=== PATIENT | female | born 1945 | race Caucasian/White ===

== ENCOUNTER 2023-02-14 08:33 | Emergency (ER) | payer OTHER, SELFPAY ==
[2023-02-14 08:34] VITALS: BP 163/88; PULSE 113; RESP 18; TEMP 36.4; O2SAT 98; BMI 19.4
--- NOTE | 2023-02-14 08:47 | EDS_ITS ---
HPI History of Present Illness Chief Complaint: Rash Detail of Chief Complaint: Rash x8 days Informant: patient Narrative Narrative: Patient presents with a rash that started 8 days ago. Patient states the rash is on her back wrapping under her armpit into the anterior chest. Rash painful at times and only involves the left side. She has not had any recent illness. Denies any new soaps or detergents or allergens or any contact with any type of allergic substances. [facility] Medical History (Updated 02/14/23 @ 08:[address] Blanche Arizmendi, ) Anxiety COPD (chronic obstructive pulmonary disease) Lung cancer Home Medications famciclovir 500 mg tablet 500 mg PO Q8H 7 days #21 tabs 02/14/23 [Rx Last Taken Unknown] hydrocodone-acetaminophen 5-325mg 5mg-325mg 1 tab PO Q4H PRN PRN Pain 2 days #10 TABLETS 02/14/23 [Rx Last Taken Unknown] prednisone 20 mg tablet 40 mg (2 x 20 mg) PO DAILY #10 tabs 02/14/23 [Rx Last Taken Unknown] Allergy/AdvReac Type Severity Reaction Status Date / Time fentanyl Allergy Intermediate Rash Verified 02/14/23 08:36 ROS ROS ED Review of Systems ROS Unobtainable: other Constitutional Constitutional ED: Reports lethargy; Denies chills, fever(s), sweats or weight loss Eyes Eyes: Denies blurry vision, change in vision or diplopia ENT ENT ED: Denies rhinorrhea or sore throat Cardiovascular Cardiovascular: Denies chest pain, orthopnea or racing heartbeat Respiratory/Chest Respiratory/Chest: Denies cough, dyspnea, dyspnea on exertion, orthopnea or sputum Gastrointestinal Gastrointestinal: Denies abdominal pain, diarrhea, nausea or vomiting Genitourinary Genitourinary ED: Denies dysuria, hematuria or urinary frequency Musculoskeletal Musculoskeletal: Denies arthralgias, back pain, myalgias or neck pain Integumentary Reports rash; Denies abscess or Abrasions Neurologic Neurologic: Denies headache(s) or weakness Psychiatric Psychiatric: Denies anxiety, depression or suicidal thoughts Endocrine Endocrinology: Denies polydipsia, polyphagia or polyuria Hematologic/Lymphatic Hematologic/Lymphatic: Denies easy bleeding, easy bruising or lymphadenopathy Allergic/Immunologic Allergic/Immunologic ED: Denies mouth swelling, tongue swelling or urticaria EXAM Physical Exam Const Vital Signs: 02/14/23 08:34 Temperature 97.6 F L Temperature Source Temporal Pulse Rate 113 H Respiratory Rate 18 Blood Pressure 163/88 H Blood Pressure Mean 113 Pulse Ox 98 Oxygen Delivery Method Room Air Positive well nourished and well developed General Appearance ED: well developed and NAD HEENT Reports TM's clear and moist mucous membranes normocephalic and atraumatic; Negative for trauma or tenderness Tympanic Membrane ED: Yes TM's clear Eyes PERRL and EOMs intact bilaterally General Eye ED: Negative for pale conjunctiva or scleral icterus Neck no lymphadenopathy, supple and no JVD General: Negative for tenderness Chest Wall inspection of chest normal and palpation of chest normal Chest: Negative for tenderness Resp normal respiratory effort and clear to auscultation bilaterally Effort and Inspection: Negative for respiratory distress or pain with movement Auscultation: Negative for rhonchi, wheezes or diminished lung sounds Cardio regular rate, regular rhythm, S1 normal heart sound, S2 normal heart sound and no murmurs Peripheral Pulses: pulses 2+ throughout GI normal to inspection, nondistended, normoactive bowel sounds, soft to palpation, non-tender, non-distended and no masses Back/Spine no CVA tenderness and no thoracic nor lumbar tenderness Extremity normal to inspection General Extremety ED: Negative for edema General Extremity: Negative for edema Neuro oriented x3, CN's II-XII intact bilaterally, no sensory deficits noted and gait normal Sensorium / Orientation: awake, alert, oriented to person, oriented to place and oriented to time Motor Exam: strength 5/5 throughout and strength abnormal Psych mental status grossly normal Skin no wounds Skin Narrative: Patient with a patchy erythematous rash with small vesicles in clusters consistent with herpes zoster involving dermatomal distribution along the left chest wall. No cellulitic changes. No petechiae noted. MDM MDM MDM Narrative Medical decision making narrative: Patient with 8-day history of painful rash to left chest. On exam consistent with herpes zoster rash. Patient will be started on Famvir as well as prednisone and given a few Rector for pain. Patient advised to follow-up with primary care physician on-call for no doc within next 5 to 7 days. Discharge Plan Triage Chief Complaint: Rash ED Provider: Blanche Arizmendi Dx/Rx/DC Orders Clinical Impression: Herpes zoster Instructions: ED Shingles (Herpes Zoster) Prescriptions: New famciclovir 500 mg tablet 500 mg PO Q8H 7 Days Qty: 21 0RF prednisone 20 mg tablet 40 mg PO DAILY Qty: 10 0RF hydrocodone-acetaminophen [hydrocodone-acetaminophen] 5-325 mg tablet 1 tab PO Q4H PRN PRN (Reason: Pain) 2 Days Qty: 10 0RF Primary Care Provider: Care Physician,No Primary Referrals: Wm Harris MD [Med Staff - [employer]] - 5-7 Days NOT,DEFINED [Non-Staff] - Disposition Disposition: Home, Self Care
== END 2023-02-14 09:16 | disposition home or self-care (01) ==
LOC: ED 09:03
PROVIDERS: Emergency Provider Emergency Medicine; Visit Provider Emergency Medicine
DX: B02.9 Zoster without complications (principal)
CPT/HCPCS: 99282

== ENCOUNTER → 2023-05-24 | Outpatient (CLI) | payer MEDICARE, SELFPAY ==
--- NOTE | 2023-05-24 15:11 | RAD_ITS ---
STUDY: X-RAY CHEST REASON FOR EXAM: Female, 77 years old. COPD TECHNIQUE: PA and lateral views of the chest. COMPARISON: None. FINDINGS: Postsurgical changes with sutures noted within the left mid to upper lobe. Hyperexpansion and extensive COPD related changes are present. There is an opacity overlying the left lower lobe retrocardiac region near the costophrenic margin on lateral projection. There is no demonstrated pleural abnormality. Normal size heart. Normal mediastinum and rafael. Normal visualized pulmonary arteries. There is atherosclerotic tortuosity of the aortic arch and descending thoracic aorta. There is demineralization of the osseous structures. Normal visualized ribs, clavicles, and shoulders. There is no demonstrated abnormality of the visualized soft tissue structures of the upper abdomen. RAD/Chest PA and Lateral IMPRESSION: COPD related changes with findings concerning for infiltrate within the left lower lobe posterior basilar segment near the costophrenic margin on lateral projection, clinically correlate for acute infiltrate. If no infectious etiology consider cross-sectional CT imaging for further assessment. Electronically Signed: Eric Block DO at 17:07 EST ,
--- OUTSIDE RECORDS SUMMARY | 2023-05-24 18:44 | XMS RPT_ITS | CCD ---
Author Name Unknown Address [address] [place] [address] Organization [facility] Care Team Providers Care [facility] Name Role Phone Matias Serna Unavailable MD Matias Serna Primary Care Provider DEWAYNE Garrido Emergency Provider DO Roman Tinsley Emergency Provider Unavai palomo Malik, LOSS PREVENTION SPECIALIST-BC Nicole E Emergency Provider Shannon Sheriff Unavailable MD Matias Serna Primary Care Provider TREVOR Sheriff Attending Provider [phone] MD Matias Serna Primary Care Provider TREVOR Sheriff Shannon Attending Provider [phone] Indio Davidson Unavailable MD Matias Serna Primary Care Provider MD Indoi Davidson Attending Provider [phone] Bullimore, Nicole E Admitting Unavailable Bullimore, Nicole E Attending Unavailable Matias Serna Primary [facility] [place] Unavailable Lety, Kamal Admitting Unavailable Lety Kamal Attending Unavailable Matias Serna Primary [facility] [place] Unavailable Jaziel, Shannon Admitting Unavailable Jaziel Shannon Attending Unavailable Matias Serna Primary [facility] [place] Unavailable Jaziel, Shannon Admitting Unavailable Jaziel Shannon Attending Unavailable Matias Serna Primary [facility] [place] Unavailable Burak Garrido Admitting Unavailable Burak Garrido Attending Unavailable Matias Serna Primary [facility] [place] Unavailable Roman Tinsley Admitting Unavailable Roman Tinsley Attending Unavailable Matias Serna Primary [facility] [place] Unavailable Allergies Allergy Classification Reported Allergen(s) Allergy Type Date of Onset Reaction(s) Facility (20 sources) Adhesive Tape Drug allergy Sores [facility] Other (20 sources) [facility] Allergy 2 Itching, Rash [facility] (1 source) [facility] Drug Allergy 2 [facility] Repository Medications Current Medications Medication Drug Class(es) Dates Sig (Normalized) Sig (Original) [id number] 200 actuat albuterol 0.09 mg/actuat metered dose inhaler (20 sources) beta2-Adrenergic Agonist Start: 04-16-2020 take 1 puff(s) by inhalation every six hours as needed Albuterol Sulfate HFA 108 (90 Base) MCG/ACT 1 puff as needed Inhalation every 6 hours as needed Apr, Active Completed/Discontinued Medications Medication Drug Class(es) Dates Sig (Normalized) Sig (Original) azithromycin 250 mg oral tablet (5 sources) Macrolide Antimicrobial Start: 10-30-2021 End: 12-04-2021 take 2 tablets by mouth once daily, then take 1 tablet by mouth once daily Azithromycin (Zithromax) 250 mg tablet Discontinued 250 MG PO Daily October 30, 2021 12:00am December 04, 2021 1:14pm ZPAK-2 tabs day 1, the 1 tab daily for 4 days benzonatate 200 mg oral capsule (5 sources) Non-narcotic Antitussive Start: 10-30-2021 End: 12-04-2021 take 200 mg by mouth twice daily Benzonatate Discontinued 200 MG PO Twice daily 10 5 October 30, 2021 12:00am December 04, 2021 1:14pm clindamycin 150 mg oral capsule (5 sources) Lincosamide Antibacterial Start: 06-03-2020 End: 10-02-2021 take 450 mg by mouth every eight hours Clindamycin Hcl Discontinued 450 MG PO Q8H 63 June 03, 2020 1:00am October 02, 2021 4:08pm ibandronic acid 150 mg oral tablet (17 sources) Bisphosphonate Start: 03-29-2022 take 1 tablet by mouth once daily Boniva 150 MG 1 tablet 60 minutes before the first food, beverage or medicine of the day with plain water Orally monthly for 90 days Mar, Not-Taking polymyxin b [id number] unt/ml / trimethoprim 1 mg/ml ophthalmic solution (5 sources) Dihydrofolate Reductase Inhibitor Antibacterial, Polymyxin-class Antibacterial Start: 10-02-2021 End: 12-04-2021 take 1 drop(s) into the eye(s) four times daily Polymyxin B Sulf-Trimethoprim (Polytrim) 10,000 unit- 1 mg/mL drops Discontinued 1 DROPS EYE-RIGHT Four times daily 10 October 02, 2021 12:00am December 04, 2021 1:14pm predniSONE 50 mg oral tablet (5 sources) Start: 10-30-2021 End: 12-04-2021 take 50 mg by mouth once daily Prednisone Discontinued 50 MG PO Daily 3 October 30, 2021 12:00am December 04, 2021 1:14pm sulfamethoxazole 800 mg / trimethoprim 160 mg oral tablet (5 sources) Dihydrofolate Reductase Inhibitor Antibacterial, Sulfonamide Antimicrobial Start: 06-03-2020 End: 10-02-2021 take 1 tablet by mouth twice daily Sulfamethoxazole- Trimethoprim (Bactrim Ds) 800-160 mg tablet Discontinued 1 TAB PO Twice daily 14 June 03, 2020 1:00am October 02, 2021 4:08pm Problems Active Problems Problem Classification Problem Date Documented Da te Episodic/Chronic Administrative/social admission (1 source) Other specified counseling Episodic Anxiety disorders (20 sources) Anxiety; Translations: [Anxiety disorder, unspecified] Onset: 07-19-2021 Resolved: 12-15-2021 Chronic Cancer of bronchus; lung (20 sources) Malignant neoplasm of upper lobe of lung ; Translations: [Malignant neoplasm of upper lobe, left bronchus or lung] Chronic Cancer of bronchus; lung (20 sources) History of malignant neoplasm of lung; Translations: [Personal history of other malignant neoplasm of bronchus and lung] Episodic Chronic obstructive pulmonary disease and bronchiectasis (20 sources) Chronic obstructive lung disease; Translations: [Chronic obstructive pulmonary disease, unspecified] Onset: 02-10-2022 10-30-2021 Chronic Disorders of lipid metabolism (20 sources) Dyslipidemia; Translations: [Hyperlipidemia, unspecified] Onset: 02-10-2022 Chronic E Codes: Natural/environment (5 sources) Cat bite - wound; Translations: [Bitten by cat, initial encounter] 06-03-2020 Episodic Immunizations and screening for infectious disease (3 sources) Encounter for immunization Episodic Inflammation; infection of eye (except that caused by tuberculosis or sexually transmitteddisease) (5 sources) Conjunctivitis; Translations: [Unspecified conjunctivitis] 10-02-2021 Episodic Nutritional deficiencies (20 sources) Vitamin D deficiency; Translations: [Vitamin D deficiency, unspecified] Chronic Other ear and sense organ disorders (20 sources) Hearing loss; Translations: [Unspecified hearing loss, unspecified ear] 12-04-2021 Chronic Other lower respiratory disease (20 sources) Lung field abnormal; Translations: [Other nonspecific abnormal finding of lung field] Episodic Other lower respiratory disease (1 source) Other nonspecific abnormal finding of lung field Episodic Other skin disorders (1 source) Other seborrheic keratosis Episodic Screening and history of mental health and substance abuse codes (20 sources) Tobacco use and exposure - finding; Translations: [Personal history of nicotine dependence] Episodic Substance-related disorders (20 sources) Nicotine dependence; Translations: [Nicotine dependence, cigarettes, uncomplicated] Chronic Unclassified (1 source) Unspecified hearing loss, left ear; Translations: [Unspecified hearing loss, left ear] Onset: 12-04-2021 Unclassified (1 source) Cough, unspecified; Translations: [Cough, unspecified] Onset: 10-30-2021 Unclassified (1 source) H57.89 - Other specified disorders of eye and adnexa; Translations: [H57.89 - Other specified disorders of eye and adnexa] Onset: 10-02-2021 Past or Other Problems Problem Classification Problem Date Documented Date Episodic/Chronic Other lower respiratory disease (1 source) Shortness of breath; Translations: [Shortness of breath] Onset: 10-30-2021 Episodic Other screening for suspected conditions (not mental disorders or infectious disease) (7 sources) Electrocardiogram abnormal; Translations: [Abnormal electrocardiogram [ECG] [EKG]] Onset: 03-21-2022 10-30-2021 Episodic Residual codes; unclassified (2 sources) Asymptomatic menopausal state; Translations: [Asymptomatic menopausal state] Onset: 03-21-2022 Episodic Results Test Name Value Interpretation Reference Range Facil ity Vital Signs Date Time Vital Sign Value Performing Clinician Facility 01-23-2023 10:30-0400 Body height 167.64 cm Matias Serna Other [facility] Other 01-23-2023 10:30-0400 Body mass index (BMI) [Ratio] 19.21 kg/m2 Matias Serna Other [facility] Other 01-23-2023 10:30-0400 Body temperature 96.4 [degF] Matias Serna Other [facility] Other 01-23-2023 10:30-0400 Body weight 53.98 kg Matias Serna Other [facility] Other 01-23-2023 10:30-0400 Diastolic blood pressure 78 mm[Hg] Matias Serna Other [facility] Other 01-23-2023 10:30-0400 Respiratory rate 20 /min Matias Serna Other [facility] Other 01-23-2023 10:30-0400 SaO2% (BldA) [Mass fraction] 97 % Matias Serna Other [facility] Other 01-23-2023 10:30-0400 Systolic blood pressure 136 mm[Hg] Matias Serna Other [facility] Other 11-07-2022 14:45-0400 Body height 167.64 cm Matias Serna Other [facility] Other 11-07-2022 14:45-0400 Body mass index (BMI) [Ratio] 20.66 kg/m2 Matias Serna Other [facility] Other 11-07-2022 14:45-0400 Body weight 58.06 kg Matias Serna Other [facility] Other 11-07-2022 14:45-0400 Diastolic blood pressure 70 mm[Hg] Matias Serna Other [facility] Other 11-07-2022 14:45-0400 Respiratory rate 20 /min Matias Serna Other [facility] Other 11-07-2022 14:45-0400 SaO2% (BldA) [Mass fraction] 97 % Matias Serna Other [facility] Other 11-07-2022 14:45-0400 Systolic blood pressure 134 mm[Hg] Matias Serna Other [facility] Other 09-13-2022 11:45-0400 Body height 167.64 cm Indio Noeleli Other [facility] Other 09-13-2022 11:45-0400 Body mass index (BMI) [Ratio] 20.66 kg/m2 Indio Noeleli Other [facility] Other 09-13-2022 11:45-0400 Body temperature 96.9 [degF] Indio Noeleli Other [facility] Other 09-13-2022 11:45-0400 Body weight 58.06 kg Indio Noeleli Other [facility] Other 09-13-2022 11:45-0400 Diastolic blood pressure 72 mm[Hg] Indio Noelban Other [facility] Other 09-13-2022 11:45-0400 Respiratory rate 20 /min Indio Noeleli Other [facility] Other 09-13-2022 11:45-0400 SaO2% (BldA) [Mass fraction] 94 % Indio Davidson Other [facility] Other 09-13-2022 11:45-0400 Systolic blood pressure 148 mm[Hg] Indio Davidson Other [facility] Other 08-01-2022 16:30-0400 Body height 167.64 cm Matias Serna Other [facility] Other 08-01-2022 16:30-0400 Body mass index (BMI) [Ratio] 20.98 kg/m2 Matias Serna Other [facility] Other 08-01-2022 16:30-0400 Body weight 58.97 kg Matias Serna Other [facility] Other 08-01-2022 16:30-0400 Diastolic blood pressure 70 mm[Hg] Matias Serna Other [facility] Other 08-01-2022 16:30-0400 Systolic blood pressure 134 mm[Hg] Matias Serna Other [facility] Other 05-05-2022 16:15-0500 Body height 167.64 cm Matias Serna Other [facility] Other 05-05-2022 16:15-0500 Body mass index (BMI) [Ratio] 21.59 kg/m2 Matias Serna Other [facility] Other 05-05-2022 16:15-0500 Body temperature 97.7 [degF] Matias Serna Other [facility] Other 05-05-2022 16:15-0500 Body weight 60.69 kg Matias Serna Other [facility] Other 05-05-2022 16:15-0500 Diastolic blood pressure 70 mm[Hg] Matias Serna Other [facility] Other 05-05-2022 16:15-0500 Respiratory rate 20 /min Matias Serna Other [facility] Other 05-05-2022 16:15-0500 SaO2% (BldA) [Mass fraction] 98 % Matias Kareem Other [facility] Other 05-05-2022 16:15-0500 Systolic blood pressure 130 mm[Hg] Matias Kareem Other [facility] Other 02-04-2022 12:30-0400 Body height 167.64 cm Shannon Jaziel Other [facility] Other 02-04-2022 12:30-0400 Body mass index (BMI) [Ratio] 21.79 kg/m2 Shannon Jaziel Other [facility] Other 02-04-2022 12:30-0400 Body weight 61.24 kg Shannon Jaziel Other [facility] Other 02-04-2022 12:30-0400 Diastolic blood pressure 82 mm[Hg] Shannon Jaziel Other [facility] Other 02-04-2022 12:30-0400 SaO2% (BldA) [Mass fraction] 95 % Shannon Jaziel Other [facility] Other 02-04-2022 12:30-0400 Systolic blood pressure 140 mm[Hg] Shannon Jaziel Other [facility] Other 12-04-2021 13:15-0400 Body height 167.64 cm MD Matias Serna Work Phone: [facility] 12-04-2021 13:15-0400 Body temperature 97.9 [degF] MD Matias Serna Work Phone: [facility] 12-04-2021 13:15-0400 Body weight 62.4 kg MD Matias Serna Work Phone: [facility] 12-04-2021 13:15-0400 Diastolic blood pressure 75 mm[Hg] MD Matias Serna Work Phone: [facility] 12-04-2021 13:15-0400 Heart rate 76 /min MD Matias Serna Work Phone: [facility] 12-04-2021 13:15-0400 Respiratory rate 18 /min MD Matias Serna Work Phone: [facility] 12-04-2021 13:15-0400 SaO2% (BldA) [Mass fraction] 100 % MD Matias Serna Work Phone: [facility] 12-04-2021 13:15-0400 Systolic blood pressure 162 mm[Hg] MD Matias Serna Work Phone: [facility] 10-30-2021 12:51-0400 Diastolic blood pressure 70 mm[Hg] MD Matias Serna Work Phone: [facility] 10-30-2021 12:51-0400 Heart rate 67 /min MD Matias Serna Work Phone: [facility] 10-30-2021 12:51-0400 Respiratory rate 18 /min MD Matias Serna Work Phone: [facility] 10-30-2021 12:51-0400 SaO2% (BldA) [Mass fraction] 97 % MD Matias Serna Work Phone: [facility] 10-30-2021 12:51-0400 Systolic blood pressure 160 mm[Hg] MD Matias Serna Work Phone: [facility] 10-30-2021 11:08-0400 Body height 168.91 cm MD Matias Serna Work Phone: [facility] 10-30-2021 11:08-0400 Body temperature 97.9 [degF] MD Matias Serna Work Phone: [facility] 10-30-2021 11:08-0400 Body weight 63.5 kg MD Matias Serna Work Phone: [facility] 10-02-2021 16:10-0400 Body height 167.64 cm MD Matias Serna Work Phone: [facility] 10-02-2021 16:10-0400 Body mass index (BMI) [Ratio] 22.4 kg/m2 MD Matias Serna Work Phone: [facility] 10-02-2021 16:10-0400 Body temperature 98.2 [degF] MD Matias Serna Work Phone: [facility] 10-02-2021 16:10-0400 Body weight 63.2 kg MD Matias Serna Work Phone: [facility] 10-02-2021 16:10-0400 Diastolic blood pressure 79 mm[Hg] MD Matias Serna Work Phone: [facility] 10-02-2021 16:10-0400 Heart rate 75 /min MD Matias Serna Work Phone: [facility] 10-02-2021 16:10-0400 Respiratory rate 20 /min MD Matias Serna Work Phone: [facility] 10-02-2021 16:10-0400 SaO2% (BldA) [Mass fraction] 97 % MD Matias Serna Work Phone: [facility] 10-02-2021 16:10-0400 Systolic blood pressure 175 mm[Hg] MD Matias Serna Work Phone: [facility] Encounters Encounter Date Encounter Type Care Provider Facility Start: 02-03-2023 End: 02-03-2023 ambulatory Shannon Sheriff Other [facility] Other Start: 02-03-2023 Nursing evaluation o f patient and report Shannon Sheriff [facility] Start: 01-23-2023 End: 01-23-2023 ambulatory Matias Serna Other [facility] Other Start: 01-23-2023 Office outpatient vi sit 25 minutes Matias T[facility] Start: 01-23-2023 Telephone encounter [facility] Start: 01-05-2023 End: 01-05-2023 ambulatory Matias Serna Other [facility] Other Start: 01-05-2023 Telephone encounter [facility] Start: 12-05-2022 End: 12-05-2022 ambulatory Matias Serna Other [facility] Other Start: 12-05-2022 Telephone encounter [facility] Start: 11-07-2022 End: 11-07-2022 ambulatory Matias Serna Other [facility] Other Start: 11-07-2022 Office outpatient vi sit 15 minutes Matias [facility] Start: 11-07-2022 Telephone encounter Matias quiroga [facility] Start: 10-13-2022 End: 10-13-2022 ambulatory Matias Serna Other [facility] Other Start: 10-13-2022 Telephone encounter Matias quiroga [facility] Start: 09-13-2022 End: 09-13-2022 ambulatory Indio Davidson Other [facility] Other Start: 09-13-2022 Office outpatient vi sit 25 minutes Kamal Lety [facility] Start: 09-12-2022 End: 09-12-2022 ambulatory Matias Serna Other [facility] Other Start: 09-12-2022 Telephone encounter Matias quiroga [facility] Start: 08-17-2022 End: 08-17-2022 ambulatory Kamal Sadieban Facility:[facility] Start: 08-17-2022 End: 08-17-2022 ambulatory MD Matias Serna Work Phone: [facility] Work Phone: Start: 08-17-2022 End: 08-17-2022 Patient encounter procedure MD Matias Serna Work Phone: [facility] [address] Work Phone: Start: 08-15-2022 End: 08-15-2022 ambulatory Matias Serna Other [facility] Other Start: 08-15-2022 Telephone encounter Matias Brooksveronica kimber [facility] Start: 08-01-2022 End: 08-01-2022 ambulatory Matias Serna Other [facility] Other Start: 08-01-2022 Office outpatient vi sit 25 minutes Matias Serna [facility] Start: 07-13-2022 End: 07-13-2022 ambulatory Matias Serna Other [facility] Other Start: 07-13-2022 Telephone encounter Matias Brooksveronica kimber [facility] Start: 06-13-2022 End: 06-13-2022 ambulatory Matias Serna Other [facility] Other Start: 06-13-2022 Telephone encounter Matias quiroga [facility] Start: 05-16-2022 End: 05-16-2022 ambulatory Matias Serna Other [facility] Other Start: 05-16-2022 Telephone encounter Matias quiroga [facility] Start: 05-05-2022 End: 05-05-2022 ambulatory Matias Serna Other [facility] Other Start: 05-05-2022 Office outpatient vi sit 25 minutes Matias Serna [facility] Start: 05-04-2022 End: 05-04-2022 ambulatory Indio Davidson Other [facility] Other Start: 05-04-2022 Telephone encounter Indio Davidson [facility] Start: 04-13-2022 End: 04-13-2022 ambulatory Matias Serna Other [facility] Other Start: 04-13-2022 Telephone encounter Matias quiroga [facility] Start: 03-29-2022 End: 03-29-2022 ambulatory Shannonra Sheriff Other [facility] Other Start: 03-29-2022 Telephone encounter Shannon Sheriff [facility] Start: 03-22-2022 End: 03-22-2022 ambulatory Matias Serna Other [facility] Other Start: 03-22-2022 Telephone encounter Matias quiroga [facility] Start: 03-21-2022 End: 03-21-2022 ambulatory MD Matias Serna Work Phone: [facility] Work Phone: Start: 03-21-2022 End: 03-21-2022 Patient encounter procedure MD Matias Serna Work Phone: [facility] Start: 03-14-2022 End: 03-14-2022 ambulatory Matias Serna Other [facility] Other Start: 03-14-2022 Telephone encounter Matias quiroga [facility] Start: 02-10-2022 End: 02-10-2022 ambulatory Shannon Jaziel Facility:[facility] Start: 02-10-2022 Encounter for genera l adult medical examination without abnormal findings Shannonra Sheriff [facility] Start: 02-10-2022 End: 02-10-2022 ambulatory MD Matias Serna Work Phone: [facility] Work Phone: Start: 02-10-2022 End: 02-10-2022 Patient encounter procedure MD Matias Serna Work Phone: [facility] Start: 02-04-2022 End: 02-04-2022 ambulatory Shannon Sheriff Other [facility] Other Start: 02-04-2022 Patient encounter procedure Shannon Fishmanz [facility] Start: 01-13-2022 End: 01-13-2022 ambulatory Matias Serna Other [facility] Other Start: 01-13-2022 Telephone encounter Matias quiroga [facility] Start: 12-15-2021 End: 12-15-2021 ambulatory Matias Serna Other [facility] Other Start: 12-15-2021 Telephone encounter Matias quiroga [facility] Start: 12-14-2021 End: 12-14-2021 ambulatory Matias Serna Other [facility] Other Start: 12-14-2021 Telephone encounter Matias quiroga [facility] Start: 12-04-2021 End: 12-04-2021 Emergency department patient visit Nicole Malik Facility:[facility] Start: 12-04-2021 End: 12-04-2021 Emergency department patient visit MD Matias Serna Work Phone: [facility] Start: 11-16-2021 End: 11-16-2021 ambulatory Matias Serna Other [facility] Other Start: 11-16-2021 Telephone encounter Matias quiroga [facility] Start: 10-30-2021 End: 10-30-2021 Emergency department patient visit Roman Carlie Tinsley Facility:[facility] Start: 10-30-2021 End: 10-30-2021 Emergency department patient visit MD Matias Serna Work Phone: [facility] Start: 10-18-2021 End: 10-18-2021 ambulatory Matias Serna Other [facility] Other Start: 10-18-2021 Telephone encounter Matias quiroga [facility] Start: 10-04-2021 End: 10-04-2021 ambulatory Matias Serna Other [facility] Other Start: 10-04-2021 Telephone encounter Matias quiroga [facility] Start: 10-02-2021 End: 10-02-2021 Emergency department patient visit Burak Garrido Facility:[facility] Start: 10-02-2021 End: 10-02-2021 Emergency department patient visit MD Matias Serna Work Phone: [facility] Start: 09-15-2021 End: 09-15-2021 ambulatory Matias Serna Other [facility] Other Start: 09-15-2021 Telephone encounter Matias quiroga [facility] Start: 08-16-2021 End: 08-16-2021 ambulatory Matias Serna Other [facility] Other Start: 08-16-2021 Telephone encounter Matias quiroga [facility] Start: 07-19-2021 End: 07-19-2021 ambulatory Matias Serna Other [facility] Other Start: 07-19-2021 Telephone encounter Matias quiroga [facility] Procedures Date Procedure Procedure Detail Performing Clinician Start: 08-17-2022 CT of lungs MD Matias Serna Work Phone: Start: 03-21-2022 Dual energy X-ray absorptiometry MD Matias Serna Work Phone: Start: 03-21-2022 Screening mammograph y of bilateral breasts MD Matias Serna Work Phone: Start: 10-30-2021 Plain chest X-ray MD Dayanna Serna Work Phone: SARS Antigen (LFIA) MD Charbel Serna Work Phone: Plan of Treatment Date Care Activity Detail Author Patient Education [facility] Work Phone: Patient referral [facility] Work Phone: Immunizations Immunization Date Immunization Notes Care Provider Marcin luis 02-03-2023 Prevnar 20 Shannon Sheriff Other [facility] Other 01-23-2023 influenza, high dose seasonal, preservative-free Matias Serna Other [facility] Other 02-04-2022 influenza, high dose seasonal, preservative-free Shannon Sheriff Other [facility] Other 03-24-2021 COVID-19 Vaccine Moderna - Documentation Purposes Only Matias Serna Other [facility] Other 07-23-2020 COVID-19 Vaccine Moderna - Documentation Purposes Only Matias Serna Other [facility] Other 06-25-2020 COVID-19 Vaccine Moderna - Documentation Purposes Only Matias Serna Other [facility] Other 06-03-2020 tetanus toxoid, redu schuyler diphtheria toxoid, and acellular pertussis vaccine, adsorbed Matias Serna Other [facility] 01-16-2018 influenza, injectabl e, quadrivalent, contains preservative Matias Serna Other [facility] Other 01-12-2017 influenza, injectabl e, quadrivalent, contains preservative Matias Serna Other [facility] Other 07-13-2016 pneumococcal conjuga te vaccine, 13 valent Matias Serna Other [facility] Other 02-16-2016 influenza, seasonal, injectable Matias Serna Other [facility] Other 12-09-2013 pneumococcal polysaccharide vaccine, 23 valent Matias Serna Other [facility] Other Payers Date Payer Category Payer Medicare [id number] 2021 Medicare [id number] 2021 Self-pay [id number] 2013 Unknown [id number] Medicare [id number] Medicare [id number] Private Health Insurance [employer] [id number] Unknown [id number] Unknown [id number] Unknown [id number] Unknown [id number] Unknown [id number] Unknown [id number] Social History Date Type Detail Facility Sex Assigned At [facility] Other Start: 10-30-2021 End: 12-04-2021 Tobacco smoking status NHIS Smoker (finding) [facility] Start: 1945 Sex Assigned At Female F [facility] Clinical Notes 12-10-2015 to 02-03-2023 Note Date & Type Note Facility [facility] Other 10-16-2023 Evaluation note* Encounter Date Diagnosis Assessment Notes Treatment Notes Treatment Clinical Notes Jan, Anxiety associated with depression (ICD-10 - F41.8) [facility] Other 10-16-2023 Evaluation note* Encounter Date Diagnosis Assessment Notes Treatment Notes Treatment Clinical Notes Jan, Anxiety associated with depression (ICD-10 - F41.8) Patient remains stable on current dose. Encouraged to stay active and remain involved. Take medication as directed and we will continue to monitor. Jan, Dyslipidemia (ICD-10 - E78.5) Patient is to increase exercise and continue to watch diet. We will continue to monitor with routine blood work. Jan, COPD (chronic obstructive pulmonary disease) (ICD-10 - J44.9) No recent COPD exacerbations. No medication adjustments. Chronic sxs are unchanged, no increased shortness of breath, cough. No sxs of air hunger. Jan, History of lung cancer (ICD-10 - Z85.118) Prior history of lung cancer. Successfully treated. Of course, needs to focus on her continued nicotine abuse. Jan, Smoker (ICD-10 - F17.200) Patient is encouraged to cut back on smoking. Jan, Need for vaccination (ICD-10 - Z23) Flu vaccine given today. Jan, Other Patient was encouraged to find a PCP in [place] for management. She is to get Prevnar 20 vaccine in [place]. [facility] Other 09-28-2023 Evaluation note* Encounter Date Diagnosis Assessment Notes Treatment Notes Treatment Clinical Notes Dec, Anxiety associated with depression (ICD-10 - F41.8) [facility] Other 08-28-2023 Evaluation note* Encounter Date Diagnosis Assessment Notes Treatment Notes Treatment Clinical Notes Nov, Anxiety associated with depression (ICD-10 - F41.8) [facility] Other 07-31-2023 Evaluation note* Encounter Date Diagnosis Assessment Notes Treatment Notes Treatment Clinical Notes Oct, Anxiety associated with depression (ICD-10 - F41.8) [facility] Other 07-31-2023 Evaluation note* Encounter Date Diagnosis Assessment Notes Treatment Notes Treatment Clinical Notes Oct, COPD (chronic obstructive pulmonary disease) (ICD-10 - J44.9) Currently, her COPD remains stable. No ER visits or exacerbations. Of course, her COPD is greatly affected by her continued nicotine abuse. Given her prior history of lung cancer as well, she clearly needs to make a decision about her continued nicotine abuse. Oct, Malignant neoplasm of upper lobe of left lung (ICD-10 - C34.12) Prior history of lung cancer. Successfully treated. Of course, needs to focus on her continued nicotine abuse. Oct, Anxiety associated with depression (ICD-10 - F41.8) Remains stable and well balanced with current management. Takes meds as recommended. No medication side effects. Talked about need for diet and exercise as well as engaging in personal tasks and hobbies that are enjoyable. The concept of mindfullness was discussed as well as ways to promote personal growth. Great length the source of her current anxiety and depression. It is situational, and related to her grandson who currently lives with her. I encouraged her to process this information carefully and consider other options. I do not think she is living in a healthy environment at the present time. At this point, the anxiolytic medication is beneficial and will be continued. Oct, Cigarette nicotine dependence, uncomplicated (ICD-10 - F17.210) In concern given her age and comorbid diagnoses, with her continued nicotine overuse/abuse. She is sicker great risk for recurrent problems. We spent at least 6 minutes today discussing the need for absolute smoking cessation. [facility] Other 07-06-2023 Evaluation note* Encounter Date Diagnosis Assessment Notes Treatment Notes Treatment Clinical Notes Oct, Anxiety associated with depression (ICD-10 - F41.8) [facility] Other 06-06-2023 Evaluation note* Encounter Date Diagnosis Assessment Notes Treatment Notes Treatment Clinical Notes Sep, Chronic obstructive pulmonary disease, unspecified COPD type (ICD-10 - J44.9) Discussed management of COPD today at length, she remains on Trelegy Ellipta daily, uses albuterol inhaler as needed, states that she does have a nebulizer machine and some vials of albuterol left, but has not been using it, encouraged her to use her nebulizer at least in the morning and possibly once in the evening to help with mobilizing secretions and with symptoms otherwise. Sep, Cigarette nicotine dependence, uncomplicated (ICD-10 - F17.210) Patient is well aware of the severity of her lung disease, other risks associated with continued smoking, she was encouraged to work on smoking cessation Sep, Other nonspecific abnormal finding of lung field (ICD-10 - R91.8) [facility] Other 06-05-2023 Evaluation note* Encounter Date Diagnosis Assessment Notes Treatment Notes Treatment Clinical Notes Sep, Anxiety associated with depression (ICD-10 - F41.8) [facility] Other 05-08-2023 Evaluation note* Encounter Date Diagnosis Assessment Notes Treatment Notes Treatment Clinical Notes August, Anxiety associated with depression (ICD-10 - F41.8) [facility] Other 04-24-2023 Evaluation note* Encounter Date Diagnosis Assessment Notes Treatment Notes Treatment Clinical Notes Jul, Anxiety associated with depression (ICD-10 - F41.8) Remains stable and well balanced with current management. Takes meds as recommended. No medication side effects. Talked about need for diet and exercise as well as engaging in personal tasks and hobbies that are enjoyable. The concept of mindfullness was discussed as well as ways to promote personal growth. Jul, Chronic obstructive pulmonary disease, unspecified COPD type (ICD-10 - J44.9) Overall stable. Reviewed management and the need to quit smoking. Specific medications reviewed. Discussed need to be attentive to changes of respiratory status. Jul, Smoker (ICD-10 - F17.200) Is a daily smoker. Long discussion regarding the risks of lung, head and neck, and oral cancer. She clearly understands these risks, but at this point, does not have any strong desire to stop. Nonetheless, I did Encourge her to quit smoking. Given her prior hx of lung cancer( see below), it is hard for me to understand why she isn't more motivated to quit. Spent greater than 5 min in this discussion. Jul, Dyslipidemia (ICD-10 - E78.5) Patient encouraged to monitor diet and exercise regularly & remain active as tolerated. We will continue to monitor with routine lab work. We will continue to monitor without medication at this time. Jul, History of lung cancer (ICD-10 - Z85.118) I reviewed her history of lung cancer. In Dec 2015, had a wedge resection of CARROLL, with dx of Stage 1 moderately differentiated adenocarcinoma, Stage 1 (T1a NOMO). Has been folowed by oncology and pulmonary, with subsequent scans showing multifocal spiculated densities bilaterally. F/U LD CT chest 04/30 and 06/29 have been negative, with followup 09/30 with pulmonology...... [facility] Other 04-05-2023 Evaluation note* Encounter Date Diagnosis Assessment Notes Treatment Notes Treatment Clinical Notes Jul, Anxiety (ICD-10 - F41.9) [facility] Other 03-06-2023 Evaluation note* Encounter Date Diagnosis Assessment Notes Treatment Notes Treatment Clinical Notes Jun, Anxiety (ICD-10 - F41.9) [facility] Other 02-06-2023 Evaluation note* Encounter Date Diagnosis Assessment Notes Treatment Notes Treatment Clinical Notes May, Anxiety (ICD-10 - F41.9) [facility] Other 01-26-2023 Evaluation note* Encounter Date Diagnosis Assessment Notes Treatment Notes Treatment Clinical Notes Apr, Chronic obstructive pulmonary disease, unspecified COPD type (ICD-10 - J44.9) Overall stable. Reviewed managemen. Specific medications reviewed. Discussed need to be attentive to changes of respiratory status. Encourged to quit smoking. Apr, Anxiety (ICD-10 - F41.9) Remains stable and well balanced with current management. Takes meds as recommended. No medication side effects. Talked about need for diet and exercise as well as engaging in personal tasks and hobbies that are enjoyable. The concept of mindfullness was discussed as well as ways to promote personal growth. Apr, Dyslipidemia (ICD-10 - E78.5) Patient encouraged to monitor diet and exercise regularly & remain active as tolerated. We will continue to monitor with routine lab work. Apr, Cigarette nicotine dependence, uncomplicated (ICD-10 - F17.210) Encourged to quit smoking. Apr, Counseling on health promotion and disease prevention (ICD-10 - Z71.89) Recoomendation is to have the second Bivalent booster [facility] Other 01-25-2023 Evaluation note* Encounter Date Diagnosis Assessment Notes Treatment Notes Treatment Clinical Notes Apr, COPD (chronic obstructive pulmonary disease) (ICD-10 - J44.9) [facility] Other 01-04-2023 Evaluation note* Encounter Date Diagnosis Assessment Notes Treatment Notes Treatment Clinical Notes Apr, Anxiety (ICD-10 - F41.9) [facility] Other 12-05-2022 Evaluation note* Encounter Date Diagnosis Assessment Notes Treatment Notes Treatment Clinical Notes Mar, Anxiety (ICD-10 - F41.9) [facility] Other 10-28-2022 Evaluation note* Encounter Date Diagnosis Assessment Notes Treatment Notes Treatment Clinical Notes Jan, Medicare annual wellness visit, initial (ICD-10 - Z00.00) Personalized healthcare advice was given to (). General topics regarding health education were discussed in detail. All preventative issues were discussed including remaining a nonsmoker, colorectal screening, the importance of proper sleep for brain health maintenance, maintaining a heart-healthy balanced diet, recognizing and addressing signs of anxiety and depression, maintaining positive relationships with family and friends She declines coloscopy or Cologuard at this time. Jan, Screening for breast cancer (ICD-10 - Z12.31) Mammogram ordered Jan, Need for influenza vaccination (ICD-10 - Z23) Given today and tolerated well Jan, Postmenopausal (ICD-10 - Z78.0) Jan, Dyslipidemia (ICD-10 - E78.5) It was advised to continue lifestyle modification such as low-cholesterol diet, increased activity and weight loss. We will continue to monitor Jan, COPD (chronic obstructive pulmonary disease) (ICD-10 - J44.9) She does have LDCT yearly and follows up with pulmonology for this Jan, Cigarette nicotine dependence, uncomplicated (ICD-10 - F17.210) She was counseled on smoking cessation and does not wish to quit at this time. Jan, SK (seborrheic keratosis) (ICD-10 - L82.1) She would like large SKs removed from her trunk they are rubbing on clothing, she was referred to derm [facility] Other 10-06-2022 Evaluation note* Encounter Date Diagnosis Assessment Notes Treatment Notes Treatment Clinical Notes Jan, Anxiety (ICD-10 - F41.9) [facility] Other 09-07-2022 Evaluation note* Encounter Date Diagnosis Assessment Notes Treatment Notes Treatment Clinical Notes Dec, Anxiety (ICD-10 - F41.9) [facility] Other 08-09-2022 Evaluation note* Encounter Date Diagnosis Assessment Notes Treatment Notes Treatment Clinical Notes Nov, Anxiety (ICD-10 - F41.9) [facility] Other 07-11-2022 Evaluation note* Encounter Date Diagnosis Assessment Notes Treatment Notes Treatment Clinical Notes Oct, Anxiety (ICD-10 - F41.9) [facility] Other 06-08-2022 Evaluation note* Encounter Date Diagnosis Assessment Notes Treatment Notes Treatment Clinical Notes 08 Jesus, 2022 Anxiety (ICD-10 - F41.9) [facility] Other 05-09-2022 Evaluation note* Encounter Date Diagnosis Assessment Notes Treatment Notes Treatment Clinical Notes August, Anxiety (ICD-10 - F41.9) [facility] Other 04-11-2022 Evaluation note* Encounter Date Diagnosis Assessment Notes Treatment Notes Treatment Clinical Notes Jul, Anxiety (ICD-10 - F41.9) [facility] Other 09-01-2016 History general Narrative - Reported* Type Description Date Medical History generalized osteoarthritis Medical History chronic depression Medical History COPD Medical History Lung Ca (12/2015) Surgical History T & A Surgical History kidney stone Surgical History D&C Surgical History Thoracotomy, Left (Dr. Pereyra) 12/15/15 Hospitalization History tonsillectomy [facility] Other Evaluation noteNo InformationNort [employer] Other Evaluation noteNo assessment information available [facility] Work Phone: Chief Complaint and Reason for Visit Chief Complaint R eye swelling, blur ry vision, pain trouble breathing, cough Chief Complaint R eye swelling, blur ry vision, pain trouble breathing, cough left ear pain Chief Complaint left ear pain Z12.31 Z78.0 Chief Complaint Z00.00;E78.5;J44.9 Z12.31 Z78.0 Chief Complaint j44.9 z87.891 z85.11 8 Advance Directives Advance Directive Response Recorded Date/ Time Advance Directives No December 03, 2016 10:02am Advance Directive Response Recorded Date/ Time Advance Directives No December 03, 2016 9:02am Reason for Referral Reason skin lesion removal Diagnosis 1 SK (seborrheic kerat osis) (L82.1) Referral Organization [facility] Referring Provider First Name Shannon Referring Provider Last Name Jaziel Referring Provider Specialty Nurse Pract li Referred Provider Specialty Dermatology Referral Priority Routine Summary Purpose Family History No Family History Records Found Additional Source Comments REASON FOR VISIT (unrecogniz ed section and content) Clinicalcontrolled RFcontrol led RFcontrolled RFcontrolled RFcontrolled RFCL Referral Inquirycontrolled RFcontrolled RFsawvcontrolled RFCL Labs/DI'sNo Informationcontrolled RfRefill- Trelegy3 month Follow upcontrolled RFcontrolled RFRefills3 month Follow upcontrolled RFcontrolled Rf1 yr f/u LDCTcontrolled RFClinical3 month Follow upcontrolled RfClinicalClinicalPREVNAR VACCINEPatient is moving, wants to see [facility] one last time Care Teams (unrecognized sec tion and content) Team Status: Inactive Member Role Status Dates Matias Serna MD Primary Care Provider Active Burak Garrido APRN Emergency Provider Active Team Status: Active Member Role Status Dates Matias Serna MD Primary Care Provider Active Team Status: Inactive Member Role Status Dates Matias Serna MD Primary Care Provider Active Nicole Malik , [facility] Emergency Provider Active Team Status: Inactive Member Role Status Dates Matias Serna MD Primary Care Provider Active Shannon Sheriff NP-C Attending Provider Active Team Status: Inactive Member Role Status Dates Matias Serna MD Primary Care Provider Active Indio Davidson MD Attending Provider Active Goals (unrecognized section and content) Goals may be documented in a n alternate section INFORMATION SOURCE (unrecogn ized section and content) FOR RECORDS PERTAINING TO PATIENTS WHO ARE OR HAVE BEEN ENROLLED IN A CHEMICAL DEPENDENCY/SUBSTANCEABUSE PROGRAM, SOME INFORMATION MAY BE OMITTED. This clinical summary was aggregated from multiple sources. Caution should be exercised in using it in the provision of clinical care. This summary normalizes information from multiple sources, and as a consequence, information in this document may materially change the coding, format and clinical context of patient data. In addition, data may be omitted in some cases. CLINICAL DECISIONS SHOULD BE BASED ON THE PRIMARY CLINICAL RECORDS. [facility]. provides no warranty or guarantee of the accuracy or completeness of information in this document.
== END | disposition home or self-care (01) ==
PROVIDERS: Referring Provider Family Medicine; Visit Provider Family Medicine
DX: J44.9 Chronic obstructive pulmonary disease, unspecified (principal)
CPT/HCPCS: 71046

== ENCOUNTER → 2023-06-19 | Outpatient (CLI) | payer MEDICARE, SELFPAY ==
--- NOTE | 2023-06-19 14:11 | CT_ITS ---
EXAM: CT CHEST WITH INTRAVENOUS CONTRAST CLINICAL INDICATION: Worsening SOB, hx of lung cancer TECHNIQUE: Helically acquired images were obtained of the chest with intravenous contrast. This CT exam was performed using one or more of the following dose reduction techniques: automated exposure control, adjustment of the mA and/or kV according to patient size, and/or use of iterative reconstruction technique. CONTRAST: IV 100mL Isovue-300 COMPARISON: Chest radiograph, 05/24/2023 FINDINGS: LUNGS AND PLEURAL SPACES: Right lower lobe peribronchial thickening and endobronchial filling defects perhaps related to aspiration, mucous plugging, and/or bronchitis. Diffuse centrilobular emphysema. Scarring in the left lung likely related to partial lobectomy. No pleural effusion or thickening. No pneumothorax. No discrete pulmonary mass. HEART: No significant abnormality. Heart size is normal. No pericardial effusion. MEDIASTINUM: No significant abnormality. No mediastinal or hilar adenopathy. Esophagus is unremarkable. No hiatal hernia. THYROID: No significant abnormality. No thyroid lesions. BONES/JOINTS: No significant abnormality. No suspicious lytic or blastic abnormality. VASCULATURE: Abdominal aortic aneurysm measuring 3.3 cm. The extent of the aneurysm is incompletely visualized. 3.4 cm ascending aortic ectasia. No aortic dissection. No obvious central pulmonary embolism although this study was not performed with the pulmonary embolism protocol. CT/Chest WITH Contrast IMPRESSION: 1. Right lower lobe peribronchial thickening and endobronchial filling defects perhaps related to aspiration, mucous plugging, and/or bronchitis. 2. Diffuse centrilobular emphysema. 3. Scarring in the left lung likely related to partial lobectomy. No discrete pulmonary mass. 4. Abdominal aortic aneurysm measuring 3.3 cm. The extent of the aneurysm is incompletely visualized. Given that it is incompletely evaluated and may be larger outside the [id number], recommend screening evaluation at this time. Electronically Signed: Gurmeet Chapman DO at 23:56 EDT ,
[2023-06-19 14:28] LABS: CREATININE FINGERSTICK < 1.0 mg/dL (0.55-1.02)
--- OUTSIDE RECORDS SUMMARY | 2023-06-19 19:41 | XMS RPT_ITS | CCD ---
Author Name Unknown Address [address] [place] [address] Organization [facility] Care Team Providers Care Oncology Account Specialist Name Role Phone Matias Serna Unavailable MD Matias Serna Primary Care Provider [phone] DEWAYNE Garrido Emergency Provider DO Roman Tinsley Emergency Provider Unavai palomo Malik, CHILD ADVOCATE-BC Nicole E Emergency Provider [phone] Shannon Sheriff Unavailable MD Matias Serna Primary Care Provider TREVOR Sheriff Attending Provider MD Matias Serna Primary Care Provider TREVOR Sheriff Shannon Attending Provider [phone] Indio Davidson Unavailable MD Matias Serna Primary Care Provider MD Indio Davidson Attending Provider [phone] Bullimore, Nicole E Admitting Unavailable Bullimore, Nicole E Attending Unavailable Matias Serna [facility] Unavailable Lety, Kamal Admitting Unavailable Lety Kamal Attending Unavailable Matias Serna [facility] Unavailable Jaziel, Shannon Admitting Unavailable Jaziel Shannon Attending Unavailable Matias Serna [facility] Unavailable Jaziel, Shannon Admitting Unavailable Jaziel Shannon Attending Unavailable Matias Serna [facility] Unavailable Burak Garrido Admitting Unavailable Burak Garrido Attending Unavailable Matias Serna [facility] Unavailable Roman Tinsley Admitting Unavailable Roman Tinsley Attending Unavailable Matias Serna [facility] Unavailable Allergies Allergy Classification Reported Allergen(s) Allergy Type Date of Onset Reaction(s) Facility (20 sources) [facility] Drug allergy Sores [facility] Other (20 sources) [facility] 2 Itching, Rash [facility] (1 source) [facility] Allergy 2 [facility] Repository Medications Current Medications Medication Drug Class(es) Dates Sig (Normalized) Sig (Original) [id number] 200 actuat albuterol 0.09 mg/actuat metered dose [...] for 90 days Mar, Not-Taking polymyxin b 12198 unt/ml / trimethoprim 1 mg/ml ophthalmic solution [...] Body height 167.64 cm Matias Serna Other [facility] Other 01-23-2023 10:30-0400 Body mass index (BMI) [Ratio] 19.21 kg/m2 Matias Serna Other [facility] Other 01-23-2023 10:30-0400 Body temperature 96.4 [degF] Matias Serna Other [facility] Other 01-23-2023 10:30-0400 Body weight 53.98 kg Matias Serna Other [facility] Other 01-23-2023 10:30-0400 Diastolic blood pressure 78 mm[Hg] Matias Serna Other [facility] Other 01-23-2023 10:30-0400 Respiratory rate 20 /min Matias Serna Other [facility] Other 01-23-2023 10:30-0400 SaO2% (BldA) [Mass fraction] 97 % Matias Serna Other [facility] Other 01-23-2023 10:30-0400 Systolic blood pressure 136 mm[Hg] Matias Serna Other [facility] Other 11-07-2022 14:45-0400 Body height 167.64 cm Matias Serna Other [facility] Other 11-07-2022 14:45-0400 Body mass index (BMI) [Ratio] 20.66 kg/m2 Matias Serna Other [facility] Other 11-07-2022 14:45-0400 Body weight 58.06 kg Matias Serna Other [facility] Other 11-07-2022 14:45-0400 Diastolic blood pressure 70 mm[Hg] Matias Serna Other [facility] Other 11-07-2022 14:45-0400 Respiratory rate 20 /min Matias Serna Other [facility] Other 11-07-2022 14:45-0400 SaO2% (BldA) [Mass fraction] 97 % Matias Serna Other [facility] Other 11-07-2022 14:45-0400 Systolic blood pressure 134 mm[Hg] Matias Serna Other [facility] Other 09-13-2022 11:45-0400 Body height 167.64 cm Indio Noeleli Other [facility] Other 09-13-2022 11:45-0400 Body mass index (BMI) [Ratio] 20.66 kg/m2 Indio Noeleli Other [facility] Other 09-13-2022 11:45-0400 Body temperature 96.9 [degF] Indio Noeleli Other [facility] Other 09-13-2022 11:45-0400 Body weight 58.06 kg Indio Noeleli Other [facility] Other 09-13-2022 11:45-0400 Diastolic blood pressure 72 mm[Hg] Indio Noelban Other [facility] Other 09-13-2022 11:45-0400 Respiratory rate 20 /min Indio Noeleli Other [facility] Other 09-13-2022 11:45-0400 SaO2% (BldA) [Mass fraction] 94 % Indio Davidson Other [facility] Other 09-13-2022 11:45-0400 Systolic blood pressure 148 mm[Hg] Indio Davidson Other [facility] Other 08-01-2022 16:30-0400 Body height 167.64 cm Matias Serna Other [facility] Other 08-01-2022 16:30-0400 Body mass index (BMI) [Ratio] 20.98 kg/m2 Matias Serna Other [facility] Other 08-01-2022 16:30-0400 Body weight 58.97 kg Matias Serna Other [facility] Other 08-01-2022 16:30-0400 Diastolic blood pressure 70 mm[Hg] Matias Serna Other [facility] Other 08-01-2022 16:30-0400 Systolic blood pressure 134 mm[Hg] Matias Serna Other [facility] Other 05-05-2022 16:15-0500 Body height 167.64 cm Matias Serna Other [facility] Other 05-05-2022 16:15-0500 Body mass index (BMI) [Ratio] 21.59 kg/m2 Matias Serna Other [facility] Other 05-05-2022 16:15-0500 Body temperature 97.7 [degF] Matias Serna Other [facility] Other 05-05-2022 16:15-0500 Body weight 60.69 kg Matias Serna Other [facility] Other 05-05-2022 16:15-0500 Diastolic blood pressure 70 mm[Hg] Matias Serna Other [facility] Other 05-05-2022 16:15-0500 Respiratory rate 20 /min Matias Serna Other [facility] Other 05-05-2022 16:15-0500 SaO2% (BldA) [Mass fraction] 98 % Matias Kareem Other [facility] Other 05-05-2022 16:15-0500 Systolic blood pressure 130 mm[Hg] Matias Kareem Other [facility] Other 02-04-2022 12:30-0400 Body height 167.64 cm Shannon Jaziel Other [facility] Other 02-04-2022 12:30-0400 Body mass index (BMI) [Ratio] 21.79 kg/m2 Shannon Jaziel Other [facility] Other 02-04-2022 12:30-0400 Body weight 61.24 kg Shannon Jaziel Other [facility] Other 02-04-2022 12:30-0400 Diastolic blood pressure 82 mm[Hg] Shannon Jaziel Other [facility] Other 02-04-2022 12:30-0400 SaO2% (BldA) [Mass fraction] 95 % Shannon Jaziel Other [facility] Other 02-04-2022 12:30-0400 Systolic blood pressure 140 mm[Hg] Shannon Jaziel Other [facility] Other 12-04-2021 13:15-0400 Body height 167.64 cm MD Matias Serna Work Phone: [facility] 12-04-2021 13:15-0400 Body temperature 97.9 [degF] MD Matias Serna Work Phone: [facility] 12-04-2021 13:15-0400 Body weight 62.4 kg MD Matias Serna Work Phone: [facility] 12-04-2021 13:15-0400 Diastolic blood pressure 75 mm[Hg] MD Matias Serna Work Phone: [facility] 12-04-2021 13:15-0400 Heart rate 76 /min MD Matias Serna Work Phone: [facility] 12-04-2021 13:15-0400 Respiratory rate 18 /min MD Matias Serna Work Phone: [facility] 12-04-2021 13:15-0400 SaO2% (BldA) [Mass fraction] 100 % MD Matias Serna Work Phone: [facility] 12-04-2021 13:15-0400 Systolic blood pressure 162 mm[Hg] MD Matias Serna Work Phone: [facility] 10-30-2021 12:51-0400 Diastolic blood pressure 70 mm[Hg] MD Matias Serna Work Phone: [facility] 10-30-2021 12:51-0400 Heart rate 67 /min MD Matias Serna Work Phone: [facility] 10-30-2021 12:51-0400 Respiratory rate 18 /min MD Matias Serna Work Phone: [facility] 10-30-2021 12:51-0400 SaO2% (BldA) [Mass fraction] 97 % MD Matias Serna Work Phone: [facility] 10-30-2021 12:51-0400 Systolic blood pressure 160 mm[Hg] MD Matias Serna Work Phone: [facility] 10-30-2021 11:08-0400 Body height 168.91 cm MD Matias Serna Work Phone: [facility] 10-30-2021 11:08-0400 Body temperature 97.9 [degF] MD Matias Serna Work Phone: [facility] 10-30-2021 11:08-0400 Body weight 63.5 kg MD Matias Serna Work Phone: [facility] 10-02-2021 16:10-0400 Body height 167.64 cm MD Matias Serna Work Phone: [facility] 10-02-2021 16:10-0400 Body mass index (BMI) [Ratio] 22.4 kg/m2 MD Matias Serna Work Phone: [facility] 10-02-2021 16:10-0400 Body temperature 98.2 [degF] MD Matias Serna Work Phone: [facility] 10-02-2021 16:10-0400 Body weight 63.2 kg MD Matias Serna Work Phone: [facility] 10-02-2021 16:10-0400 Diastolic blood pressure 79 mm[Hg] MD Matias Serna Work Phone: [facility] 10-02-2021 16:10-0400 Heart rate 75 /min MD Matias Serna Work Phone: [facility] 10-02-2021 16:10-0400 Respiratory rate 20 /min MD Matias Serna Work Phone: [facility] 10-02-2021 16:10-0400 SaO2% (BldA) [Mass fraction] 97 % MD Matias Serna Work Phone: [facility] 10-02-2021 16:10-0400 Systolic blood pressure 175 mm[Hg] MD Matias Serna Work Phone: [facility] Encounters Encounter Date Encounter Type Care Provider Facility Start: 02-03-2023 End: 02-03-2023 ambulatory Shannon Sheriff Other [facility] Other Start: 02-03-2023 Nursing evaluation o f patient and report Shannon Sheriff [facility] Start: 01-23-2023 End: 01-23-2023 ambulatory Matias Serna Other [facility] Other Start: 01-23-2023 Office outpatient vi sit 25 minutes Matias TANNER [facility] Start: 01-23-2023 Telephone encounter [facility] Start: 01-05-2023 End: 01-05-2023 ambulatory Matias Serna Other [facility] Other Start: 01-05-2023 Telephone encounter [facility] Start: 12-05-2022 End: 12-05-2022 ambulatory Matias Serna Other [facility] Other Start: 12-05-2022 Telephone encounter [facility] Start: 11-07-2022 End: 11-07-2022 ambulatory Matias Serna Other [facility] Other Start: 11-07-2022 Office outpatient vi sit 15 minutes Matias TANNER [facility] Start: 11-07-2022 Telephone encounter Matias quiroga [facility] Start: 10-13-2022 End: 10-13-2022 ambulatory Matias Serna Other [facility] Other Start: 10-13-2022 Telephone encounter Matias quiroga [facility] Start: 09-13-2022 End: 09-13-2022 ambulatory Indio Davidson Other [facility] Other Start: 09-13-2022 Office outpatient vi sit 25 minutes Kamal Lety [facility] Start: 09-12-2022 End: 09-12-2022 ambulatory Matias Serna Other [facility] Other Start: 09-12-2022 Telephone encounter Matias quiroga [facility] Start: 08-17-2022 End: 08-17-2022 ambulatory Kamal Sadieban Facility:[facility] Start: 08-17-2022 End: 08-17-2022 ambulatory MD Matias Serna Work Phone: [facility] Work Phone: Start: 08-17-2022 End: 08-17-2022 Patient encounter procedure MD Matias Serna Work Phone: [facility] [address] Work Phone: Start: 08-15-2022 End: 08-15-2022 ambulatory Matias Serna Other [facility] Other Start: 08-15-2022 Telephone encounter Matias Brooksveronica kimber [facility] Start: 08-01-2022 End: 08-01-2022 ambulatory Matias Serna Other [facility] Other Start: 08-01-2022 Office outpatient vi sit 25 minutes Matias Serna [facility] Start: 07-13-2022 End: 07-13-2022 ambulatory Matias Serna Other [facility] Other Start: 07-13-2022 Telephone encounter Matias Brooksveronica kimber [facility] Start: 06-13-2022 End: 06-13-2022 ambulatory Matias Serna Other [facility] Other Start: 06-13-2022 Telephone encounter Matias quiroga [facility] Start: 05-16-2022 End: 05-16-2022 ambulatory Matias Serna Other [facility] Other Start: 05-16-2022 Telephone encounter Matias quiroga [facility] Start: 05-05-2022 End: 05-05-2022 ambulatory Matias Serna Other [facility] Other Start: 05-05-2022 Office outpatient vi sit 25 minutes Matias Serna [facility] Start: 05-04-2022 End: 05-04-2022 ambulatory Indio Davidson Other [facility] Other Start: 05-04-2022 Telephone encounter Indio Davidson [facility] Start: 04-13-2022 End: 04-13-2022 ambulatory Matias Serna Other [facility] Other Start: 04-13-2022 Telephone encounter Matias quiroga [facility] Start: 03-29-2022 End: 03-29-2022 ambulatory Shannonra Sheriff Other [facility] Other Start: 03-29-2022 Telephone encounter Shannon Sheriff [facility] Start: 03-22-2022 End: 03-22-2022 ambulatory Matias Serna Other [facility] Other Start: 03-22-2022 Telephone encounter Matias quiroga [facility] Start: 03-21-2022 End: 03-21-2022 ambulatory MD Matias Serna Work Phone: [facility] Work Phone: Start: 03-21-2022 End: 03-21-2022 Patient encounter procedure MD Matias Serna Work Phone: [facility] Start: 03-14-2022 End: 03-14-2022 ambulatory Matias Serna Other [facility] Other Start: 03-14-2022 Telephone encounter Matias quiroga [facility] Start: 02-10-2022 End: 02-10-2022 ambulatory Shannon Jaziel Facility:[facility] Start: 02-10-2022 Encounter for genera l adult medical examination without abnormal findings Shannonra Sheriff [facility] Start: 02-10-2022 End: 02-10-2022 ambulatory MD Matias Serna Work Phone: [facility] Work Phone: Start: 02-10-2022 End: 02-10-2022 Patient encounter procedure MD Matias Serna Work Phone: [facility] Start: 02-04-2022 End: 02-04-2022 ambulatory Shannon Sheriff Other [facility] Other Start: 02-04-2022 Patient encounter procedure Shannon Fishmanz [facility] Start: 01-13-2022 End: 01-13-2022 ambulatory Matias Serna Other [facility] Other Start: 01-13-2022 Telephone encounter Matias quiroga [facility] Start: 12-15-2021 End: 12-15-2021 ambulatory Matias Serna Other [facility] Other Start: 12-15-2021 Telephone encounter Matias quiroga [facility] Start: 12-14-2021 End: 12-14-2021 ambulatory Matias Serna Other [facility] Other Start: 12-14-2021 Telephone encounter Matias quiroga [facility] Start: 12-04-2021 End: 12-04-2021 Emergency department patient visit Nicole Malik Facility:[facility] Start: 12-04-2021 End: 12-04-2021 Emergency department patient visit MD Matias Serna Work Phone: [facility] Start: 11-16-2021 End: 11-16-2021 ambulatory Matias Serna Other [facility] Other Start: 11-16-2021 Telephone encounter Matias quiroga [facility] Start: 10-30-2021 End: 10-30-2021 Emergency department patient visit Roman Carlie Tinsley Facility:[facility] Start: 10-30-2021 End: 10-30-2021 Emergency department patient visit MD Matias Serna Work Phone: [facility] Start: 10-18-2021 End: 10-18-2021 ambulatory Matias Serna Other [facility] Other Start: 10-18-2021 Telephone encounter Matias quiroga [facility] Start: 10-04-2021 End: 10-04-2021 ambulatory Matias Serna Other [facility] Other Start: 10-04-2021 Telephone encounter Matias quiroga [facility] Start: 10-02-2021 End: 10-02-2021 Emergency department patient visit Burak Garrido Facility:[facility] Start: 10-02-2021 End: 10-02-2021 Emergency department patient visit MD Matias eSrna Work Phone: [facility] Start: 09-15-2021 End: 09-15-2021 ambulatory Matias Serna Other [facility] Other Start: 09-15-2021 Telephone encounter Matias quiroga [facility] Start: 08-16-2021 End: 08-16-2021 ambulatory Matias Serna Other [facility] Other Start: 08-16-2021 Telephone encounter Matias quiroga [facility] Start: 07-19-2021 End: 07-19-2021 ambulatory Matias Serna Other [facility] Other Start: 07-19-2021 Telephone encounter Matias quiroga [facility] Procedures Date Procedure Procedure Detail [...] Date Care Activity Detail Author Patient Education [facility] Work Phone: Patient referral [facility] Work Phone: Immunizations Immunization Date Immunization Notes Care Provider Marcin luis 02-03-2023 Prevnar 20 Shannon Sheriff Other [facility] Other 01-23-2023 influenza, high dose seasonal, preservative-free Matias Serna Other [facility] Other 02-04-2022 influenza, high dose seasonal, preservative-free Shannon Sheriff Other [facility] Other 03-24-2021 COVID-19 Vaccine Moderna - Documentation Purposes Only Matias Serna Other [facility] Other 07-23-2020 COVID-19 Vaccine Moderna - Documentation Purposes Only Matias Serna Other [facility] Other 06-25-2020 COVID-19 Vaccine Moderna - Documentation Purposes Only Matias Serna Other [facility] Other 06-03-2020 tetanus toxoid, redu schuyler diphtheria toxoid, and acellular pertussis vaccine, adsorbed Matias Serna Other [facility] 01-16-2018 influenza, injectabl e, quadrivalent, contains preservative Matias Serna Other [facility] Other 01-12-2017 influenza, injectabl e, quadrivalent, contains preservative Matias Serna Other [facility] Other 07-13-2016 pneumococcal conjuga te vaccine, 13 valent Matias Serna Other [facility] Other 02-16-2016 influenza, seasonal, injectable Matias Serna Other [facility] Other 12-09-2013 pneumococcal polysaccharide vaccine, 23 valent Matias Serna Other [facility] Other Payers Date Payer Category Payer Medicare [id number] 2021 Medicare [id number] 2021 Self-pay [id number] 2013 [id number] Medicare [id number] Medicare [id number] Private Health Insurance [employer] [id number] Unknown [id number] Unknown [id number] Unknown [id number] Unknown [id number] Unknown [id number] Unknown [id number] Social History Date Type Detail Facility Sex Assigned At [facility] Other Start: 10-30-2021 End: 12-04-2021 Tobacco smoking status NHIS Smoker (finding) [facility] Start: 1945 Sex Assigned At Female [facility] Clinical Notes 12-10-2015 to 02-03-2023 Note Date & Type Note Facility [facility] Other 10-16-2023 Evaluation note* Encounter Date Diagnosis Assessment Notes Treatment Notes Treatment Clinical Notes Jan, Anxiety associated with depression (ICD-10 - F41.8) [facility] Other 10-16-2023 Evaluation note* Encounter Date Diagnosis [...] was encouraged to find a PCP in [place] for management. She is to get Prevnar 20 vaccine in [place]. [facility] Other 09-28-2023 Evaluation note* Encounter Date Diagnosis Assessment Notes Treatment Notes Treatment Clinical Notes Dec, Anxiety associated with depression (ICD-10 - F41.8) [facility] Other 08-28-2023 Evaluation note* Encounter Date Diagnosis Assessment Notes Treatment Notes Treatment Clinical Notes Nov, Anxiety associated with depression (ICD-10 - F41.8) [facility] Other 07-31-2023 Evaluation note* Encounter Date Diagnosis Assessment Notes Treatment Notes Treatment Clinical Notes Oct, Anxiety associated with depression (ICD-10 - F41.8) [facility] Other 07-31-2023 Evaluation note* Encounter Date Diagnosis [...] discussing the need for absolute smoking cessation. [facility] Other 07-06-2023 Evaluation note* Encounter Date Diagnosis Assessment Notes Treatment Notes Treatment Clinical Notes Oct, Anxiety associated with depression (ICD-10 - F41.8) [facility] Other 06-06-2023 Evaluation note* Encounter Date Diagnosis [...] finding of lung field (ICD-10 - R91.8) [facility] Other 06-05-2023 Evaluation note* Encounter Date Diagnosis Assessment Notes Treatment Notes Treatment Clinical Notes Sep, Anxiety associated with depression (ICD-10 - F41.8) [facility] Other 05-08-2023 Evaluation note* Encounter Date Diagnosis Assessment Notes Treatment Notes Treatment Clinical Notes August, Anxiety associated with depression (ICD-10 - F41.8) [facility] Other 04-24-2023 Evaluation note* Encounter Date Diagnosis [...] been negative, with followup 09/30 with pulmonology...... [facility] Other 04-05-2023 Evaluation note* Encounter Date Diagnosis Assessment Notes Treatment Notes Treatment Clinical Notes Jul, Anxiety (ICD-10 - F41.9) [facility] Other 03-06-2023 Evaluation note* Encounter Date Diagnosis Assessment Notes Treatment Notes Treatment Clinical Notes Jun, Anxiety (ICD-10 - F41.9) [facility] Other 02-06-2023 Evaluation note* Encounter Date Diagnosis Assessment Notes Treatment Notes Treatment Clinical Notes May, Anxiety (ICD-10 - F41.9) [facility] Other 01-26-2023 Evaluation note* Encounter Date Diagnosis [...] is to have the second Bivalent booster [facility] Other 01-25-2023 Evaluation note* Encounter Date Diagnosis Assessment Notes Treatment Notes Treatment Clinical Notes Apr, COPD (chronic obstructive pulmonary disease) (ICD-10 - J44.9) [facility] Other 01-04-2023 Evaluation note* Encounter Date Diagnosis Assessment Notes Treatment Notes Treatment Clinical Notes Apr, Anxiety (ICD-10 - F41.9) [facility] Other 12-05-2022 Evaluation note* Encounter Date Diagnosis Assessment Notes Treatment Notes Treatment Clinical Notes Mar, Anxiety (ICD-10 - F41.9) [facility] Other 10-28-2022 Evaluation note* Encounter Date Diagnosis [...] on clothing, she was referred to derm [facility] Other 10-06-2022 Evaluation note* Encounter Date Diagnosis Assessment Notes Treatment Notes Treatment Clinical Notes Jan, Anxiety (ICD-10 - F41.9) [facility] Other 09-07-2022 Evaluation note* Encounter Date Diagnosis Assessment Notes Treatment Notes Treatment Clinical Notes Dec, Anxiety (ICD-10 - F41.9) [facility] Other 08-09-2022 Evaluation note* Encounter Date Diagnosis Assessment Notes Treatment Notes Treatment Clinical Notes Nov, Anxiety (ICD-10 - F41.9) [facility] Other 07-11-2022 Evaluation note* Encounter Date Diagnosis Assessment Notes Treatment Notes Treatment Clinical Notes Oct, Anxiety (ICD-10 - F41.9) [facility] Other 06-08-2022 Evaluation note* Encounter Date Diagnosis Assessment Notes Treatment Notes Treatment Clinical Notes 08 Jesus, 2022 Anxiety (ICD-10 - F41.9) [facility] Other 05-09-2022 Evaluation note* Encounter Date Diagnosis Assessment Notes Treatment Notes Treatment Clinical Notes August, Anxiety (ICD-10 - F41.9) [facility] Other 04-11-2022 Evaluation note* Encounter Date Diagnosis Assessment Notes Treatment Notes Treatment Clinical Notes Jul, Anxiety (ICD-10 - F41.9) [facility] Other 09-01-2016 History general Narrative - Reported* Type Description Date Medical History generalized osteoarthritis Medical History chronic depression Medical History COPD Medical History Lung Ca (12/2015) Surgical History T & A Surgical History kidney stone Surgical History D&C Surgical History Thoracotomy, Left (Dr. Pereyra) 12/15/15 Hospitalization History tonsillectomy [facility] Other Evaluation noteNo InformationNort Stipple Other Evaluation noteNo assessment information available [facility] Work Phone: Chief Complaint and Reason [...] SK (seborrheic kerat osis) (L82.1) Referral Organization [facility] Referring Provider First Name Shannon Referring Provider Last Name Jaziel Referring Provider Specialty Nurse Pract il Referred Provider Specialty Dermatology Referral Priority Routine [...] Primary Care Provider Active Nicole Malik , [facility] Emergency Provider Active Team Status: Inactive Member [...] BE BASED ON THE PRIMARY CLINICAL RECORDS. [facility] [employer] [facility]. provides no warranty or guarantee of the accuracy or completeness of information in this document.
== END | disposition home or self-care (01) ==
LOC: CT 13:55
PROVIDERS: PCP Family Medicine; Referring Provider Family Medicine; Visit Provider Family Medicine
DX: Z85.118 Personal history of other malignant neoplasm of bronchus and lung (principal)
CPT/HCPCS: 71260; Q9967

== ENCOUNTER → 2023-08-22 | Outpatient (CLI) | payer MEDICARE, SELFPAY ==
[2023-08-22 16:32] LABS: Absolute Lymphocyte Count 2.25 X10^3/uL (0.83-4.51); Absolute Neutrophil Count 4.5 X10^3/uL (2.0-7.7); Basophil# 0.04 X10^3/uL; Basophil% 0.5 % (0-1); Eosinophil# 0.19 X10^3/uL; Eosinophils% 2.5 % (0-5); Hematocrit 46.3 % (37-47); Hemoglobin 15.5 g/dL (12.0-15.0); Lymphocyte # 2.25 X10^3/ul (0.83-4.51); Lymphocyte % 29.5 % (19-41); Mean Corp Hgb Conc 33.5 g/dL (32-36); Mean Corpuscular Hgb 29.5 pg (27.0-32.0); Mean Platelet Vol. 11.4 fl (6.2-12.0); Monocyte# 0.62 X10^3/uL; Monocyte% 8.1 % (0-10); NRBC Flagged by Analyzer 0 % (0-5); Neutrophil # 4.49 X10^3/uL (2.7-7.7); Platelet Count 245 K/mm3 (150-450); RBC Distribution Width CV 14.3 % (11.6-14.6); RBC Distribution Width SD 45.9 fl (35.1-43.9); Red Blood Count 5.26 M/mm3 (4.2-5.4); White Blood Count 7.6 K/mm3 (4.4-11.0)
[2023-08-22 16:50] LABS: Vitamin D,25 Hydroxy 11.8 ng/mL
[2023-08-22 17:08] LABS: ALB/GLOB Ratio 1.3 RATIO (0.9-2.4); AST(SGOT) 9 U/L (15-37); Alanine Aminotransfer ALT/SGPT 11 U/L (13-56); Albumin, Serum 3.9 g/dL (3.2-5.0); Alkaline Phosphatase 78 U/L (45-117); Anion Gap 5 (5-15); BUN 4 mg/dL (7-18); BUN/Creat Ratio 8.3 RATIO (10-20); Calcium,Total 8.8 mg/dL (8.5-10.1); Chloride 98 mmol/L (98-107); Cholesterol 191 mg/dL (200); Creatinine, Serum 0.48 mg/dL (0.55-1.02); EST Glomerular Filtration Rate 133 mL/min (>60); Est Glom Filt Rate - Afr Amer 161 mL/min (>60); Globulin 3.1 g/dL (2.2-4.2); Glucose 89 mg/dL (74-106); High Density Lipoprotein 63 mg/dL; Potassium 4.1 mmol/L (3.5-5.1); Sodium Level 131 mmol/L (136-145); Thyroid Stim Hormone (TSH) 2.42 uIU/mL (0.358-3.74); Triglycerides 124 mg/dL; Very Low Density Lipoprotein 25 mg/dL (5-40)
== END | disposition home or self-care (01) ==
LOC: MFPLAB 15:16
PROVIDERS: PCP Family Medicine; Visit Provider Family Medicine
DX: R42 Dizziness and giddiness (principal); Z85.118 Personal history of other malignant neoplasm of bronchus and lung
CPT/HCPCS: 36415; 80053; 80061; 82306; 84443; 85025

== ENCOUNTER → 2024-08-19 | Outpatient (CLI) | payer MEDICARE, SELFPAY ==
[2024-08-19 18:04] LABS: Absolute Neutrophil Count 6.1 X10^3/uL (2.0-7.7); Basophil# 0.08 X10^3/uL; Basophil% 0.9 % (0-1); Eosinophil# 0.14 X10^3/uL; Eosinophils% 1.5 % (0-5); Hematocrit 44.8 % (37-47); Hemoglobin 14.8 g/dL (12.0-15.0); Lymphocyte % 23.8 % (19-41); Mean Corpuscular Hgb 30.2 pg (27.0-32.0); Mean Corpuscular Volume 91.4 fL (81-99); Mean Platelet Vol. 10.3 fl (6.2-12.0); Monocyte# 0.66 X10^3/uL; Monocyte% 7.1 % (0-10); NRBC Flagged by Analyzer 0 % (0-5); Neutrophil # 6.12 X10^3/uL (2.7-7.7); Neutrophil % 66.1 % (47-70); Platelet Count 493 K/mm3 (150-450); RBC Distribution Width CV 14.3 % (11.6-14.6); RBC Distribution Width SD 47.8 fl (35.1-43.9); White Blood Count 9.3 K/mm3 (4.4-11.0)
[2024-08-19 19:12] LABS: ALB/GLOB Ratio 1.6 RATIO (0.9-2.4); AST(SGOT) 16 U/L (<=31); Alanine Aminotransfer ALT/SGPT 7 U/L (<=34); Albumin, Serum 4.3 g/dL (3.4-4.8); Alkaline Phosphatase 80 U/L (35-104); Anion Gap 13 (5-15); BUN 6 mg/dL (4-19); BUN/Creat Ratio 12.1 RATIO (10-20); Calcium,Total 9.3 mg/dL (7.6-11.0); Chloride 96 mmol/L (98-108); Cholesterol 204 mg/dL (<=200); Creatinine, Serum 0.48 mg/dL (0.70-1.20); EST Glomerular Filtration Rate 97 (>60); Globulin 2.7 g/dL (2.2-4.2); Glucose 86 mg/dL (70-99); High Density Lipoprotein 57 mg/dL; Low Density Lipoprotein Calc. 127 mg/dL; Potassium 4.4 mmol/L (3.3-5.1); Sodium Level 132 mmol/L (133-145); Total Bilirubin 0.31 mg/dL (0.00-1.30); Triglycerides 104 mg/dL; Very Low Density Lipoprotein 21 mg/dL (5-40)
[2024-08-19 19:20] LABS: Vitamin D,25 Hydroxy 23.8 ng/mL (30-100)
== END | disposition home or self-care (01) ==
LOC: MFPLAB 14:59
PROVIDERS: PCP Family Medicine; Referring Provider Family Medicine; Visit Provider Family Medicine
DX: D58.2 Other hemoglobinopathies (principal); E55.9 Vitamin D deficiency, unspecified; Z72.0 Tobacco use; Z13.1 Encounter for screening for diabetes mellitus
CPT/HCPCS: 36415; 80053; 80061; 82306; 85025

== ENCOUNTER → 2024-09-03 | Outpatient (CLI) | payer MEDICARE, SELFPAY ==
[2024-09-03 18:47] LABS: Anion Gap 13 (5-15); BUN 6 mg/dL (4-19); BUN/Creat Ratio 11.8 RATIO (10-20); Calcium,Total 9.2 mg/dL (7.6-11.0); Carbon Dioxide 23.7 mmol/L (21.0-32.0); Chloride 96 mmol/L (98-108); Creatinine, Serum 0.52 mg/dL (0.70-1.20); EST Glomerular Filtration Rate 95 (>60); Glucose 101 mg/dL (70-99); Potassium 4.6 mmol/L (3.3-5.1); Sodium Level 132 mmol/L (133-145)
== END | disposition home or self-care (01) ==
LOC: MFPLAB 14:37
PROVIDERS: PCP Family Medicine; Referring Provider Family Medicine; Visit Provider Family Medicine
DX: E55.9 Vitamin D deficiency, unspecified (principal)
CPT/HCPCS: 36415; 80048

== ENCOUNTER 2025-02-09 18:23 | Inpatient (IN) | payer MEDICARE, SELFPAY ==
[2025-02-09] VITALS (7 sets, daily range): BP systolic 116–151; BP diastolic 57–129; PULSE 90–120; RESP 14–26; TEMP 36.1–37; O2SAT 92–98; BMI 15.9
--- NOTE | 2025-02-09 18:35 | RAD_ITS ---
PROCEDURE: RAD/Chest PA and Lateral
[2025-02-09 18:37] LABS: Hematocrit 43.7 % (37-47); Hemoglobin 15.0 g/dL (12.0-15.0); Immature Granulocytes Count 0.050 X10^3/uL (0.0-0.0); Mean Corp Hgb Conc 34.3 g/dL (32-36); Mean Corpuscular Volume 87.2 fL (81-99); Mean Platelet Vol. 9.5 fl (6.2-12.0); NRBC Flagged by Analyzer 0 % (0-5); Platelet Count 368 K/mm3 (150-450); RBC Distribution Width CV 13.4 % (11.6-14.6); RBC Distribution Width SD 43.1 fl (35.1-43.9); Red Blood Count 5.01 M/mm3 (4.2-5.4); White Blood Count 12.5 K/mm3 (4.4-11.0)
[2025-02-09 19:00] LABS: Anion Gap 14 (5-15); BUN 4 mg/dL (4-19); BUN/Creat Ratio 10.0 RATIO (10-20); Calcium,Total 9.4 mg/dL (7.6-11.0); Carbon Dioxide 25.3 mmol/L (21.0-32.0); Chloride 88 mmol/L (98-108); Estimated Creatinine Clearance 40.33 ml/min (50-250); Glucose 110 mg/dL (70-99); Potassium 4.3 mmol/L (3.3-5.1); Troponin T High Sensitivity 11 ng/L (<=14)
--- NOTE | 2025-02-09 19:20 | ED.VIS.DYS ---
HPI History of Present Illness Chief Complaint: Shortness of Breath Informant: patient Onset/Context/Timing Onset: Today and Yesterday Context: gradual Timing: Continuous Quality: Positive for Dyspnea on exertion and Wheezing Current Severity: Moderate Worsened by: Exertion and Coughing Relieved by: Nothing Associated Symptoms cough and clear sputum Chest Pain: Positive for None Narrative Narrative: 79-year-old female history of COPD prior lung cancer that being resected. Not on oxygen at home. States she recently URI over the last week. Started having wheezing and shortness of breath yesterday and today. Clear sputum. No chest pain. No hemoptysis. No leg pain or swelling. No history of DVT or PE or risk factors. Denies any fever. PE Risk Factors: Positive for Cancer (Prior lung cancer history resected.); Negative for Prior DVT or PE, Recent immobilization, Recent surgery or Recent travel Prior similar symptoms: Yes Recent Illness/Hospitalization: No [facility] Medical History COPD (chronic obstructive pulmonary disease) Lung cancer Anxiety Home Medications ?Medication ?Instructions ?Recorded ?Last Taken ?Type fluticasone fur. 200 mcg-umeclid 1 ea inhalation DAILY 02/09/25 Unknown History 62.5 mcg-vilant 25 mcg inhalat.powder (Trelegy Ellipta) lorazepam 0.5 mg tablet 0.5 mg PO BID PRN PRN anxiety 02/09/25 Unknown History Allergy/AdvReac Type Severity Reaction Status Date / Time fentanyl Allergy Intermediate Rash Verified 02/09/25 18:23 Social History Smoking Status: Current every day smoker tobacco type: cigarettes ROS ROS ED ROS Narrative Cough. Clear sputum. No chest pain. No fever. Shortness of breath. Wheezing. Constitutional Constitutional ED: Denies chills or fever(s) Eyes Eyes: Denies blurry vision ENT ENT ED: Denies ear pain Cardiovascular Cardiovascular: Denies chest pain or palpitations Respiratory/Chest Respiratory/Chest: Reports cough, dyspnea and sputum Gastrointestinal Gastrointestinal: Denies abdominal pain Genitourinary Genitourinary ED: Denies dysuria or hematuria Musculoskeletal Musculoskeletal: Denies arthralgias Integumentary Denies abscess Neurologic Neurologic: Denies headache(s) Psychiatric Psychiatric: Denies anxiety or depression Hematologic/Lymphatic Hematologic/Lymphatic: Denies easy bleeding, easy bruising or lymphadenopathy Allergic/Immunologic Allergic/Immunologic ED: Denies mouth swelling, tongue swelling or urticaria EXAM Physical Exam Narrative Exam Narrative: 79-year-old female sitting upright in bed. She is tachycardic. Pulse ox 96% on room air no signs of hypoxia. H EENT exam pupils round react light. Moist mutes membranes. Neck nontender. No JVD. No lymphadenopathy. Back nontender. Lungs prolonged expiratory phase. Expiratory wheezing. Coarse breath sounds. No rhonchi. No rales. Heart tachycardic 110 no murmur. Chest wall ribs nontender. Cachectic. Abdomen soft nontender normal bowel sounds without peritoneal signs. Moving all 4 extremities. Equal rubber tubing backer strength. Dorsi plantarflexion intact. Calves are nontender without edema or cords. Neurologically she is awake and alert. Answering questions following commands. No focal motor deficits. Const Vital Signs: 02/09/25 18:23 02/09/25 19:34 02/09/25 20:05 Temperature 97 F L Temperature Source Temporal Pulse Rate 120 H 90 Respiratory Rate 26 H 18 Respiratory Effort Respiratory Depth Respiratory Pattern Normal Blood Pressure 151/117 H Blood Pressure Mean 128 Pulse Ox 96 Oxygen Delivery Method Room Air Room Air 02/09/25 20:05 02/09/25 20:05 02/09/25 20:23 Temperature Temperature Source Pulse Rate 97 Respiratory Rate 20 H 14 Respiratory Effort Short of Breath Respiratory Depth Shallow Respiratory Pattern Tachypnea Blood Pressure 151/129 H Blood Pressure Mean 136 Pulse Ox 98 96 Oxygen Delivery Method Room Air Room Air 02/09/25 22:00 Temperature Temperature Source Pulse Rate 97 Respiratory Rate 25 H Respiratory Effort Respiratory Depth Respiratory Pattern Blood Pressure 137/57 H Blood Pressure Mean 83 Pulse Ox 92 Oxygen Delivery Method Room Air MDM MDM MDM Narrative Medical decision making narrative: 79-year-old female recent URI with COPD clinically and historically seems like a COPD exacerbation. Cardiac workup with chest x-ray. She will be treated with DuoNeb and albuterol aerosols. 125 of IV Solu-Medrol. For suspected acute exacerbation of COPD. Rule out cardiac event. Rule out pneumonia. She also be given p.o. Zithromax due to the sputum production. Repeat exam at around 11 PM patient doing well. On room air sitting in bed her pulse ox is 96% currently when the nurses went to ambulate her it dropped into the high 80s. She became more dyspneic. She is comfortable being admitted for further therapy. I the hospitalist on page. History & Record Review Discussion w/independent historian: Patient Additional record(s) reviewed:: Prior outpatient record, Prior ED visit, Prior labs and No prior records Lab Data Attestation: I reviewed the patient's lab results. Lab results narrative: CBC shows a white count of 12.5. H&H of 15 and 43. Platelets 368. Sodium 128. Gap 14. BUN and creatinine of 4 and 0.4. Glucose 110. Troponin 11. 2-hour troponin is 16. Labs: Laboratory Results - last 24 hr 02/09/25 02/09/25 18:30 20:22 WBC 12.5 H RBC 5.01 Hgb 15.0 Hct 43.7 MCV 87.2 MCH 29.9 MCHC 34.3 RDW Std Deviation 43.1 RDW Coeff of Tri 13.4 Plt Count 368 MPV 9.5 Immature Gran % (Auto) 0.400 Neut % (Auto) 68.0 Lymph % (Auto) 18.9 L [place] % (Auto) 10.5 H Eos % (Auto) 1.6 Baso % (Auto) 0.6 Absolute Neuts (auto) 8.5 H Absolute Lymphs (auto) 2.36 Nucleated RBC % 0 Sodium 128 L Potassium 4.3 Chloride 88 L Carbon Dioxide 25.3 Anion Gap 14 BUN 4 Creatinine 0.41 L Estim Creat Clear Calc 40.33 L Est GFR (MDRD) Non-Af 100 BUN/Creatinine Ratio 10.0 Glucose 110 H Calcium 9.4 Troponin T High Sens 11 Troponin T Hi Sens 2 Hr 16 H Radiography Chest X-Ray - ED: 2 View, Read by ED Physician, Read by Radiologist, Heart, Lungs, Mediastinum, Bony Structures, No Acute Disease and Chronic Changes Diagnostic Testing: Clinical Impression(s) from Imaging Studies Chest X-Ray 02/09/25 18:35 IMPRESSION: 1. Opacity in the posterior lungs on the lateral view could represent infection or atelectasis. Alternatively, this may be artifactual due to obliquity of patient positioning. 2. Diffusely prominent interstitial markings could represent infection/inflammation or pulmonary edema. Reading Location: [facility] Chest x-ray, 2 views, AP and lateral, turbid by myself and radiologist. Shows chronic changes no acute process. Consistent with COPD. No pneumonia. No effusion. Rhythm Strip Rhythm Strip: Sinus Rhythm Rate: 78 Ectopy: None EKG Initial EKG: Attestation: I personally reviewed and interpreted this EKG as follows: Interpretation: Sinus Rhythm and No Acute Injury Pattern Comments: Normal sinus rhythm rate of 78 no acute signs of OH or ischemia. No dysrhythmia. Discharge Plan Dx/Rx/DC Orders Clinical Impression: Acute exacerbation of chronic obstructive pulmonary disease, Hypoxia Disposition Disposition: Acute Care Hospital [facility]
[2025-02-09] MEDS: Albuterol 2.5 MG/3 ML VIAL.NEB. INHALATION (19:31)
[2025-02-09] MEDS: Azithromycin 500 MG in 0.9% Normal Saline (250mL Bag) 250 ML 250 MG IV (19:55)
[2025-02-09 20:53] LABS: Troponin T High Sens 2 HR 16 ng/L (<=14)
--- NOTE | 2025-02-09 22:38 | EKG12_ITS ---
Test Reason : SOB
--- NOTE | 2025-02-09 23:02 | PCM.HP.STD ---
HPI - General General Date of Admission: 02/09/25 Date of Service: 02/09/25 Chief Complaint: Dyspnea, wheezing, cough, URI symptoms. HPI Narrative The patient is a 79 y/o F w/ PMHx: Heavy EtOH use, Severe protein calorie malnutrition, Hx Lung CA unclear type status post focal resection per her reports in remission, Anxiety, COPD, Tobacco use who presents to the [facility] ED on 02/09/2025 with onset over the last 48 hours progressively worsening dyspnea more so with exertion with wheezing in addition to coughing with URI over the last week with mild yellow sputum, congestion, rhinorrhea with no specific fevers or chills but given worsening dyspnea and wheezing prompted eventual ED evaluation be cautious. Workup in the ED included T97, heart rate 120, BP 151/117, respiratory rate 26, 96% on room air with most recent repeat vitals heart rate 97, BP 137/57, respiratory rate 25, 92% on room air, CBC with WC 12.5, hemoglobin 15, platelets 368 with left shift, BMP with sodium 128, chloride 88, BUN/creatinine 4/0.41, GFR 100, glucose 100, troponin initial 11, repeat delta 16, chest x-ray with opacity in the posterior lungs in the lateral view possibly infectious versus atelectasis versus artifact due to oblique patient positioning, diffusely prominent interstitial markings public relations representative of possibly infection/inflammatory. In the ED patient ministered Solu-Medrol 125 mg IV x 1, albuterol, DuoNeb therapy and azithromycin 500 mg IV x 1. [facility] Medical History Chronic hyponatremia Heavy alcohol use Severe protein-calorie malnutrition History of lung cancer Tobacco use COPD (chronic obstructive pulmonary disease) Anxiety Home Medications ?Medication ?Instructions ?Recorded ?Last Taken ?Type fluticasone fur. 200 mcg-umeclid 1 ea inhalation DAILY 02/09/25 Unknown History 62.5 mcg-vilant 25 mcg inhalat.powder (Trelegy Ellipta) lorazepam 0.5 mg tablet 0.5 mg PO BID PRN PRN anxiety 02/09/25 Unknown History Allergy/AdvReac Type Severity Reaction Status Date / Time fentanyl Allergy Intermediate Rash Verified 02/09/25 18:23 Family History (Updated 02/09/25 @ 23:[address] Zeinab Ramires MD) Mother Hemorrhagic shock Unclear exact situation but patient reports following significant vaginal bleeding event approximately 6 months following of a child. Father Heart disease Hypertension Surgical History (Updated 02/09/25 @ 23:[address] Zeinab Ramires MD) History of tonsillectomy and adenoidectomy History of lung surgery Social History (Updated 02/09/25 @ 23:[address] Zeinab Ramires MD) household members: none Smoking Status: Current every day smoker tobacco type: cigarettes Smoking packs per day: 0.5 Smoking cigarettes per day: 10.0 alcohol intake: current alcohol intake frequency: 3 or more drinks per day Alcohol type: beer details: 3-5 beers daily. substance use type: does not use ROS ROS Narrative Admission Review of Systems: CONSTITUTIONAL: No weight loss, fever, chills, + weakness or fatigue. HEENT: + Mild congestion, rhinorrhea. Eyes: No visual loss, blurred vision, double vision or yellow sclerae. Ears, Nose, Throat: No hearing loss, sneezing, sore throat. SKIN: No rash or itching, lesions, wounds except + occasional ecchymoses, abrasion. CARDIOVASCULAR: No chest pain, chest pressure or chest discomfort, palpitations, edema, orthopnea, syncopal events. RESPIRATORY: + Dyspnea, wheezing, mildly productive cough. No hemoptysis. GASTROINTESTINAL: + Anorexia. No nausea, vomiting or diarrhea, abdominal pain, melena, BRBPR. GENITOURINARY: No dysuria, frequency, urgency or retention. NEUROLOGICAL: No headache, dizziness, syncope, paralysis, ataxia, numbness or tingling in the extremities, focal weakness, change in bowel or bladder control, seizure. MUSCULOSKELETAL: + muscle, back pain, joint pain or stiffness. HEMATOLOGIC: No anemia, bleeding or bruising. LYMPHATICS: No enlarged nodes. No history of splenectomy. PSYCHIATRIC: + History of anxiety. ENDOCRINOLOGIC: No reports of sweating, cold or heat intolerance. No polyuria or polydipsia. ALLERGIES: No history of asthma, hives, eczema or rhinitis. Vital Signs Vital Signs Vital Signs: 02/09/25 18:23 02/09/25 19:34 02/09/25 20:05 Temperature 97 F L Temperature Source Temporal Pulse Rate 120 H 90 Respiratory Rate 26 H 18 Respiratory Effort Respiratory Depth Respiratory Pattern Normal Blood Pressure 151/117 H Blood Pressure Mean 128 Pulse Ox 96 Oxygen Delivery Method Room Air Room Air 02/09/25 20:05 02/09/25 20:05 02/09/25 20:23 Temperature Temperature Source Pulse Rate 97 Respiratory Rate 20 H 14 Respiratory Effort Short of Breath Respiratory Depth Shallow Respiratory Pattern Tachypnea Blood Pressure 151/129 H Blood Pressure Mean 136 Pulse Ox 98 96 Oxygen Delivery Method Room Air Room Air 02/09/25 22:00 Temperature Temperature Source Pulse Rate 97 Respiratory Rate 25 H Respiratory Effort Respiratory Depth Respiratory Pattern Blood Pressure 137/57 H Blood Pressure Mean 83 Pulse Ox 92 Oxygen Delivery Method Room Air Weight Weight: 98 lb 12.273 oz Body Mass Index (BMI) 15.9 Physical Exam Narrative Physical Examination: General: Awake, alert, oriented x 3 and cooperative, seated upright in the ED bed, fatigued, cachectic appearing. Skin: Normal color, normal turgor, no icterus, no cyanosis except occasional stage ecchymoses, abrasion. HEENT: AT/NC, EOMI, PERRLA, mildly dry MM, no carotid bruits or JVD noted. Lungs: Severely diffusely diminished, greater bases, mildly increased respiratory rate but no severe distress, diffuse soft end expiratory wheezing, no marked rales or rhonchi. Heart: Mildly tachycardic with regular rhythm; no gallop, rub audible. Abdomen: Soft, thin cachectic habitus NTTP, ND, normal BS, no markedly appreciated HSM. Extremities: No cyanosis, no clubbing, mild bilateral ankle edema. Neurological: Patient awake, alert, oriented as noted, cognitive function intact; pupils equally reactive to light and accommodation, cranial nerves grossly normal, moving all 4 extremities, no focal deficits, strength moderately globally decreased. Psychiatric: Affect appears flat, fatigued, no acute evidence of depressive or anxiety feelings but does have underlying anxiety history. Results Lab / Micro Data 02/09/25 18:30 02/09/25 18:30 Labs: Laboratory Results - last 24 hr 02/09/25 18:30: WBC 12.5 H, RBC 5.01, Hgb 15.0, Hct 43.7, MCV 87.2, MCH 29.9, MCHC 34.3, RDW Std Deviation 43.1, RDW Coeff of Tri 13.4, Plt Count 368, MPV 9.5, Immature Gran % (Auto) 0.400, Neut % (Auto) 68.0, Lymph % (Auto) 18.9 L, [place] % (Auto) 10.5 H, Eos % (Auto) 1.6, Baso % (Auto) 0.6, Absolute Neuts (auto) 8.5 H, Absolute Lymphs (auto) 2.36, Nucleated RBC % 0, Sodium 128 L, Potassium 4.3, Chloride 88 L, Carbon Dioxide 25.3, Anion Gap 14, BUN 4, Creatinine 0.41 L, Estim Creat Clear Calc 40.33 L, Est GFR (MDRD) Non-Af 100, BUN/Creatinine Ratio 10.0, Glucose 110 H, Calcium 9.4, Troponin T High Sens 11 02/09/25 20:22: Troponin T Hi Sens 2 Hr 16 H Rhythm Strip Rhythm Strip: Sinus Rhythm Rate: 78 Ectopy: None Imaging Radiology Impression Chest X-Ray 02/09/25 18:35 IMPRESSION: 1. Opacity in the posterior lungs on the lateral view could represent infection or atelectasis. Alternatively, this may be artifactual due to obliquity of patient positioning. 2. Diffusely prominent interstitial markings could represent infection/inflammation or pulmonary edema. Reading Location: [id number] Assessment & Plan Assessment/Plan (1) Acute exacerbation of chronic obstructive pulmonary disease: PLAN: Plan The patient is a 79 y/o F w/ PMHx: Heavy EtOH use, Severe protein calorie malnutrition, Hx Lung CA unclear type status post focal resection per her reports in remission, Anxiety, COPD, Tobacco use who presents to the [facility] ED on 02/09/2025 with onset over the last 48 hours progressively worsening dyspnea more so with exertion with wheezing in addition to coughing with URI over the last week with mildly yellow sputum, congestion, rhinorrhea with no specific fevers or chills but given worsening dyspnea and wheezing prompted eventual ED evaluation be cautious. #1. Acute on Chronic COPD exacerbation: Will admit to MS, if oxygen necessary will maintain on oxygen with wean as tolerated to room air as able, will maintain on ATC duonebs, PRN albuterol, IV methylprednisolone, will continue IV azithromycin, HOB, IS parameters, will obtain sputum Cx, respiratory viral panel, procalcitonin. #2. Acute on chronic hyponatremia, hyperchloremia, suspect hypovolemic component but likely also secondary to heavy alcohol abuse/beer potomania: Admission sodium 128, chloride 88, baseline primarily low 130 range, will judiciously hydrate, encouraged alcohol reduction as noted below, will repeat CMP in AM. #3. Elevated BP without hypertensive diagnosis: BP upon presentation elevated above goal, potentially related with acute presentation, continue to monitor and add regimen as needed, as needed IV hydralazine in the interim. #4. EtOH Abuse: Patient notes routine consumption of 3-5 beers per day. Will maintain on CIWA protocol, MVI, thiamine and folic acid. Magnesium and phosphorus level requested. Strongly encouraged alcohol reduction. #5. Severe protein calorie malnutrition: Evidenced by significant muscle/fat loss/wasting with reduced BMI, nutrition consulted for recommendations. #6. Tobacco Abuse: Encouraged cessation, inpatient consultation per RT, NR if desired. #7. History of lung cancer: Unclear specific type or location, reportedly had localized resection with no chemotherapy or radiation is considered in remission, encourage follow-up as previously arranged. #8. Anxiety: Will continue patient home anxiolytic regimen. Hold for sedation as needed. #9. DVT prophylaxis: Lovenox. #10. CODE status: Patient does not have healthcare power of contract attorney or living will but her eldest son would be her medical decision-maker if necessary. Discussed CODE status at length including difference between FULL code, DNR-CCA and DNR-CC status. Following discussions about the differences in these status, requested Full Code status. Charges/Coding Visit Charges Inpatient E&M: 35575 Init Hosp L3
[2025-02-09 23:04] LABS: Troponin T High Sens 4 HR 17 ng/L (<=14)
[2025-02-10] VITALS (15 sets, daily range): BP systolic 101–141; BP diastolic 49–87; PULSE 66–106; RESP 16–24; TEMP 36.1–37; O2SAT 84–97; BMI 15.2; BMI 14.8
[2025-02-10] MEDS: 0.9% Normal Saline (1000mL) 1,000 ML 100 ML IV (01:22)
[2025-02-10 01:50] LABS: Procalcitonin 0.03 ng/mL (<=0.10)
[2025-02-10] MEDS: 0.9% Saline Lock 10 ML Syringe IV ×4 (01:50→21:31)
[2025-02-10 06:30] LABS: Hematocrit 38.6 % (37-47); Hemoglobin 13.3 g/dL (12.0-15.0); Immature Granulocytes Count 0.050 X10^3/uL (0.0-0.0); Mean Corp Hgb Conc 34.5 g/dL (32-36); Mean Corpuscular Volume 87.1 fL (81-99); Mean Platelet Vol. 10.2 fl (6.2-12.0); NRBC Flagged by Analyzer 0 % (0-5); POSITIVE DIFFERENTIAL YES; Platelet Count 305 K/mm3 (150-450); RBC Distribution Width CV 13.4 % (11.6-14.6); RBC Distribution Width SD 42.7 fl (35.1-43.9); Red Blood Count 4.43 M/mm3 (4.2-5.4); White Blood Count 7.9 K/mm3 (4.4-11.0)
[2025-02-10 07:01] LABS: AST(SGOT) 14 U/L (<=31); Alanine Aminotransfer ALT/SGPT 7 U/L (<=34); Albumin, Serum 3.7 g/dL (3.4-4.8); Alkaline Phosphatase 88 U/L (35-104); Anion Gap 9 (5-15); BUN 6 mg/dL (4-19); BUN/Creat Ratio 14.8 RATIO (10-20); Calcium,Total 8.8 mg/dL (7.6-11.0); Carbon Dioxide 25.7 mmol/L (21.0-32.0); Chloride 94 mmol/L (98-108); Estimated Creatinine Clearance 38.44 ml/min (50-250); Globulin 2.4 g/dL (2.2-4.2); Glucose 204 mg/dL (70-99); Potassium 4.6 mmol/L (3.3-5.1)
[2025-02-10] MEDS: Nicotine (PBKC) 14 MG Patch TD (07:29)
[2025-02-10] MEDS: Ensure Plus High Protein 120 ML LIQUID PO ×4 (08:10→21:31)
--- NOTE | 2025-02-10 09:29 | PN.HOSP_ITS ---
Reason for Visit
--- NOTE | 2025-02-10 09:29 | PCM.PN.HOSP ---
Reason for Visit Chief Complaint: Dyspnea, wheezing, cough, URI symptoms. Subjective Subjective Still feeling short of breath but much better than she was. Has a cough with mostly clear or white sputum, no leg swelling Objective Data Objective Data Vital Signs: Vital Signs Temp Pulse Resp BP Pulse Ox O2 Del Method 98.1 F 98 18 141/71 H 95 Room Air 02/10/25 08:00 02/10/25 08:00 02/10/25 08:00 02/10/25 08:00 02/10/25 08:00 02/10/25 08:00 Oxygen Delivery Method Room Air Weight: 42.7 kg Body Mass Index (BMI) 14.8 Intake & Output: Intake and Output for Last 24 Hours 02/08/25 02/09/25 02/10/25 23:59 22:59 23:59 Intake Total 250 / 250 Balance 250 / 250 Lab / Micro Data 02/10/25 05:16 02/10/25 05:16 Labs: Laboratory Results - last 24 hr 02/09/25 18:30: WBC 12.5 H, RBC 5.01, Hgb 15.0, Hct 43.7, MCV 87.2, MCH 29.9, MCHC 34.3, RDW Std Deviation 43.1, RDW Coeff of Tri 13.4, Plt Count 368, MPV 9.5, Immature Gran % (Auto) 0.400, Neut % (Auto) 68.0, Lymph % (Auto) 18.9 L, [place] % (Auto) 10.5 H, Eos % (Auto) 1.6, Baso % (Auto) 0.6, Absolute Neuts (auto) 8.5 H, Absolute Lymphs (auto) 2.36, Nucleated RBC % 0, Sodium 128 L, Potassium 4.3, Chloride 88 L, Carbon Dioxide 25.3, Anion Gap 14, BUN 4, Creatinine 0.41 L, Estim Creat Clear Calc 40.33 L, Est GFR (MDRD) Non-Af 100, BUN/Creatinine Ratio 10.0, Glucose 110 H, Calcium 9.4, Troponin T High Sens 11 02/09/25 20:22: Troponin T Hi Sens 2 Hr 16 H 02/09/25 22:40: Troponin T Hi Sens 4Hr 17 H, Procalcitonin 0.03 02/10/25 05:16: WBC 7.9, RBC 4.43, Hgb 13.3, Hct 38.6, MCV 87.1, MCH 30.0, MCHC 34.5, RDW Std Deviation 42.7, RDW Coeff of Tri 13.4, Plt Count 305, MPV 10.2, Immature Gran % (Auto) 0.600, Neut % (Auto) 90.1 H, Lymph % (Auto) 6.1 L, [place] % (Auto) 2.9, Eos % (Auto) 0.0, Baso % (Auto) 0.3, Absolute Neuts (auto) 7.1, Absolute Lymphs (auto) 0.48 L, Nucleated RBC % 0, Sodium 129 L, Potassium 4.6, Chloride 94 L, Carbon Dioxide 25.7, Anion Gap 9, BUN 6, Creatinine 0.44 L, Estim Creat Clear Calc 38.44 L, Est GFR (MDRD) Non-Af 99, BUN/Creatinine Ratio 14.8, Glucose 204 H, Calcium 8.8, Total Bilirubin 0.38, AST 14, ALT 7, Alkaline Phosphatase 88, Total Protein 6.1, Albumin 3.7, Globulin 2.4, Albumin/Globulin Ratio 1.6 Micro: Microbiology 02/10/25 01:22 Mucosa - Nasopharyngeal Respiratory Panel (PCR) - Final Radiography Diagnostic Testing: Radiology Impression Chest X-Ray 02/09/25 18:35 IMPRESSION: 1. Opacity in the posterior lungs on the lateral view could represent infection or atelectasis. Alternatively, this may be artifactual due to obliquity of patient positioning. 2. Diffusely prominent interstitial markings could represent infection/inflammation or pulmonary edema. Reading Location: [id number] Rhythm Strip Rhythm Strip: Sinus Rhythm Rate: 78 Ectopy: None Physical Exam Narrative General: Alert, oriented, no apparent distress HEENT: Atraumatic, normocephalic Eyes: Anicteric, normal conjunctiva, extraocular movements grossly intact Neck: Supple Respiratory: Does have slight increased respiratory effort, diminished bilaterally but no crackles or wheezes appreciated Cardiovascular: Regular rate and rhythm GI: Soft, nontender, nondistended Extremities: No edema Musculoskeletal: Moving all extremities Neuro: No overt focal neurological deficits Skin: No rashes appreciated Psych: Cooperative Assessment & Plan Assessment/Plan (1) Acute exacerbation of chronic obstructive pulmonary disease: PLAN: Plan 79-year-old female history of COPD with prior lung cancer resection not on home O2 and anxiety presented [facility] ED 02/09/2025 due to shortness of breath and coughing. She recently had URI over this past week and yesterday had increased wheezing and shortness of breath and increased clear sputum. In the ED temp 97, heart rate initially 120 with a respiratory rate of 26, blood pressure 151/117 and pulse ox 96% on room air. Labs showed white count of 12.5, hemoglobin of 15, sodium of 128, troponin of 11 with a repeat of 16. Chest x-ray with opacity in posterior lungs on the lateral view that could represent infection or atelectasis versus artifact as well as diffusely prominent interstitial markings possible infection or inflammation or pulmonary edema. It was felt patient had COPD exacerbation and was given Solu-Medrol, nebs, and azithromycin and hospitalist contacted for admission. #Acute exacerbation of COPD -Admit to floor, continuous O2 monitoring -Chest x-ray: Queried opacity versus artifact but patient afebrile and without any purulent sputum with normal Pro-Nikita, symptoms most consistent with COPD - Respiratory panel obtained -Sputum culture obtained and sent down -O2 in place, wean as tolerated -IV methylprednisone -Scheduled DuoNebs -Albuterol prn -Antibiotics: Azithromycin -Incentive spirometer -Mucinex # Chronic hyponatremia -Sodium 129, yesterday 128 and previous 131/132 -Patient apparently does have routine alcohol use so may be a component of beer potomania, if this remains stable can consider outpatient follow-up # Alcohol use - Reportedly drinks 3-5 beers per day, patient being monitored on CIWA with thiamine and folic acid ordered -Advise cessation #Tobacco use -Advise cessation -Nicotine replacement available if desired #Depression/anxiety -Continue home medications #DVT ppx: Lovenox subcu Juli Rios MD Charges/Coding Visit Charges Inpatient E&M: 98697 Subs Hosp L2
--- NOTE | 2025-02-10 14:55 | CASEMGMT ---
RIVERA Met with patient to complete RIVERA form. RIVERA form and its content were verbally explained and patient's questions were answered to the best of my ability.? Patient voiced understanding and signed RIVERA form.? Patient provided a copy of signed RIVERA form and original placed in patient's chart.? Patient had no further questions. Lucrecia Crowe, Discharge Planning Asst
--- NOTE | 2025-02-10 14:58 | CASEMGMT ---
ARMANDO KIRBY Assessment: Face to Face with pt for initial transition planning/care coordination assessment. ARMANDO KIRBY introduced self and role at [facility], pt voices understanding and consents to assessment. Pt is A&O x4 and answers all questions appropriately at this time. Pt lying in bed in no distress on RA. Care providers, pharmacy, and demographics verified/updated. Admitting Dx: COPD exac Strata Score: 1 PCP:Leilani Specialists:Denies, states is determining if pt needs specialists or if he will manage. Pt recently lived in [place] and had a lung specialist. [facility] Insurance: [facility] Independent IP Advantage Prescription Benefit: yes LNOK: Hakeem Levine, son; Lai Levine, son Living Arrangements: Pt lives alone in a single story home with 1+1 step to enter. Pt reports she is I in ADL/IADLs and denies concerns at home. Pt states on Fridays she picks her dtr up and they grocery shop together then her dtr stays until Monday with her. Pt denies concerns at home. Transportation: Pt drives self and denies concerns with transportation. DME:Denies, pt states she had a pox but lost it in the move. Pt states she can afford one and knows where to purchase one. HHC/SNF: Pt had HHC in the past when she lived in [place] but cannot recall the name of the agency. Pt denies SNF stays. Pt states no concerns with going home at time of dc. Pt had an amb pox today and did not qualify for home oxygen. Pt states she smokes a half pack of cigarettes per day and this is cut down from what she usually has done. She states that she has the nicotine patch on and plans to continue this at [place]. Pt states she drinks 2 beers per day and denies need for cessation resources for this. Pt states no further concerns/needs. CM to follow. Advised pt to ask CM if any further questions/concerns/needs arise, voices understanding. Pt Goal: Home Plan: Home Tomasa ROBERTS CM
[2025-02-10] MEDS: MELATONIN 3 MG TABLET PO (23:33)
[2025-02-11 03:41] VITALS: BMI 15.4
[2025-02-11 04:11] VITALS: BP 118/51; PULSE 83; RESP 16; TEMP 36.5; O2SAT 99
[2025-02-11 07:15] VITALS: PULSE 91; RESP 18
[2025-02-11 07:42] LABS: Hematocrit 39.7 % (37-47); Hemoglobin 13.4 g/dL (12.0-15.0); Immature Granulocytes Count 0.200 X10^3/uL (0.0-0.0); Mean Corp Hgb Conc 33.8 g/dL (32-36); Mean Corpuscular Volume 88.4 fL (81-99); Mean Platelet Vol. 9.8 fl (6.2-12.0); NRBC Flagged by Analyzer 0 % (0-5); Platelet Count 375 K/mm3 (150-450); RBC Distribution Width CV 13.9 % (11.6-14.6); RBC Distribution Width SD 44.6 fl (35.1-43.9); Red Blood Count 4.49 M/mm3 (4.2-5.4); White Blood Count 19.1 K/mm3 (4.4-11.0)
[2025-02-11] MEDS: Nicotine (PBKC) 14 MG Patch TD (07:50)
[2025-02-11] MEDS: Ensure Plus High Protein 120 ML LIQUID PO (07:50)
[2025-02-11 08:00] VITALS: BP 126/57; PULSE 88; RESP 18; TEMP 36.5; O2SAT 95
[2025-02-11 08:11] LABS: Anion Gap 9 (5-15); BUN 10 mg/dL (4-19); BUN/Creat Ratio 27.5 RATIO (10-20); Calcium,Total 9.0 mg/dL (7.6-11.0); Carbon Dioxide 26.6 mmol/L (21.0-32.0); Chloride 96 mmol/L (98-108); Estimated Creatinine Clearance 40.15 ml/min (50-250); Glucose 135 mg/dL (70-99); Potassium 4.6 mmol/L (3.3-5.1)
[2025-02-11 11:15] VITALS: PULSE 88; RESP 20
--- NOTE | 2025-02-11 13:12 | CASEMGMT ---
Social Work SW met w/pt briefly, to inquire if she would like any resources for her alcohol use. Pt declined, she does not see it as an issue. Pt is dressed and ready to go, and states is waiting to be discharged. SW explained will check w/the RN. SW checked w/pt's nurse, as far as she knows pt is to be d/c today. SW sent a text to the physician to let her know pt is dressed and ready to be discharged. MARIBELL Louie
--- NOTE | 2025-02-11 14:03 | DCINST_ITS ---
Discharge Instructions
--- NOTE | 2025-02-11 14:03 | PCM.DC ---
Discharge Instructions DC O2, CPAP, BIPAP needs Home O2 Discharge instructions: No Dressing / Incision Discharge Activity: - (Increase activity as tolerated) Follow Up Care Test Results: Test results from this visit will be discussed in further detail at your follow-up appointment, if applicable. Discharge Plan Admission Admit Date/Time: 02/10/25 15:48 Primary Reason for Your Visit: Increased shortness of breath Attending Provider: Juli Rios Primary Care Provider: Mariel Duke Consulting Providers: Zeinab Ramires Instructions Patient Instructions: COPD Controlled Breathing Dc, COPD: Using Inhalers, ED COPD Flare Additional Instructions / Restrictions: DISCHARGE INSTRUCTIONS PLEASE READ *Please take this with you to your next doctors appointment* - You will be discharged on 3 more days of azithromycin for your breathing - A prescription for nebulizer solution will be sent into preferred pharmacy on file, you indicated that you have a nebulizer at home, please use this up to every 4 hours as needed for shortness of breath and wheezing -You will be discharged on a prednisone taper: -60 mg daily x3 days -50mg daily x3 days -40mg daily x3 days -30mg daily x3 days -20mg daily x3 days -10mg daily x3 days -It is very important that you quit smoking moving forward -Please call your primary care provider's office upon discharge to schedule a hospital follow up within 1 week. -For any concerning signs or symptoms please call 911 or proceed to the nearest emergency department Discharge Orders/Prescriptions Prescriptions: New ipratropium-albuterol 0.5 mg-3 mg(2.5 mg base)/3 mL Solution For Nebulization 3 ml inhalation Q4HWA.RT PRN (Reason: Shortness of breath/weezing) Qty: 180 0RF azithromycin 250 mg Tablet 500 mg PO Q24 3 Days Qty: 6 0RF Rx Instructions: Start 02/12/25 prednisone 20 mg Tablet See Taper PO BREAKFAST Qty: 32 0RF Taper: Prednisone Taper 60 mg WITH BREAKFAST for 3 Days and 0 Hour 50 mg WITH BREAKFAST for 3 Days and 0 Hour 40 mg WITH BREAKFAST for 3 Days and 0 Hour 30 mg WITH BREAKFAST for 3 Days and 0 Hour 20 mg WITH BREAKFAST for 3 Days and 0 Hour 10 mg WITH BREAKFAST for 3 Days and 0 Hour Continued lorazepam 0.5 mg tablet 0.5 mg PO BID PRN PRN (Reason: anxiety) Trelegy Ellipta 200-62.5-25 mcg blister with device 1 ea INHALATION DAILY Referrals / Follow Up: Mariel Duke MD [Primary Care Provider, Family Practice] - Within 1 Week Disposition Disposition (needs filled in before D/C Order can be placed): Home, Self Care
[2025-02-11 14:05] VITALS: BP 131/59; PULSE 109; RESP 18; TEMP 36.6; O2SAT 95
--- NOTE | 2025-02-11 14:12 | PCM.DC.SUM ---
Providers Date of Admission: 02/10/25 Date of Discharge: 02/12/25 Primary Care Physician: Mariel Duke MD Reason For Visit: COPD EXACERBATION Diagnosis Discharge Diagnosis (1) Acute exacerbation of chronic obstructive pulmonary disease: Status: Chronic Code(s): J44.1 - Chronic obstructive pulmonary disease with (acute) exacerbation Plan #Acute exacerbation of COPD # Chronic hyponatremia # Alcohol use #Tobacco use #Depression/anxiety Medications at Discharge Home Medications fluticasone fur. 200 mcg-umeclid 62.5 mcg-vilant 25 mcg inhalat.powder (Trelegy Ellipta) 1 ea inhalation DAILY 02/09/25 lorazepam 0.5 mg tablet 0.5 mg PO BID PRN PRN anxiety 02/09/25 azithromycin 250 mg tablet 500 mg (2 x 250 mg) PO Q24 3 days #6 tabs 02/11/25 ipratropium 0.5 mg-albuterol 3 mg (2.5 mg base)/3 mL nebulization soln 3 ml inhalation Q4HWA.RT PRN Shortness of breath/weezing #180 mL 02/11/25 prednisone 20 mg tablet See Taper PO BREAKFAST #32 tabs 02/11/25 Hospital Course Summary of Care Provided Minutes Spent on Discharge: 27 Hospital Course: 79-year-old female history of COPD with prior lung cancer resection not on home O2 and anxiety presented [facility] ED 02/09/2025 due to shortness of breath and coughing. She recently had URI over this past week and yesterday had increased wheezing and shortness of breath and increased clear sputum. In the ED temp 97, heart rate initially 120 with a respiratory rate of 26, blood pressure 151/117 and pulse ox 96% on room air. Labs showed white count of 12.5, hemoglobin of 15, sodium of 128, troponin of 11 with a repeat of 16. Chest x-ray with opacity in posterior lungs on the lateral view that could represent infection or atelectasis versus artifact as well as diffusely prominent interstitial markings possible infection or inflammation or pulmonary edema. It was felt patient had COPD exacerbation and was given Solu-Medrol, nebs, and azithromycin and hospitalist contacted for admission. Pt improved with steroids and breathing treatments. She was able to ambulate without need for O2 and with improving shortness of breath and felt comfortable discharging home. No new or acute complaints on day of discharge. Discharge instructions as follows: - You will be discharged on 3 more days of azithromycin for your breathing - A prescription for nebulizer solution will be sent into preferred pharmacy on file, you indicated that you have a nebulizer at home, please use this up to every 4 hours as needed for shortness of breath and wheezing -You will be discharged on a prednisone taper: -60 mg daily x3 days -50mg daily x3 days -40mg daily x3 days -30mg daily x3 days -20mg daily x3 days -10mg daily x3 days -It is very important that you quit smoking moving forward -Please call your primary care provider's office upon discharge to schedule a hospital follow up within 1 week. -For any concerning signs or symptoms please call 911 or proceed to the nearest emergency department Physical Exam Narrative General: Alert, oriented, no apparent distress HEENT: Atraumatic, normocephalic Eyes: Anicteric, normal conjunctiva, extraocular movements grossly intact Neck: Supple Respiratory: Transmitted upper airway sounds with no wheezes Cardiovascular: Regular rate and rhythm GI: Soft, nontender, nondistended Extremities: No edema Musculoskeletal: Moving all extremities Neuro: No overt focal neurological deficits Skin: No rashes appreciated Psych: Cooperative Medical Records Data Medical Nutrition Assessment Dietitian: Malnutrition Criteria Met Start: 02/10/25 12:20 Freq: Status: Active Protocol: Document 02/10/25 12:21 SLA (Rec: 02/10/25 12:21 SLA [id number]) Nutrition Malnutrition Evidence of Yes Malnutrition Exists Malnutrition (severe Chronic ): Evidenced By Suboptimal Energy Intake (Severe),Weight Loss (Severe), Physical Changes (Severe) Clinical Problem Chronic Disease or Condition Related Malnutrition Etiology related to increased nutritional needs r/t COPD and hx of lung cancer - pt with inadequate energy intake Signs/Symptoms as evidenced by po intake <50-74% of est nutritional needs, ~18% unplanned wt loss and severe fat/muscle loss throughout body x past 6 mo. BMI = 14.7 Status Active Problem Recommendation Dietitian Will continue liberal regular diet - add fortified Recommendations/ foods as able for increased nutrition if consumed Changes Continue 4 oz ensure plus high protein 4x/day w/ medpass Continue to follow and monitor for changes in pt nutritional status and make additional rec as indicated . Weight / BMI Weight Weight: 44.6 kg Body Mass Index (BMI) 15.4 ABG / Lab / Microbiology Data 02/11/25 07:13 02/11/25 07:13 Laboratory: Laboratory Results - last 24 hr 02/11/25 07:13: Sodium 132 L, Potassium 4.6, Chloride 96 L, Carbon Dioxide 26.6, Anion Gap 9, BUN 10, Creatinine 0.36 L, Estim Creat Clear Calc 40.15 L, Est GFR (MDRD) Non-Af 103, BUN/Creatinine Ratio 27.5 H, Glucose 135 H, Calcium 9.0 Microbiology: Microbiology 02/10/25 07:30 Sputum, Expectorated/Coughed Gram Stain - Final 02/10/25 01:22 Mucosa - Nasopharyngeal Respiratory Panel (PCR) - Final D/C Instructions DC O2, CPAP, BIPAP Needs Home O2 Discharge instructions: No Meaningful Use Info Meaningful Use Meaningful Use Diagnoses (Choose all that apply): None applicable Discharge Plan Admission Admit Date/Time: 02/10/25 15:48 Primary Reason for Your Visit: Increased shortness of breath Attending Provider: Juli Rios Primary Care Provider: Mariel Duke Consulting Providers: Zeinab Ramires Instructions Patient Instructions: COPD Controlled Breathing Dc, COPD: Using Inhalers, ED COPD Flare Additional Instructions / Restrictions: DISCHARGE INSTRUCTIONS PLEASE READ *Please take this with you to your next doctors appointment* - You will be discharged on 3 more days of azithromycin for your breathing - A prescription for nebulizer solution will be sent into preferred pharmacy on file, you indicated that you have a nebulizer at home, please use this up to every 4 hours as needed for shortness of breath and wheezing -You will be discharged on a prednisone taper: -60 mg daily x3 days -50mg daily x3 days -40mg daily x3 days -30mg daily x3 days -20mg daily x3 days -10mg daily x3 days -It is very important that you quit smoking moving forward -Please call your primary care provider's office upon discharge to schedule a hospital follow up within 1 week. -For any concerning signs or symptoms please call 911 or proceed to the nearest emergency department Discharge Orders/Prescriptions Prescriptions: New ipratropium-albuterol 0.5 mg-3 mg(2.5 mg base)/3 mL Solution For Nebulization 3 ml inhalation Q4HWA.RT PRN (Reason: Shortness of breath/weezing) Qty: 180 0RF azithromycin 250 mg Tablet 500 mg PO Q24 3 Days Qty: 6 0RF Rx Instructions: Start 02/12/25 prednisone 20 mg Tablet See Taper PO BREAKFAST Qty: 32 0RF Taper: Prednisone Taper 60 mg WITH BREAKFAST for 3 Days and 0 Hour 50 mg WITH BREAKFAST for 3 Days and 0 Hour 40 mg WITH BREAKFAST for 3 Days and 0 Hour 30 mg WITH BREAKFAST for 3 Days and 0 Hour 20 mg WITH BREAKFAST for 3 Days and 0 Hour 10 mg WITH BREAKFAST for 3 Days and 0 Hour Continued lorazepam 0.5 mg tablet 0.5 mg PO BID PRN PRN (Reason: anxiety) Trelegy Ellipta 200-62.5-25 mcg blister with device 1 ea INHALATION DAILY Referrals / Follow Up: Mariel Duke MD [Primary Care Provider, Family Practice] - Within 1 Week Disposition Disposition (needs filled in before D/C Order can be placed): Home, Self Care Charges/Coding Visit Charges Inpatient E&M: 67383 Disch Hosp
--- NOTE | 2025-02-11 14:33 | PHA.DC_ITS ---
Pharmacy DC Med Rec Counseling
--- NOTE | 2025-02-11 14:33 | PHA.DC.MC.R ---
Pharmacy [facility] Counseling Pharmacy Service has performed discharge medication reconciliation and counseling for this patient. The patient's discharge medication list was reviewed for discrepancies and discrepancies were resolved. The patient was counseled on the following discharge medications and changes in medications for homegoing were reviewed. The Reason for Use, instructions for use, and potential side effects were reviewed for all new medications. The patient's questions regarding all of their medications were answered. 1. Prednisone taper 2. Azithromycin 500 mg PO daily x 3 days 3. Ipratropium/albuterol 3 mL inhalation via nebulization Q4H PRN The patient was able to verbally demonstrate an understanding of their discharge medications. Medications at Discharge Home Medications fluticasone fur. 200 mcg-umeclid 62.5 mcg-vilant 25 mcg inhalat.powder (Trelegy Ellipta) 1 ea inhalation DAILY 02/09/25 lorazepam 0.5 mg tablet 0.5 mg PO BID PRN PRN anxiety 02/09/25 azithromycin 250 mg tablet 500 mg (2 x 250 mg) PO Q24 3 days #6 tabs 02/11/25 ipratropium 0.5 mg-albuterol 3 mg (2.5 mg base)/3 mL nebulization soln 3 ml inhalation Q4HWA.RT PRN Shortness of breath/weezing #180 mL 02/11/25 prednisone 20 mg tablet See Taper PO BREAKFAST #32 tabs 02/11/25
== END 2025-02-11 14:43 | disposition home or self-care (01) | DRG 190 ==
LOC: ED 23:15 → MS3 02-10 07:06
PROVIDERS: Admitting Provider Family Medicine; Emergency Provider Emergency Medicine; PCP Family Medicine; Visit Provider Internal Medicine
DX: J44.1 Chronic obstructive pulmonary disease with (acute) exacerbation (principal); E43 Unspecified severe protein-calorie malnutrition; E87.1 Hypo-osmolality and hyponatremia; Z68.1 Body mass index [BMI] 19.9 or less, adult; F10.10 Alcohol abuse, uncomplicated; F32.A Depression, unspecified; F17.210 Nicotine dependence, cigarettes, uncomplicated; Y90.9 Presence of alcohol in blood, level not specified; R03.0 Elevated blood-pressure reading, without diagnosis of hypertension; Z90.2 Acquired absence of lung [part of]; Z79.899 Other long term (current) drug therapy; Z85.118 Personal history of other malignant neoplasm of bronchus and lung
CPT/HCPCS: 36415; 71046; 80048; 80053; 84145; 84484; 85025; 87070; 87077; 87186; 87205; 87633; 93005; 94640; 94668; 94760; 97802; 99284; A4216

== ENCOUNTER → 2025-04-01 | Outpatient (CLI) | payer MEDICARE, SELFPAY ==
--- NOTE | 2025-04-01 16:29 | BD_ITS ---
PROCEDURE: DEXA BONE DENSITY STUDY 04/01/2025 REASON FOR EXAM: F, age 79 y/o . Postmenopausal. TECHNIQUE: Procedure Code: BDDBD Modality: DX Procedure: DEXA BONE DENSITY STUDY COMPARISON: None FINDINGS: BMD and T-SCORES Lumbar spine: 0.719 g/cm2, T-score -3.0 Levels: L1 through L4 Left femoral neck: 0.461 g/cm2, T-score -3.5 Left total hip: 0 point 569 g/cm2, T-score -3.1 Right femoral neck: 0.449 g/cm2, T-score -3.6 Right total hip: 0.564 g/cm2, T-score -3.1 The World Health Organization has defined the following categories based on bone density: Normal bone density: T-score equal to or greater than -1.0 Osteopenia: T-score between -1.0 and -2.5 Osteoporosis: T-score equal to or less than -2.5 FRAX (or Comparable) Fracture Risk Assessment: 10 Year Probability of Fracture: Major Osteoporotic Fracture: 33% Hip Fracture: 23% (Note: FRAX is not to be reported in setting of normal range bone density, osteoporosis on DEXA, known history of osteoporosis, prior osteoporotic hip or vertebral fracture, or for any patient undergoing pharmacological treatment for bone loss.) The National Osteoporosis Foundation (NOF) recommends pharmacological treatment for patients with a FRAX 10-year risk of 3% or higher for a hip fracture, or 20% or higher for a major osteoporotic fracture, to prevent osteoporosis and reduce fracture risk. The patient does meet the pharmacological treatment recommendations for prevention of osteoporosis. BD/Dexa Bone Density Study IMPRESSION: OSTEOPOROSIS. Recommend follow-up in 1 year. Reading Location: [id number]
--- NOTE | 2025-04-01 16:44 | CT_ITS ---
PROCEDURE: LOW DOSE CT LUNG SCREENING 04/01/2025 REASON FOR EXAM: TOBACCO ABUSE STILL SMOKING FOR 63 YEARS TECHNIQUE: Procedure Code: [id number] Modality: CT Procedure: LOW DOSE CT LUNG SCREENING Coronal and Sagittal reconstruction series were provided. One or more dose reduction techniques were used (e.g., Automated exposure control, adjustment of the mA and/or kV according to patient size, use of iterative reconstruction technique). [facility] L[facility] Lung-RADS RAD[facility] DOSE SUMMARY: CTDlvol: 2 mGy DLP: 78 mGycm COMPARISON: None FINDINGS: PULMONARY NODULES: (Only nodules >3mm are reported) Nodules described below are on series 2 unless otherwise specified. Pulmonary Nodules: Bilateral apical scarring, greater on the right, some of which has a nodular appearance. 4 mm nodule along the left major fissure on image 72. 9 mm pleural-based nodule in the left lung base on image 187. Hardware:Unremarkable Lymph Nodes:Unremarkable Heart and Vasculature:Coronary artery calcifications are noted.Atherosclerotic calcifications of the thoracic aorta. Thoracic aorta and pulmonary arteries have normal contours; noncontrast technique limits evaluation. Coronary Artery Calcifications: Present Lungs and Airways: Emphysematous lung changes with scattered areas of parenchymal atelectasis. Pleura:Unremarkable Upper Abdomen:Partially visualized descending aorta aneurysm measuring up to 4.8 cm. Bones: CT/Low Dose CT Lung Screening IMPRESSION: Pulmonary nodules of both lungs measuring up to 9 mm. Coronary artery calcification (CAC) is is present Lung-RADS Category: 4A SUSPICIOUS. RECOMMEND 3 MONTH LDCT; PET/CT MAY BE CONSID ERED IF THERE IS A >=8MM SOLID NODULE OR SOLID COMPONENT. 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 Reading Location: [id number]
--- OUTSIDE RECORDS SUMMARY | 2025-04-01 17:57 | XMS RPT_ITS | CCD ---
Author Organization [facility] CliniSyil Care Team Providers Care Slat Basket Maker Machine Name Role Phone Matias Serna Unavailable MD Matias Serna Primary Care Provider DEWAYNE Garrido Emergency Provider [phone] DO Roman Tinsley Emergency Provider Unavai palomo Malik OFFICE TECHNOLOGY INSTRUCTOR-BC Nicole E Emergency Provider Jaziel Shannon Unavailable MD Matias Serna Primary Care Provider [phone] TREVOR Sheriff Shannon Attending Provider [phone] MD Matias Serna Primary Care Provider YUMIKO Sheriff-Marissa Shannon Attending Provider [phone] Kamron Davidsonal Unavailable MD Matias Serna Primary Care Provider MD Indio Davidson Attending Provider Bullimore, Nicole E Admitting Unavailable Bullimore, Nicole E Attending Unavailable Matias Serna Primary [facility] [place] Unavailable Chaban, Kamal Admitting Unavailable Chaeli, Kamal Attending Unavailable Matias Serna Primary [facility] [place] Unavailable Jaziel, Shannon Admitting Unavailable Jaziel, Shannon Attending Unavailable Matias Serna Primary [facility] [place] Unavailable Jaziel, Shannon Admitting Unavailable Jaziel, Shannon Attending Unavailable Matias Serna Primary [facility] [place] Unavailable Burak Garrido Admitting Unavailable Burak Garrido Attending Unavailable Matias Serna Primary [facility] [place] Unavailable Roman Tnisley Admitting Unavailable Roman Tinsley Attending Unavailable Matias Serna Primary Care Unavailable Mariel Duke MD Primary Care Provider Mariel Duke MD Attending Provider Mariel Duke MD Referring Provider [phone] White, Zeinab L Attending Unavailable Leilani, Chalon Primary Care Unavailable White, Zeinab L Admitting Unavailable Rios, Juli Attending Unavailable White, Zeinab L Consulting Unavailable Rios, Juli Consulting Unavailable White, Zeinab L Consulting Unavailable Rios, Juli Attending Unavailable Leilani, Chalon Primary Care Unavailable White, Zeinab L Admitting Unavailable Rios, Juli Consulting Unavailable Leilani, Chalon Primary Care Unavailable Leilani, Chalon Attending Unavailable Leialni, Chalon Referring Unavailable Leilani, Chalon Primary Care Unavailable Leilani, Landryon Attending Unavailable Leilani, Chalon Referring Unavailable White, Zeinab L Admitting Unavailable Rios, Juli Attending Unavailable White, Zeinab L Consulting Unavailable Leilani, Chalon Primary Care Unavailable Allergies Allergy Classification Reported Allergen(s) Allergy Type Date of Onset Reaction(s) Facility (20 sources) Adhesive Tape Drug allergy [employer] [facility] [employer] Master Other (20 sources) [facility] Drug Allergy 2 Itching, Rash [facility] (2 sources) [facility] Drug Allergy 2 [facility] Repository Medications Current Medications Medication Drug Class(es) Dates Sig (Normalized) Sig (Original) acetaminophen 325 mg / HYDROcodone bitartrate 5 mg oral tablet (5 sources) Opioid Agonist Start: 02-14-2023 take 1 tablet by mouth every four hours as needed for pain Hydrocodone-Aceta minophen 5-325 mg tablet Active 1 {tbl} PO EVERY 4 HOURS NEEDED as needed for Pain 01 09February 14, 2023 Start: 02-14-2023 take 1 tablet by segun th every four hours as needed Hydrocodone-Acetaminophen Active 1 TABLE T PO EVERY 4 HOURS NEEDED 01 09February 14, 2023 [id number] 200 actuat albuterol 0.09 mg/actuat metered dose inhaler (20 sources) beta2-Adrenergic Agonist Start: 04-16-2020 take 1 puff(s) by inhalation every six hours as needed Albuterol Sulfate HFA 108 (90 Base) MCG/ACT 1 puff as needed Inhalation every 6 hours as needed Apr, Active Start: 04-16-2020 take 1 puff(s) by in halation every six hours as needed Albuterol Sulfate HFA 108 (90 Base) MCG/ACT 1 puff as needed Inhalation every 6 hours as needed Apr, Active calcium carbonate 1250 mg oral tablet (20 sources) take 1 tablet by mouth every twenty-four hours Calcium 500 MG 1 tablet with meals Orally Once a day Active famciclovir 500 mg oral tablet (5 sources) Herpes Simplex Virus Nucleoside Analog DNA Polymerase Inhibitor Start: 02-15-20 take 1 tablet by mouth every eight hours Famciclovir 500 mg tablet Active 500 mg PO Q8H 28 10February 14, 2023 1:00am fluticasone (20 sources) Corticosteroid Flonase OTC Acti ve Fluticasone-Umeclid in-Vilanter (20 sources) Anticholinergic, Corticosteroid, beta2-Adrenergic Agonist Start: 10-03-19 Fluticasone-Umecli din-Vilanter (Trelegy Ellipta) 100-62.5-25 mcg blister with device Active 1 INH INHALATION Daily October 01, 2021 11:00pm Start: 10-02-2021 Fluticasone-Um eclidin-Vilanter (Trelegy Ellipta) 100-62.5-25 mcg blister with device Active 1 INH INHALATION Daily October 02, 2021 12:00am Start: 10-02-2021 Fluticasone-Um eclidin-Vilanter (Trelegy Ellipta) 100-62.5-25 mcg blister with device Active 2 INH INHALATION Daily October 02, 2021 12:00am Start: 04-16-2020 take 1 puff(s) by inhalation once daily Trelegy Ellipta 100-62.5-25 MCG/ACT 1 pu ff Inhalation Once a day Apr, Active LORazepam 0.5 mg oral tablet (20 sources) Benzodiazepine Start: 01-25-2023 take 1 tablet by mouth every twenty-four hours LORazepam 0.5 MG 1 tablet as needed Orally Once a day for 30 days OK for early refill. Patient will be moving to a new home this coming week Jan, Active Start: 01-05-2023 take 1 tablet by segun th every twenty-four hours LORazepam 0.5 MG 1 tablet as needed Orally Once a day for 30 days Dec, Active Start: 12-05-2022 take 1 tablet by segun th every twenty-four hours LORazepam 0.5 MG 1 tablet as needed Orally Once a day for 30 days Nov, Active Start: 11-08-2022 take 1 tablet by segun th every twenty-four hours LORazepam 0.5 MG 1 tablet as needed Orally Once a day for 30 days Nov, Active Start: 10-17-2022 take 1 tablet by segun th every twenty-four hours LORazepam 0.5 MG 1 tablet as needed Orally Once a day for 30 days Oct, Active Start: 09-12-2022 take 1 tablet by segun th every twenty-four hours LORazepam 0.5 MG 1 tablet as needed Orally Once a day for 30 days Sep, Active Start: 08-15-2022 take 1 tablet by segun th every twenty-four hours LORazepam 0.5 MG 1 tablet as needed Orally Once a day for 30 days August, Active Start: 07-14-2022 take 1 tablet by segun th every twenty-four hours LORazepam 0.5 MG 1 tablet as needed Orally Once a day Jul, Active Start: 06-13-2022 take 1 tablet by segun th every twenty-four hours LORazepam 0.5 MG 1 tablet as needed Orally Once a day for 30 days Jun, Active Start: 05-16-2022 take 1 tablet by segun th every twenty-four hours LORazepam 0.5 MG 1 tablet as needed Orally Once a day for 30 days May, Active Start: 03-14-2022 take 1 tablet by segun th every twenty-four hours LORazepam 0.5 MG 1 tablet as needed Orally Once a day for 30 days Mar, Active Start: 01-13-2022 take 1 tablet by segun th every twenty-four hours LORazepam 0.5 MG 1 tablet as needed Orally Once a day for 30 day(s) Jan, Active Start: 12-16-2021 take 1 tablet by segun th every twenty-four hours LORazepam 0.5 MG 1 tablet as needed Orally Once a day for 30 day(s) Dec, Active Start: 11-16-2021 take 1 tablet by segun th every twenty-four hours LORazepam 0.5 MG 1 tablet as needed Orally Once a day for 30 day(s) Nov, Active Start: 10-18-2021 take 1 tablet by segun th every twenty-four hours LORazepam 0.5 MG 1 tablet as needed Orally Once a day for 30 day(s) Oct, Active Start: 10-02-2021 Lorazepam Acti ve MG TABLET October 02, 2021 12:00am Start: 09-15-2021 take 1 tablet by segun th every twenty-four hours LORazepam 0.5 MG 1 tablet as needed Orally Once a day for 30 day(s) Sep, Active Start: 08-16-2021 take 1 tablet by segun th every twenty-four hours LORazepam 0.5 MG 1 tablet as needed Orally Once a day for 30 day(s) August, Active Start: 07-19-2021 take 1 tablet by segun th every twenty-four hours LORazepam 0.5 MG 1 tablet as needed Orally Once a day for 30 day(s) Jul, Active predniSONE 20 mg oral tablet (10 sources) Start: 02-14-2023 take 2 tablets by mouth once daily Prednisone 20 mg tablet Active 40 mg PO DAILY February 14, 2023 1:00am Start: 02-14-2023 take 40 mg by mouth once daily Prednisone Active 40 MG PO DAILY February 14, 2023 1:00am Start: 10-30-2021 End: 12-04-2021 take 50 mg by mouth once daily Prednisone Discontinued 50 MG PO Daily 3 October 30, 2021 12:00am December 04, 2021 1:14pm Trelegy Ellipta 100-62.5-25 MCG/INH (12 sources) Start: 04-16-2020 take 1 puff(s) by inhalation once daily Trelegy Ellipta 100-62.5-25 MCG/INH 1 puff Inhalation Once a day Apr, Active Start: 04-16-2020 take 1 puff(s) by in halation once daily Trelegy Ellipta 100-62.5-25 MCG/INH 1 puff Inhalation Once a day for 90 day(s) Apr, Active Completed/Discontinued Medications Medication Drug Class(es) [...] for 90 days Mar, Not-Taking polymyxin b 83574 unt/ml / trimethoprim 1 mg/ml ophthalmic solution (5 sources) Dihydrofolate Reductase Inhibitor Antibacterial, Polymyxin-class Antibacterial Start: 10-02-2021 End: 12-04-2021 take 1 drop(s) into the eye(s) four times daily Polymyxin B Sulf-Trimethoprim (Polytrim) 10,000 unit- 1 mg/mL drops Discontinued 1 DROPS EYE-RIGHT Four times daily 10 3 October 02, 2021 12:00am December 04, 2021 1:14pm sulfamethoxazole [...] pulmonary disease, unspecified] Onset: 02-10-2022 10-30-2021 Chronic Deficiency and other anemia (1 source) Other hemoglobinopathies; 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) [...] D deficiency; Translations: [Vitamin D deficiency, unspecified] Onset: 09-09-2024 Chronic Other ear and sense organ disorders [...] disorders of eye and adnexa] Onset: 10-02-2021 Viral infection (5 sources) Herpes zoster; Translations: [Zoster without complications] 02-14-2023 Episodic Past or Other Problems Problem Classification Problem [...] Results Test Name Value Interpretation Reference Range Facility Basic Metabolic Profile (BMP )on 02-17-2025 BUN Normal 4-19 [facility] Comment on above: Result Comment: Canc elled via OM: Order cancelled - Patient discharged Performed By: #### L 500.2500, L100.0100 #### [facility] [address] [place], [address] BUN/CRE Normal 10-20 [facility] Comment on above: Result Comment: Canc elled via OM: Order cancelled - Patient discharged Performed By: #### L 500.2500, L100.0100 #### [facility] [address] [place], [address] Calcium Normal 7.6-11.0 [facility] Comment on above: Result Comment: Canc elled via OM: Order cancelled - Patient discharged Performed By: #### L 500.2500, L100.0100 #### [facility] [address] [place], [address] CL Normal 98-108 [facility] Comment on above: Result Comment: Canc elled via OM: Order cancelled - Patient discharged Performed By: #### L 500.2500, L100.0100 #### [facility] [address] [place], [address] CO2 Normal 21.0-32.0 [facility] Comment on above: Result Comment: Canc elled via OM: Order cancelled - Patient discharged Performed By: #### L 500.2500, L100.0100 #### [facility] [address] [place], [address] CREAT,SERUM Normal 0.70-1.20 [facility] Comment on above: Result Comment: Canc elled via OM: Order cancelled - Patient discharged Performed By: #### L 500.2500, L100.0100 #### [facility] [address] [place], [address] eGFR Normal >60 [facility] Comment on above: Result Comment: Canc elled via OM: Order cancelled - Patient discharged Performed By: #### L 500.2500, L100.0100 #### [facility] [address] [place], [address] GAP Normal 5-15 [facility] Comment on above: Result Comment: Canc elled via OM: Order cancelled - Patient discharged Performed By: #### L 500.2500, L100.0100 #### [facility] [address] [place], [address] GLU Normal 70-99 [facility] Comment on above: Result Comment: Canc elled via OM: Order cancelled - Patient discharged Performed By: #### L 500.2500, L100.0100 #### [facility] [address] [place], [address] Potassium Normal 3.3-5.1 [facility] Comment on above: Result Comment: Canc elled via OM: Order cancelled - Patient discharged Performed By: #### L 500.2500, L100.0100 #### [facility] [address] [place], [address] Basic Metabolic Profile (BMP) Normal 133-145 [facility] Comment on above: Result Comment: Canc elled via OM: Order cancelled - Patient discharged Performed By: #### L 500.2500, L100.0100 #### [facility] [address] [place], [address] CBC W/Diff, Automatedon 11- 0-2024 Absolute Neut Normal 2.0-7.7 [facility] Comment on above: Result Comment: Canc elled via OM: Order cancelled - Patient discharged Performed By: #### L 500.2500, L100.0100 #### [facility] [address] [place], [address] HCT Normal 37-47 [facility] Comment on above: Result Comment: Canc elled via OM: Order cancelled - Patient discharged Performed By: #### L 500.2500, L100.0100 #### [facility] [address] [place], [address] HGB Normal 12.0-15.0 [facility] Comment on above: Result Comment: Canc elled via OM: Order cancelled - Patient discharged Performed By: #### L 500.2500, L100.0100 #### [facility] [address] [place], [address] MCH Normal 27.0-32.0 [facility] Comment on above: Result Comment: Canc elled via OM: Order cancelled - Patient discharged Performed By: #### L 500.2500, L100.0100 #### [facility] [address] [place], [address] MCHC Normal 32-36 [facility] Comment on above: Result Comment: Canc elled via OM: Order cancelled - Patient discharged Performed By: #### L 500.2500, L100.0100 #### [facility] [address] [place], [address] MCV Normal 81-99 [facility] Comment on above: Result Comment: Canc elled via OM: Order cancelled - Patient discharged Performed By: #### L 500.2500, L100.0100 #### [facility] [address] [place], [address] NEUT% Normal 47-70 [facility] Comment on above: Result Comment: Canc elled via OM: Order cancelled - Patient discharged Performed By: #### L 500.2500, L100.0100 #### [facility] [address] [place], [address] PLT Normal 150-450 [facility] Comment on above: Result Comment: Canc elled via OM: Order cancelled - Patient discharged Performed By: #### L 500.2500, L100.0100 #### [facility] [address] [place], [address] RBC Normal 4.2-5.4 [facility] Comment on above: Result Comment: Canc elled via OM: Order cancelled - Patient discharged Performed By: #### L 500.2500, L100.0100 #### [facility] [address] [place], [address] RDW CV Normal 11.6-14.6 [facility] Comment on above: Result Comment: Canc elled via OM: Order cancelled - Patient discharged Performed By: #### L 500.2500, L100.0100 #### [facility] [address] [place], [address] RDW SD Normal 35.1-43.9 [facility] Comment on above: Result Comment: Canc elled via OM: Order cancelled - Patient discharged Performed By: #### L 500.2500, L100.0100 #### [facility] [address] [place], [address] WBC Normal 4.4-11.0 [facility] Comment on above: Result Comment: Canc elled via OM: Order cancelled - Patient discharged Performed By: #### L 500.2500, L100.0100 #### [facility] [address] [place], [address] Basic Metabolic Profile (BMP )on 02-16-2025 BUN Normal 4-19 [facility] Comment on above: Result Comment: Canc elled via OM: Order cancelled - Patient discharged Performed By: #### L 100.0100, L500.4100, L500.4050 #### [facility] [address] [place], [address] BUN/CRE Normal 10-20 [facility] Comment on above: Result Comment: Canc elled via OM: Order cancelled - Patient discharged Performed By: #### L 100.0100, L500.4100, L500.4050 #### [facility] [address] [place], [address] Calcium Normal 7.6-11.0 [facility] Comment on above: Result Comment: Canc elled via OM: Order cancelled - Patient discharged Performed By: #### L 100.0100, L500.4100, L500.4050 #### [facility] [address] [place], [address] CL Normal 98-108 [facility] Comment on above: Result Comment: Canc elled via OM: Order cancelled - Patient discharged Performed By: #### L 100.0100, L500.4100, L500.4050 #### [facility] [address] [place], [address] CO2 Normal 21.0-32.0 [facility] Comment on above: Result Comment: Canc elled via OM: Order cancelled - Patient discharged Performed By: #### L 100.0100, L500.4100, L500.4050 #### [facility] [address] [place], [address] CREAT,SERUM Normal 0.70-1.20 [facility] Comment on above: Result Comment: Canc elled via OM: Order cancelled - Patient discharged Performed By: #### L 100.0100, L500.4100, L500.4050 #### [facility] [address] [place], [address] eGFR Normal >60 [facility] Comment on above: Result Comment: Canc elled via OM: Order cancelled - Patient discharged Performed By: #### L 100.0100, L500.4100, L500.4050 #### [facility] [address] [place], [address] GAP Normal 5-15 [facility] Comment on above: Result Comment: Canc elled via OM: Order cancelled - Patient discharged Performed By: #### L 100.0100, L500.4100, L500.4050 #### [facility] [address] [place], [address] GLU Normal 70-99 [facility] Comment on above: Result Comment: Canc elled via OM: Order cancelled - Patient discharged Performed By: #### L 100.0100, L500.4100, L500.4050 #### [facility] [address] [place], [address] Potassium Normal 3.3-5.1 [facility] Comment on above: Result Comment: Canc elled via OM: Order cancelled - Patient discharged Performed By: #### L 100.0100, L500.4100, L500.4050 #### [facility] [address] [place], [address] Basic Metabolic Profile (BMP) Normal 133-145 [facility] Comment on above: Result Comment: Canc elled via OM: Order cancelled - Patient discharged Performed By: #### L 100.0100, L500.4100, L500.4050 #### [facility] [address] [place], [address] CBC W/Diff, Automatedon 11-0 Absolute Neut Normal 2.0-7.7 [facility] Comment on above: Result Comment: Canc elled via OM: Order cancelled - Patient discharged Performed By: #### L 100.0100, L500.4100, L500.4050 #### [facility] [address] [place], [address] HCT Normal 37-47 [facility] Comment on above: Result Comment: Canc elled via OM: Order cancelled - Patient discharged Performed By: #### L 100.0100, L500.4100, L500.4050 #### [facility] [address] [place], [address] HGB Normal 12.0-15.0 [facility] Comment on above: Result Comment: Canc elled via OM: Order cancelled - Patient discharged Performed By: #### L 100.0100, L500.4100, L500.4050 #### [facility] [address] [place], [address] MCH Normal 27.0-32.0 [facility] Comment on above: Result Comment: Canc elled via OM: Order cancelled - Patient discharged Performed By: #### L 100.0100, L500.4100, L500.4050 #### [facility] [address] [place], [address] MCHC Normal 32-36 [facility] Comment on above: Result Comment: Canc elled via OM: Order cancelled - Patient discharged Performed By: #### L 100.0100, L500.4100, L500.4050 #### [facility] [address] [place], [address] MCV Normal 81-99 [facility] Comment on above: Result Comment: Canc elled via OM: Order cancelled - Patient discharged Performed By: #### L 100.0100, L500.4100, L500.4050 #### [facility] [address] [place], [address] NEUT% Normal 47-70 [facility] Comment on above: Result Comment: Canc elled via OM: Order cancelled - Patient discharged Performed By: #### L 100.0100, L500.4100, L500.4050 #### [facility] [address] [place], [address] PLT Normal 150-450 [facility] Comment on above: Result Comment: Canc elled via OM: Order cancelled - Patient discharged Performed By: #### L 100.0100, L500.4100, L500.4050 #### [facility] [address] [place], [address] RBC Normal 4.2-5.4 [facility] Comment on above: Result Comment: Canc elled via OM: Order cancelled - Patient discharged Performed By: #### L 100.0100, L500.4100, L500.4050 #### [facility] [address] [place], [address] RDW CV Normal 11.6-14.6 [facility] Comment on above: Result Comment: Canc elled via OM: Order cancelled - Patient discharged Performed By: #### L 100.0100, L500.4100, L500.4050 #### [facility] [address] [place], [address] RDW SD Normal 35.1-43.9 [facility] Comment on above: Result Comment: Canc elled via OM: Order cancelled - Patient discharged Performed By: #### L 100.0100, L500.4100, L500.4050 #### [facility] [address] [place], [address] WBC Normal 4.4-11.0 [facility] Comment on above: Result Comment: Canc elled via OM: Order cancelled - Patient discharged Performed By: #### L 100.0100, L500.4100, L500.4050 #### [facility] [address] [place], [address] Basic Metabolic Profile (BMP )on 02-15-2025 BUN Normal 4-19 [facility] Comment on above: Result Comment: Canc elled via OM: Order cancelled - Patient discharged Performed By: #### L 500.2500, L100.0100 #### [facility] [address] [place], [address] BUN/CRE Normal 10-20 [facility] Comment on above: Result Comment: Canc elled via OM: Order cancelled - Patient discharged Performed By: #### L 500.2500, L100.0100 #### [facility] [address] [place], [address] Calcium Normal 7.6-11.0 [facility] Comment on above: Result Comment: Canc elled via OM: Order cancelled - Patient discharged Performed By: #### L 500.2500, L100.0100 #### [facility] [address] [place], [address] CL Normal 98-108 [facility] Comment on above: Result Comment: Canc elled via OM: Order cancelled - Patient discharged Performed By: #### L 500.2500, L100.0100 #### [facility] [address] [place], [address] CO2 Normal 21.0-32.0 [facility] Comment on above: Result Comment: Canc elled via OM: Order cancelled - Patient discharged Performed By: #### L 500.2500, L100.0100 #### [facility] [address] [place], [address] CREAT,SERUM Normal 0.70-1.20 [facility] Comment on above: Result Comment: Canc elled via OM: Order cancelled - Patient discharged Performed By: #### L 500.2500, L100.0100 #### [facility] [address] [place], [address] eGFR Normal >60 [facility] Comment on above: Result Comment: Canc elled via OM: Order cancelled - Patient discharged Performed By: #### L 500.2500, L100.0100 #### [facility] [address] [place], [address] GAP Normal 5-15 [facility] Comment on above: Result Comment: Canc elled via OM: Order cancelled - Patient discharged Performed By: #### L 500.2500, L100.0100 #### [facility] [address] [place], [address] GLU Normal 70-99 [facility] Comment on above: Result Comment: Canc elled via OM: Order cancelled - Patient discharged Performed By: #### L 500.2500, L100.0100 #### [facility] [address] [place], [address] Potassium Normal 3.3-5.1 [facility] Comment on above: Result Comment: Canc elled via OM: Order cancelled - Patient discharged Performed By: #### L 500.2500, L100.0100 #### [facility] [address] [place], [address] Basic Metabolic Profile (BMP) Normal 133-145 [facility] Comment on above: Result Comment: Canc elled via OM: Order cancelled - Patient discharged Performed By: #### L 500.2500, L100.0100 #### [facility] [address] [place], [address] CBC W/Diff, Automatedon 11-0 Absolute Neut Normal 2.0-7.7 [facility] Comment on above: Result Comment: Canc elled via OM: Order cancelled - Patient discharged Performed By: #### L 500.2500, L100.0100 #### [facility] [address] [place], [address] HCT Normal 37-47 [facility] Comment on above: Result Comment: Canc elled via OM: Order cancelled - Patient discharged Performed By: #### L 500.2500, L100.0100 #### [facility] [address] [place], [address] HGB Normal 12.0-15.0 [facility] Comment on above: Result Comment: Canc elled via OM: Order cancelled - Patient discharged Performed By: #### L 500.2500, L100.0100 #### [facility] [address] [place] [place], [address] MCH Normal 27.0-32.0 [facility] Comment on above: Result Comment: Canc elled via OM: Order cancelled - Patient discharged Performed By: #### L 500.2500, L100.0100 #### [facility] [address] [place], [address] MCHC Normal 32-36 [facility] Comment on above: Result Comment: Canc elled via OM: Order cancelled - Patient discharged Performed By: #### L 500.2500, L100.0100 #### [facility] [address] [place], [address] MCV Normal 81-99 [facility] Comment on above: Result Comment: Canc elled via OM: Order cancelled - Patient discharged Performed By: #### L 500.2500, L100.0100 #### [facility] [address] [place], [address] NEUT% Normal 47-70 [facility] Comment on above: Result Comment: Canc elled via OM: Order cancelled - Patient discharged Performed By: #### L 500.2500, L100.0100 #### [facility] [address] [place], [address] PLT Normal 150-450 [facility] Comment on above: Result Comment: Canc elled via OM: Order cancelled - Patient discharged Performed By: #### L 500.2500, L100.0100 #### [facility] [address] [place], [address] RBC Normal 4.2-5.4 [facility] Comment on above: Result Comment: Canc elled via OM: Order cancelled - Patient discharged Performed By: #### L 500.2500, L100.0100 #### [facility] [address] [place], [address] RDW CV Normal 11.6-14.6 [facility] Comment on above: Result Comment: Canc elled via OM: Order cancelled - Patient discharged Performed By: #### L 500.2500, L100.0100 #### [facility] [address] [place], [address] RDW SD Normal 35.1-43.9 [facility] Comment on above: Result Comment: Canc elled via OM: Order cancelled - Patient discharged Performed By: #### L 500.2500, L100.0100 #### [facility] [address] [place], [address] WBC Normal 4.4-11.0 [facility] Comment on above: Result Comment: Canc elled via OM: Order cancelled - Patient discharged Performed By: #### L 500.2500, L100.0100 #### [facility] [address] [place], [address] Basic Metabolic Profile (BMP )on 02-14-2025 BUN Normal 4-19 [facility] Comment on above: Result Comment: Canc elled via OM: Order cancelled - Patient discharged Performed By: #### L 100.0100, L500.4100, L500.4050 #### [facility] [address] [place], [address] BUN/CRE Normal 10-20 [facility] Comment on above: Result Comment: Canc elled via OM: Order cancelled - Patient discharged Performed By: #### L 100.0100, L500.4100, L500.4050 #### [facility] [address] [place], [address] Calcium Normal 7.6-11.0 [facility] Comment on above: Result Comment: Canc elled via OM: Order cancelled - Patient discharged Performed By: #### L 100.0100, L500.4100, L500.4050 #### [facility] [address] [place] [place], [address] CL Normal 98-108 [facility] Comment on above: Result Comment: Canc elled via OM: Order cancelled - Patient discharged Performed By: #### L 100.0100, L500.4100, L500.4050 #### [facility] [address] [place], [address] CO2 Normal 21.0-32.0 [facility] Comment on above: Result Comment: Canc elled via OM: Order cancelled - Patient discharged Performed By: #### L 100.0100, L500.4100, L500.4050 #### [facility] [address] [place], [address] CREAT,SERUM Normal 0.70-1.20 [facility] Comment on above: Result Comment: Canc elled via OM: Order cancelled - Patient discharged Performed By: #### L 100.0100, L500.4100, L500.4050 #### [facility] [address] [place], [address] eGFR Normal >60 [facility] Comment on above: Result Comment: Canc elled via OM: Order cancelled - Patient discharged Performed By: #### L 100.0100, L500.4100, L500.4050 #### [facility] [address] [place], [address] GAP Normal 5-15 [facility] Comment on above: Result Comment: Canc elled via OM: Order cancelled - Patient discharged Performed By: #### L 100.0100, L500.4100, L500.4050 #### [facility] [address] [place], [address] GLU Normal 70-99 [facility] Comment on above: Result Comment: Canc elled via OM: Order cancelled - Patient discharged Performed By: #### L 100.0100, L500.4100, L500.4050 #### [facility] [address] [place] [place], [address] Potassium Normal 3.3-5.1 [facility] Comment on above: Result Comment: Canc elled via OM: Order cancelled - Patient discharged Performed By: #### L 100.0100, L500.4100, L500.4050 #### [facility] [address] [place], [address] Basic Metabolic Profile (BMP) Normal 133-145 [facility] Comment on above: Result Comment: Canc elled via OM: Order cancelled - Patient discharged Performed By: #### L 100.0100, L500.4100, L500.4050 #### [facility] [address] [place], [address] CBC W/Diff, Automatedon 11-0 Absolute Neut Normal 2.0-7.7 [facility] Comment on above: Result Comment: Canc elled via OM: Order cancelled - Patient discharged Performed By: #### L 100.0100, L500.4100, L500.4050 #### [facility] [address] [place], [address] HCT Normal 37-47 [facility] Comment on above: Result Comment: Canc elled via OM: Order cancelled - Patient discharged Performed By: #### L 100.0100, L500.4100, L500.4050 #### [facility] [address] [place], [address] HGB Normal 12.0-15.0 [facility] Comment on above: Result Comment: Canc elled via OM: Order cancelled - Patient discharged Performed By: #### L 100.0100, L500.4100, L500.4050 #### [facility] [address] [place], [address] MCH Normal 27.0-32.0 [facility] Comment on above: Result Comment: Canc elled via OM: Order cancelled - Patient discharged Performed By: #### L 100.0100, L500.4100, L500.4050 #### [facility] [address] [place], [address] MCHC Normal 32-36 [facility] Comment on above: Result Comment: Canc elled via OM: Order cancelled - Patient discharged Performed By: #### L 100.0100, L500.4100, L500.4050 #### [facility] [address] [place], [address] MCV Normal 81-99 [facility] Comment on above: Result Comment: Canc elled via OM: Order cancelled - Patient discharged Performed By: #### L 100.0100, L500.4100, L500.4050 #### [facility] [address] [place], [address] NEUT% Normal 47-70 [facility] Comment on above: Result Comment: Canc elled via OM: Order cancelled - Patient discharged Performed By: #### L 100.0100, L500.4100, L500.4050 #### [facility] [address] [place], [address] PLT Normal 150-450 [facility] Comment on above: Result Comment: Canc elled via OM: Order cancelled - Patient discharged Performed By: #### L 100.0100, L500.4100, L500.4050 #### [facility] [address] [place], [address] RBC Normal 4.2-5.4 [facility] Comment on above: Result Comment: Canc elled via OM: Order cancelled - Patient discharged Performed By: #### L 100.0100, L500.4100, L500.4050 #### [facility] [address] [place], [address] RDW CV Normal 11.6-14.6 [facility] Comment on above: Result Comment: Canc elled via OM: Order cancelled - Patient discharged Performed By: #### L 100.0100, L500.4100, L500.4050 #### [facility] [address] [place], [address] RDW SD Normal 35.1-43.9 [facility] Comment on above: Result Comment: Canc elled via OM: Order cancelled - Patient discharged Performed By: #### L 100.0100, L500.4100, L500.4050 #### [facility] [address] [place], [address] WBC Normal 4.4-11.0 [facility] Comment on above: Result Comment: Canc elled via OM: Order cancelled - Patient discharged Performed By: #### L 100.0100, L500.4100, L500.4050 #### [facility] [address] [place], [address] Basic Metabolic Profile (BMP )on 02-13-2025 BUN Normal 4-19 [facility] Comment on above: Result Comment: Canc elled via OM: Order cancelled - Patient discharged Performed By: #### L 100.0100, L500.4100, L500.4050 #### [facility] [address] [place], [address] BUN/CRE Normal 10-20 [facility] Comment on above: Result Comment: Canc elled via OM: Order cancelled - Patient discharged Performed By: #### L 100.0100, L500.4100, L500.4050 #### [facility] [address] [place], [address] Calcium Normal 7.6-11.0 [facility] Comment on above: Result Comment: Canc elled via OM: Order cancelled - Patient discharged Performed By: #### L 100.0100, L500.4100, L500.4050 #### [facility] [address] [place], [address] CL Normal 98-108 [facility] Comment on above: Result Comment: Canc elled via OM: Order cancelled - Patient discharged Performed By: #### L 100.0100, L500.4100, L500.4050 #### [facility] [address] [place], [address] CO2 Normal 21.0-32.0 [facility] Comment on above: Result Comment: Canc elled via OM: Order cancelled - Patient discharged Performed By: #### L 100.0100, L500.4100, L500.4050 #### [facility] [address] [place], [address] CREAT,SERUM Normal 0.70-1.20 [facility] Comment on above: Result Comment: Canc elled via OM: Order cancelled - Patient discharged Performed By: #### L 100.0100, L500.4100, L500.4050 #### [facility] [address] [place], [address] eGFR Normal >60 [facility] Comment on above: Result Comment: Canc elled via OM: Order cancelled - Patient discharged Performed By: #### L 100.0100, L500.4100, L500.4050 #### [facility] [address] [place], [address] GAP Normal 5-15 [facility] Comment on above: Result Comment: Canc elled via OM: Order cancelled - Patient discharged Performed By: #### L 100.0100, L500.4100, L500.4050 #### [facility] [address] [place], [address] GLU Normal 70-99 [facility] Comment on above: Result Comment: Canc elled via OM: Order cancelled - Patient discharged Performed By: #### L 100.0100, L500.4100, L500.4050 #### [facility] [address] [place], [address] Potassium Normal 3.3-5.1 [facility] Comment on above: Result Comment: Canc elled via OM: Order cancelled - Patient discharged Performed By: #### L 100.0100, L500.4100, L500.4050 #### [facility] [address] [place], [address] Basic Metabolic Profile (BMP) Normal 133-145 [facility] Comment on above: Result Comment: Canc elled via OM: Order cancelled - Patient discharged Performed By: #### L 100.0100, L500.4100, L500.4050 #### [facility] [address] [place], [address] CBC W/Diff, Automatedon 11-0 -2024 Absolute Neut Normal 2.0-7.7 [facility] Comment on above: Result Comment: Canc elled via OM: Order cancelled - Patient discharged Performed By: #### L 100.0100, L500.4100, L500.4050 #### [facility] [address] [place], [address] HCT Normal 37-47 [facility] Comment on above: Result Comment: Canc elled via OM: Order cancelled - Patient discharged Performed By: #### L 100.0100, L500.4100, L500.4050 #### [facility] [address] [place], [address] HGB Normal 12.0-15.0 [facility] Comment on above: Result Comment: Canc elled via OM: Order cancelled - Patient discharged Performed By: #### L 100.0100, L500.4100, L500.4050 #### [facility] [address] [place], [address] MCH Normal 27.0-32.0 [facility] Comment on above: Result Comment: Canc elled via OM: Order cancelled - Patient discharged Performed By: #### L 100.0100, L500.4100, L500.4050 #### [facility] [address] [place], [address] MCHC Normal 32-36 [facility] Comment on above: Result Comment: Canc elled via OM: Order cancelled - Patient discharged Performed By: #### L 100.0100, L500.4100, L500.4050 #### [facility] [address] [place], [address] MCV Normal 81-99 [facility] Comment on above: Result Comment: Canc elled via OM: Order cancelled - Patient discharged Performed By: #### L 100.0100, L500.4100, L500.4050 #### [facility] [address] [place], [address] NEUT% Normal 47-70 [facility] Comment on above: Result Comment: Canc elled via OM: Order cancelled - Patient discharged Performed By: #### L 100.0100, L500.4100, L500.4050 #### [facility] [address] [place] [place], [address] PLT Normal 150-450 [facility] Comment on above: Result Comment: Canc elled via OM: Order cancelled - Patient discharged Performed By: #### L 100.0100, L500.4100, L500.4050 #### [facility] [address] [place], [address] RBC Normal 4.2-5.4 [facility] Comment on above: Result Comment: Canc elled via OM: Order cancelled - Patient discharged Performed By: #### L 100.0100, L500.4100, L500.4050 #### [facility] [address] [place], [address] RDW CV Normal 11.6-14.6 [facility] Comment on above: Result Comment: Canc elled via OM: Order cancelled - Patient discharged Performed By: #### L 100.0100, L500.4100, L500.4050 #### [facility] [address] [place], [address] RDW SD Normal 35.1-43.9 [facility] Comment on above: Result Comment: Canc elled via OM: Order cancelled - Patient discharged Performed By: #### L 100.0100, L500.4100, L500.4050 #### [facility] [address] [place], [address] WBC Normal 4.4-11.0 [facility] Comment on above: Result Comment: Canc elled via OM: Order cancelled - Patient discharged Performed By: #### L 100.0100, L500.4100, L500.4050 #### [facility] [address] [place], [address] Respiratory Cultureon 2024 RESPC No Haemophilus, beta-hemolytic Streptococcus or Staphylococcus aureus isolated. Streptococcus pneumoniae Amount Growth 2+ Presumptive C albicans Amount Growth 2+ Streptococcus pneumoniae: REACTION Cefotaxime Islt JOE <=0.12 S Cefotaxime Islt JOE <=0.12 S cefTRIAXone Islt JOE <=0.12 S cefTRIAXone Islt JOE <=0.12 S Clindamycin Islt JOE <=0.25 S Erythromycin Islt JOE >=8 R levoFLOXacin Islt JOE 0.5 S Moxifloxacin Islt JOE 0.12 S TMP SMX Islt JOE <=10 S Vancomycin Islt JOE 0.5 S Penicillin Islt JOE <=0.06 S Penicillin Islt JOE <=0.06 S Penicillin Islt JOE <=0.06 S Normal [facility] Comment on above: Performed By: #### L 100.0100, L500.4100, L500.4050 #### [facility] [address] [place], [address] Basic Metabolic Profile (BMP )on 02-12-2025 BUN Normal 4-19 [facility] Comment on above: Result Comment: Canc elled via OM: Order cancelled - Patient discharged Performed By: #### L 100.0100, L500.4100, L500.4050 #### [facility] [address] [place], [address] BUN/CRE Normal 10-20 [facility] Comment on above: Result Comment: Canc elled via OM: Order cancelled - Patient discharged Performed By: #### L 100.0100, L500.4100, L500.4050 #### [facility] [address] [place], [address] Calcium Normal 7.6-11.0 [facility] Comment on above: Result Comment: Canc elled via OM: Order cancelled - Patient discharged Performed By: #### L 100.0100, L500.4100, L500.4050 #### [facility] [address] [place], [address] CL Normal 98-108 [facility] Comment on above: Result Comment: Canc elled via OM: Order cancelled - Patient discharged Performed By: #### L 100.0100, L500.4100, L500.4050 #### [facility] [address] [place], [address] CO2 Normal 21.0-32.0 [facility] Comment on above: Result Comment: Canc elled via OM: Order cancelled - Patient discharged Performed By: #### L 100.0100, L500.4100, L500.4050 #### [facility] [address] [place], [address] CREAT,SERUM Normal 0.70-1.20 [facility] Comment on above: Result Comment: Canc elled via OM: Order cancelled - Patient discharged Performed By: #### L 100.0100, L500.4100, L500.4050 #### [facility] [address] [place], [address] eGFR Normal >60 [facility] Comment on above: Result Comment: Canc elled via OM: Order cancelled - Patient discharged Performed By: #### L 100.0100, L500.4100, L500.4050 #### [facility] [address] [place], [address] GAP Normal 5-15 [facility] Comment on above: Result Comment: Canc elled via OM: Order cancelled - Patient discharged Performed By: #### L 100.0100, L500.4100, L500.4050 #### [facility] [address] [place], [address] GLU Normal 70-99 [facility] Comment on above: Result Comment: Canc elled via OM: Order cancelled - Patient discharged Performed By: #### L 100.0100, L500.4100, L500.4050 #### [facility] [address] [place] [place], [address] Potassium Normal 3.3-5.1 [facility] Comment on above: Result Comment: Canc elled via OM: Order cancelled - Patient discharged Performed By: #### L 100.0100, L500.4100, L500.4050 #### [facility] [address] [place], [address] Basic Metabolic Profile (BMP) Normal 133-145 [facility] Comment on above: Result Comment: Canc elled via OM: Order cancelled - Patient discharged Performed By: #### L 100.0100, L500.4100, L500.4050 #### [facility] [address] [place], [address] CBC W/Diff, Automatedon 11-0 -2024 Absolute Neut Normal 2.0-7.7 [facility] Comment on above: Result Comment: Canc elled via OM: Order cancelled - Patient discharged Performed By: #### L 100.0100, L500.4100, L500.4050 #### [facility] [address] [place], [address] HCT Normal 37-47 [facility] Comment on above: Result Comment: Canc elled via OM: Order cancelled - Patient discharged Performed By: #### L 100.0100, L500.4100, L500.4050 #### [facility] [address] [place], [address] HGB Normal 12.0-15.0 [facility] Comment on above: Result Comment: Canc elled via OM: Order cancelled - Patient discharged Performed By: #### L 100.0100, L500.4100, L500.4050 #### [facility] [facility] [address] [place], [address] MCH Normal 27.0-32.0 [facility] Comment on above: Result Comment: Canc elled via OM: Order cancelled - Patient discharged Performed By: #### L 100.0100, L500.4100, L500.4050 #### [facility] [address] [place], [address] MCHC Normal 32-36 [facility] Comment on above: Result Comment: Canc elled via OM: Order cancelled - Patient discharged Performed By: #### L 100.0100, L500.4100, L500.4050 #### [facility] [address] [place], [address] MCV Normal 81-99 [facility] Comment on above: Result Comment: Canc elled via OM: Order cancelled - Patient discharged Performed By: #### L 100.0100, L500.4100, L500.4050 #### [facility] [address] [place], [address] NEUT% Normal 47-70 [facility] Comment on above: Result Comment: Canc elled via OM: Order cancelled - Patient discharged Performed By: #### L 100.0100, L500.4100, L500.4050 #### [facility] [address] [place], [address] PLT Normal 150-450 [facility] Comment on above: Result Comment: Canc elled via OM: Order cancelled - Patient discharged Performed By: #### L 100.0100, L500.4100, L500.4050 #### [facility] [address] [place], [address] RBC Normal 4.2-5.4 [facility] Comment on above: Result Comment: Canc elled via OM: Order cancelled - Patient discharged Performed By: #### L 100.0100, L500.4100, L500.4050 #### [facility] [address] [place], [address] RDW CV Normal 11.6-14.6 [facility] Comment on above: Result Comment: Canc elled via OM: Order cancelled - Patient discharged Performed By: #### L 100.0100, L500.4100, L500.4050 #### [facility] [address] [place], [address] RDW SD Normal 35.1-43.9 [facility] Comment on above: Result Comment: Canc elled via OM: Order cancelled - Patient discharged Performed By: #### L 100.0100, L500.4100, L500.4050 #### [facility] [address] [place], [address] WBC Normal 4.4-11.0 [facility] Comment on above: Result Comment: Canc elled via OM: Order cancelled - Patient discharged Performed By: #### L 100.0100, L500.4100, L500.4050 #### [facility] [address] [place], [address] Basic Metabolic Profile (BMP )on 02-11-2025 BUN/CRE 27.5 RATIO High 10-20 [facility] Comment on above: Performed By: #### L 100.0100, L500.4100, L500.4050 #### [facility] [address] [place], [address] Calcium [Mass/Vol] 9.0 mg/dL Normal 7.6-11.0 [facility] Comment on above: Performed By: #### L 100.0100, L500.4100, L500.4050 #### [facility] [address] [place], [address] Chloride [Moles/Vol] 96 mmol/L Low 98-108 [place] Comment on above: Performed By: #### L 100.0100, L500.4100, L500.4050 #### [facility] [address] [place], [address] CO2 [Moles/Vol] 26.6 mmol/L Normal 21.0-32.0 [facility] Comment on above: Performed By: #### L 100.0100, L500.4100, L500.4050 #### [facility] [address] [place], [address] Creatinine [Mass/Vol] 0.36 mg/dL Low 0.70-1.20 [facility] Comment on above: Performed By: #### L 100.0100, L500.4100, L500.4050 #### [facility] [address] [place], [address] ECRCL 40.15 ml/min Low 50-250 [facility] Comment on above: Performed By: #### L 100.0100, L500.4100, L500.4050 #### [facility] [address] [place], [address] GAP 9 Normal 5-15 [facility] Comment on above: Performed By: #### L 100.0100, L500.4100, L500.4050 #### [facility] [address] [place], [address] GFR/1.73 sq M.predicted among non-blacks MDRD (S/P/Bld) [Vol rate/Area] 103 mL/min/{1.73_m2} Normal >60 [facility] Comment on above: Result Comment: mL/m in/1.73m2 CKD-EPI Creatinine Equation (2020) Performed By: #### L 100.0100, L500.4100, L500.4050 #### [facility] [address] [place], [address] Glucose [Mass/Vol] 135 mg/dL High 70-99 [facility] Comment on above: Performed By: #### L 100.0100, L500.4100, L500.4050 #### [facility] [address] [place], [address] Potassium [Moles/Vol] 4.6 mmol/L Normal 3.3-5.1 [facility] Comment on above: Performed By: #### L 100.0100, L500.4100, L500.4050 #### [facility] [address] [place], [address] Sodium [Moles/Vol] 132 mmol/L Low 133-145 [facility] Comment on above: Performed By: #### L 100.0100, L500.4100, L500.4050 #### [facility] [address] [place], [address] Urea nitrogen [Mass/Vol] 10 mg/dL Normal 4-19 [facility] Comment on above: Performed By: #### L 100.0100, L500.4100, L500.4050 #### [facility] [address] [place], [address] CBC W/Diff, Automatedon 11-0 -2024 Absolute Lymph 1.19 X10 3/uL Normal 0.83-4.51 [facility] Comment on above: Performed By: #### L 100.0100, L500.4100, L500.4050 #### [facility] [address] [place], [address] Absolute Neut 16.6 X10 3/uL High 2.0-7.7 [facility] Comment on above: Performed By: #### L 100.0100, L500.4100, L500.4050 #### [facility] [address] [place], [address] Basophils/100 WBC (Bld) 0.2 % Normal 0-1 [facility] Comment on above: Performed By: #### L 100.0100, L500.4100, L500.4050 #### [facility] [address] [place], [address] Eosinophils/100 WBC (Bld) 0.0 % Normal 0-5 [facility] Comment on above: Performed By: #### L 100.0100, L500.4100, L500.4050 #### [facility] [address] [place], [address] Erythrocyte distribution width (RBC) [Ratio] 13.9 % Normal 11.6-14.6 [facility] Comment on above: Performed By: #### L 100.0100, L500.4100, L500.4050 #### [facility] [address] [place], [address] Hematocrit (Bld) [Volume fraction] 39.7 % Normal 37-47 [facility] Comment on above: Performed By: #### L 100.0100, L500.4100, L500.4050 #### [facility] [address] [place], [address] Hemoglobin (Bld) [Mass/Vol] 13.4 g/dL Normal 12.0-15.0 [facility] Comment on above: Performed By: #### L 100.0100, L500.4100, L500.4050 #### [facility] [address] [place], [address] IG% 1.000 High 0.0-0.9 [facility] Comment on above: Result Comment: IG% - Immature Granulocytes (promyelocytes, myelocytes and metamyelocytes) > 1% indicates that a LEFT SHIFT is Present. Performed By: #### L 100.0100, L500.4100, L500.4050 #### [facility] [address] [place], [address] Lymphocytes/100 WBC (Bld) 6.2 % Low 19-41 [facility] Comment on above: Performed By: #### L 100.0100, L500.4100, L500.4050 #### [facility] [address] [place], [address] MCH (RBC) [Entitic mass] 29.8 pg Normal 27.0-32.0 [facility] Comment on above: Performed By: #### L 100.0100, L500.4100, L500.4050 #### [facility] [address] [place], [address] MCHC (RBC) [Mass/Vol] 33.8 g/dL Normal 32-36 [facility] Comment on above: Performed By: #### L 100.0100, L500.4100, L500.4050 #### [facility] [address] [place], [address] MCV (RBC) [Entitic vol] 88.4 fL Normal 81-99 [facility] Comment on above: Performed By: #### L 100.0100, L500.4100, L500.4050 #### [facility] [address] [place], [address] Monocytes/100 WBC (Bld) 5.8 % Normal 0-10 [facility] Comment on above: Performed By: #### L 100.0100, L500.4100, L500.4050 #### [facility] [address] [place], [address] Neutrophils/100 WBC (Bld) 86.8 % High 47-70 [facility] Comment on above: Performed By: #### L 100.0100, L500.4100, L500.4050 #### [facility] [address] [place], [address] Nucleated RBC (Bld) [#/Vol] 0 10*3/uL Normal 0-5 [facility] Comment on above: Performed By: #### L 100.0100, L500.4100, L500.4050 #### [facility] [address] [place], [address] Platelet mean volume (Bld) [Entitic vol] 9.8 fL Normal 6.2-12.0 [facility] Comment on above: Performed By: #### L 100.0100, L500.4100, L500.4050 #### [facility] [address] [place], [address] Platelets (Bld) [#/Vol] 375 10*3/uL Normal 150-450 [facility] Comment on above: Performed By: #### L 100.0100, L500.4100, L500.4050 #### [facility] [address] [place], [address] RBC (Bld) [#/Vol] 4.49 10*6/uL Normal 4.2-5.4 [facility] Comment on above: Performed By: #### L 100.0100, L500.4100, L500.4050 #### [facility] [address] [place], [address] RDW SD 44.6 fl High 35.1-43.9 [facility] Comment on above: Performed By: #### L 100.0100, L500.4100, L500.4050 #### [facility] [address] [place], [address] WBC (Bld) [#/Vol] 19.1 10*3/uL High 4.4-11.0 [facility] Comment on above: Performed By: #### L 100.0100, L500.4100, L500.4050 #### [facility] [address] [place], [address] Discharge Instructionon 11-0 Discharge Instruction [facility] Medical Records Department [address] [place] [address] Instructions for Home/Discharge Instructions 02/11/25 1403 MR#: [id number] Acct: [id number] Name: RADHA ATKINSON Rep #: [id number] : 1945 79 From: Juli Rios MD PCP: Dr. Mariel Duke MD Status:ADM IN Discharge Instructions DC O2, CPAP, BIPAP needs Home O2 Discharge instructions: No Dressing / Incision Discharge Activity: - (Increase activity as tolerated) Follow Up Care Test Results: Test results from this visit will be discussed in further detail at your follow-up appointment, if applicable. Discharge Plan Admission Admit Date/Time: 02/10/25 15:48 Primary Reason for Your Visit: Increased shortness of breath Attending Provider: Juli Rios Primary Care Provider: Mariel Duke Consulting Providers: Zeinab Ramires Instructions Patient Instructions: COPD Controlled Breathing Dc, COPD: Using Inhalers, ED COPD Flare Additional Instructions / Restrictions: DISCHARGE INSTRUCTIONS PLEASE READ *Please take this with you to your next doctors appointment* - You will be discharged on 3 more days of azithromycin for your breathing - A prescription for nebulizer solution will be sent into preferred pharmacy on file, you indicated that you have a nebulizer at home, please use this up to every 4 hours as needed for shortness of breath and wheezing -You will be discharged on a prednisone taper: -60 mg daily x3 days -50mg daily x3 days -40mg daily x3 days -30mg daily x3 days -20mg daily x3 days -10mg daily x3 days -It is very important that you quit smoking moving forward -Please call your primary care provider's office upon discharge to schedule a hospital follow up within 1 week. -For any concerning signs or symptoms please call 911 or proceed to the nearest emergency department Discharge Orders/Prescriptions Prescriptions: New ipratropium-albuterol 0.5 mg-3 mg(2.5 mg base)/3 mL Solution For Nebulization 3 ml inhalation [id number].RT PRN (Reason: Shortness of breath/weezing) Qty: 180 0RF azithromycin 250 mg Tablet 500 mg PO Q24 3 Days Qty: 6 0RF Rx Instructions: Start 02/12/25 prednisone 20 mg Tablet See Taper PO BREAKFAST Qty: 32 0RF Taper: Prednisone Taper 60 mg WITH BREAKFAST for 3 Days and 0 Hour 50 mg WITH BREAKFAST for 3 Days and 0 Hour 40 mg WITH BREAKFAST for 3 Days and 0 Hour 30 mg WITH BREAKFAST for 3 Days and 0 Hour 20 mg WITH BREAKFAST for 3 Days and 0 Hour 10 mg WITH BREAKFAST for 3 Days and 0 Hour Continued lorazepam 0.5 mg tablet 0.5 mg PO BID PRN PRN (Reason: anxiety) Trelegy Ellipta 200-62.5-25 mcg blister with device 1 ea INHALATION DAILY Referrals / Follow Up: Mariel Duke MD [Primary Care Provider, Family Practice] - Within 1 Week Disposition Disposition (needs filled in before D/C Order can be placed): Home, Self Care 02/11/25 1412 uJli Rios MD CC: Dr. Zeinab Ramires MD; Dr. Mariel Duke MD Signed Normal [facility] CBC W/Diff, Automatedon 11-0 -2024 Absolute Lymph 0.48 X10 3/uL Low 0.83-4.51 [facility] Comment on above: Performed By: #### L 100.0100, L500.4100, L500.4050 #### [facility] [address] [place], [address] Absolute Neut 7.1 X10 3/uL Normal 2.0-7.7 [facility] Comment on above: Performed By: #### L 100.0100, L500.4100, L500.4050 #### [facility] [address] [place], [address] Basophils/100 WBC (Bld) 0.3 % Normal 0-1 [facility] Comment on above: Performed By: #### L 100.0100, L500.4100, L500.4050 #### [facility] [address] [place], [address] Eosinophils/100 WBC (Bld) 0.0 % Normal 0-5 [facility] Comment on above: Performed By: #### L 100.0100, L500.4100, L500.4050 #### [facility] [address] [place], [address] Erythrocyte distribution width (RBC) [Ratio] 13.4 % Normal 11.6-14.6 [facility] Comment on above: Performed By: #### L 100.0100, L500.4100, L500.4050 #### [facility] [address] [facility] [place], [address] Hematocrit (Bld) [Volume fraction] 38.6 % Normal 37-47 [facility] Comment on above: Performed By: #### L 100.0100, L500.4100, L500.4050 #### [facility] [address] [facility], [address] Hemoglobin (Bld) [Mass/Vol] 13.3 g/dL Normal 12.0-15.0 [facility] Comment on above: Performed By: #### L 100.0100, L500.4100, L500.4050 #### [facility] [address] [place], [address] IG% 0.600 Normal 0.0-0.9 [facility] Comment on above: Result Comment: IG% - Immature Granulocytes (promyelocytes, myelocytes and metamyelocytes) > 1% indicates that a LEFT SHIFT is Present. Performed By: #### L 100.0100, L500.4100, L500.4050 #### [facility] [address] [place], [address] Lymphocytes/100 WBC (Bld) 6.1 % Low 19-41 [facility] Comment on above: Performed By: #### L 100.0100, L500.4100, L500.4050 #### [facility] [address] [place], [address] MCH (RBC) [Entitic mass] 30.0 pg Normal 27.0-32.0 [facility] Comment on above: Performed By: #### L 100.0100, L500.4100, L500.4050 #### [facility] [address] [place], [address] MCHC (RBC) [Mass/Vol] 34.5 g/dL Normal 32-36 [facility] Comment on above: Performed By: #### L 100.0100, L500.4100, L500.4050 #### [facility] [address] [place], [address] MCV (RBC) [Entitic vol] 87.1 fL Normal 81-99 [facility] Comment on above: Performed By: #### L 100.0100, L500.4100, L500.4050 #### [facility] [address] [place], [address] Monocytes/100 WBC (Bld) 2.9 % Normal 0-10 [facility] Comment on above: Performed By: #### L 100.0100, L500.4100, L500.4050 #### [facility] [address] [place], [address] Neutrophils/100 WBC (Bld) 90.1 % High 47-70 [facility] Comment on above: Performed By: #### L 100.0100, L500.4100, L500.4050 #### [facility] [address] [place], [address] Nucleated RBC (Bld) [#/Vol] 0 10*3/uL Normal 0-5 [facility] Comment on above: Performed By: #### L 100.0100, L500.4100, L500.4050 #### [facility] [address] [place], [address] Platelet mean volume (Bld) [Entitic vol] 10.2 fL Normal 6.2-12.0 [facility] Comment on above: Performed By: #### L 100.0100, L500.4100, L500.4050 #### [facility] [address] [place], [address] Platelets (Bld) [#/Vol] 305 10*3/uL Normal 150-450 [facility] Comment on above: Performed By: #### L 100.0100, L500.4100, L500.4050 #### [facility] [address] [place], [address] RBC (Bld) [#/Vol] 4.43 10*6/uL Normal 4.2-5.4 [facility] Comment on above: Performed By: #### L 100.0100, L500.4100, L500.4050 #### [facility] [address] [place], [address] RDW SD 42.7 fl Normal 35.1-43.9 [facility] Comment on above: Performed By: #### L 100.0100, L500.4100, L500.4050 #### [facility] [address] [place], [address] WBC (Bld) [#/Vol] 7.9 10*3/uL Normal 4.4-11.0 [facility] Comment on above: Performed By: #### L 100.0100, L500.4100, L500.4050 #### [facility] [address] [place], [address] Comprehensive Metabolic Prof [facility] 02-10-2025 Albumin [Mass/Vol] 3.7 g/dL Normal 3.4-4.8 [facility] Comment on above: Performed By: #### L 100.0100, L500.4100, L500.4050 #### [facility] [address] [place], [address] Albumin/Globulin [Mass ratio] 1.6 {ratio} Normal 0.9-2.4 [facility] Comment on above: Performed By: #### L 100.0100, L500.4100, L500.4050 #### [facility] [address] [place], [address] ALK PHOS 88 U/L Normal 35-104 [facility] Comment on above: Performed By: #### L 100.0100, L500.4100, L500.4050 #### [facility] [address] [place], [address] ALT [Catalytic activity/Vol] 7 U/L Normal <=34 [facility] Comment on above: Performed By: #### L 100.0100, L500.4100, L500.4050 #### [facility] [address] [place], [address] AST [Catalytic activity/Vol] 14 U/L Normal <=31 [facility] Comment on above: Performed By: #### L 100.0100, L500.4100, L500.4050 #### [facility] [address] [place], [address] Bilirubin [Mass/Vol] 0.38 mg/dL Normal 0.00-1.30 [place] Comment on above: Performed By: #### L 100.0100, L500.4100, L500.4050 #### [facility] [address] [place], [address] BUN/CRE 14.8 RATIO Normal 10-20 [facility] Comment on above: Performed By: #### L 100.0100, L500.4100, L500.4050 #### [facility] [address] [place], [address] Calcium [Mass/Vol] 8.8 mg/dL Normal 7.6-11.0 [facility] Comment on above: Performed By: #### L 100.0100, L500.4100, L500.4050 #### [facility] [address] [place], [address] Chloride [Moles/Vol] 94 mmol/L Low 98-108 [place] Comment on above: Performed By: #### L 100.0100, L500.4100, L500.4050 #### [facility] [address] [place] [place], [address] CO2 [Moles/Vol] 25.7 mmol/L Normal 21.0-32.0 [facility] Comment on above: Performed By: #### L 100.0100, L500.4100, L500.4050 #### [facility] [address] [place], [address] Creatinine [Mass/Vol] 0.44 mg/dL Low 0.70-1.20 [facility] Comment on above: Performed By: #### L 100.0100, L500.4100, L500.4050 #### [facility] [address] [place], [address] ECRCL 38.44 ml/min Low 50-250 [facility] Comment on above: Performed By: #### L 100.0100, L500.4100, L500.4050 #### [facility] [address] [place], [address] GAP 9 Normal 5-15 [facility] Comment on above: Performed By: #### L 100.0100, L500.4100, L500.4050 #### [facility] [address] [place], [address] GFR/1.73 sq M.predicted among non-blacks MDRD (S/P/Bld) [Vol rate/Area] 99 mL/min/{1.73_m2} Normal >60 [facility] Comment on above: Result Comment: mL/m in/1.73m2 CKD-EPI Creatinine Equation (2020) Performed By: #### L 100.0100, L500.4100, L500.4050 #### [facility] [address] [place], [address] Globulin (S) [Mass/Vol] 2.4 g/dL Normal 2.2-4.2 [facility] Comment on above: Performed By: #### L 100.0100, L500.4100, L500.4050 #### [facility] [address] [place], [address] Glucose [Mass/Vol] 204 mg/dL High 70-99 [facility] Comment on above: Performed By: #### L 100.0100, L500.4100, L500.4050 #### [facility] [address] [place], [address] Potassium [Moles/Vol] 4.6 mmol/L Normal 3.3-5.1 [facility] Comment on above: Performed By: #### L 100.0100, L500.4100, L500.4050 #### [facility] [address] [place], [address] Sodium [Moles/Vol] 129 mmol/L Low 133-145 [facility] Comment on above: Performed By: #### L 100.0100, L500.4100, L500.4050 #### [facility] [address] [place], [address] T PROT 6.1 g/dL Normal 5.9-8.4 [facility] Comment on above: Performed By: #### L 100.0100, L500.4100, L500.4050 #### [facility] [address] [place], [address] Urea nitrogen [Mass/Vol] 6 mg/dL Normal 4-19 [facility] Comment on above: Performed By: #### L 100.0100, L500.4100, L500.4050 #### [facility] [address] [place], [address] Gram Stainon 02-10-2025 GS Acceptable Specimen? Yes (<25 Epithelial cells per/lpf) Gram Stain 3+ Gram positive cocci 3+ Gram positive rods 1+ Yeast Like Organisms 1+ Gram negative cocci Normal [facility] Comment on above: Performed By: #### L 100.0100, L500.4100, L500.4050 #### [facility] [address] [place], [address] L509.7001on 02-10-2025 Procalcitonin 0.03 ng/mL Normal <=0.10 [facility] Comment on above: Result Comment: Inte rpretation: <0.10-0.25 ng/mL: Antibiotic therapy discouraged. Bacterial infection unlikely. 0.25-0.50 ng/mL: Antibiotic therapy encouraged. Bacterial infection possible. >0.50 ng/mL: Antibiotic therapy strongly encouraged. Suggestive of presence of bacterial infection. PCT should always be interpreted in the clinical context of the patient. Therefore, clinicians should use the PCT results in conjunction with other laboratory findings and clinical signs of the patient. Performed By: #### L 509.7001 #### [facility] [address] [place], [address] RESPIRATORY PANEL MOLECULARo n 02-10-2025 RP PANEL ADENOVIRUS Not Detected INFLUENZA A Not Detected INFLUENZA A (SUBTYPE H1) Not Detected INFLUENZA A (SUBTYPE H3) Not Detected INFLUENZA B Not Detected HUMAN METAPHNEUMO Not Detected PARAINFLUENZA 1 Not Detected PARAINFLUENZA 2 Not Detected PARAINFLUENZA 3 Not Detected PARAINFLUENZA 4 Not Detected RHINOVIRUS Not Detected RSV A Not Detected RSV B Not Detected Normal [facility] Comment on above: Performed By: #### L 100.0100, L500.4100, L500.4050 #### [facility] [address] [place], [address] 12 Lead EKGon 02-09-2025 12 Lead EKG [facility] [address] [place] [address] 12 Lead EKG 02/09/257 MR#: [id number] Acct: [id number] Name: RADHA ATKINSON Rep #: [id number] : 1945 79 From: Meet Heaton MD Attending Dr: Dr. Juli Rios MD Status: ADM YAMILET Ordering Dr: Werner Cassidy MD Date: 02/09/25 [place] [facility] [place] F C Admitted: 02/09/25 Test Reason : SOB Blood Pressure : */* mmHG Vent. Rate : 78 BPM Atrial Rate : 78 BPM P-R Int : 176 ms QRS Dur : 100 ms QT Int : 402 ms P-R-T Axes : 77 96 36 degrees QTcB Int : 458 ms Normal sinus rhythm Possible Left atrial enlargement Rightward axis Nonspecific ST abnormality Abnormal ECG Confirmed by Meet Heaton ([id number]), film editor supervisor CÉSAR ZALDIVAR ([id number]) on 02/10/2025 12:55:09 PM Referred By: Confirmed By: Meet Heaton 02/10/25 1255 Date Meet Heaton MD CC: Dr. Mariel Duke MD; Dr. Werner Cassidy MD; Dr. Juli Rios MD Signed Normal [facility] Basic Metabolic Profile (BMP )on 02-09-2025 BUN/CRE 10.0 RATIO Normal 10-20 [facility] Comment on above: Performed By: #### L 100.0100, L500.4100, L500.4050 #### [facility] [address] [place], [address] Calcium [Mass/Vol] 9.4 mg/dL Normal 7.6-11.0 [facility] Comment on above: Performed By: #### L 100.0100, L500.4100, L500.4050 #### [facility] [address] [place], [address] Chloride [Moles/Vol] 88 mmol/L Low 98-108 [place] Comment on above: Performed By: #### L 100.0100, L500.4100, L500.4050 #### [facility] [address] [place], [address] CO2 [Moles/Vol] 25.3 mmol/L Normal 21.0-32.0 [facility] Comment on above: Performed By: #### L 100.0100, L500.4100, L500.4050 #### [facility] [address] [place], [address] Creatinine [Mass/Vol] 0.41 mg/dL Low 0.70-1.20 [facility] Comment on above: Performed By: #### L 100.0100, L500.4100, L500.4050 #### [facility] [address] [place], [address] ECRCL 40.33 ml/min Low 50-250 [facility] Comment on above: Performed By: #### L 100.0100, L500.4100, L500.4050 #### [facility] [address] [place], [address] GAP 14 Normal 5-15 [facility] Comment on above: Performed By: #### L 100.0100, L500.4100, L500.4050 #### [facility] [address] [place], [address] GFR/1.73 sq M.predicted among non-blacks MDRD (S/P/Bld) [Vol rate/Area] 100 mL/min/{1.73_m2} Normal >60 [facility] Comment on above: Result Comment: mL/m in/1.73m2 CKD-EPI Creatinine Equation (2020) Performed By: #### L 100.0100, L500.4100, L500.4050 #### [facility] [address] [place], [address] Glucose [Mass/Vol] 110 mg/dL High 70-99 [facility] Comment on above: Performed By: #### L 100.0100, L500.4100, L500.4050 #### [facility] [address] [place], [address] Potassium [Moles/Vol] 4.3 mmol/L Normal 3.3-5.1 [facility] Comment on above: Performed By: #### L 100.0100, L500.4100, L500.4050 #### [facility] [address] [place], [address] Sodium [Moles/Vol] 128 mmol/L Low 133-145 [facility] Comment on above: Performed By: #### L 100.0100, L500.4100, L500.4050 #### [facility] [address] [place], [address] Urea nitrogen [Mass/Vol] 4 mg/dL Normal 4-19 [facility] Comment on above: Performed By: #### L 100.0100, L500.4100, L500.4050 #### [facility] [address] [place], [address] CBC W/Diff, Automatedon 11-0 2-2024 Absolute Lymph 2.36 X10 3/uL Normal 0.83-4.51 [facility] Comment on above: Performed By: #### L 100.0100, L500.4100, L500.4050 #### [facility] [address] [place], [address] Absolute Neut 8.5 X10 3/uL High 2.0-7.7 [facility] Comment on above: Performed By: #### L 100.0100, L500.4100, L500.4050 #### [facility] [address] [place], [address] Basophils/100 WBC (Bld) 0.6 % Normal 0-1 [facility] Comment on above: Performed By: #### L 100.0100, L500.4100, L500.4050 #### [facility] [address] [place], [address] Eosinophils/100 WBC (Bld) 1.6 % Normal 0-5 [facility] Comment on above: Performed By: #### L 100.0100, L500.4100, L500.4050 #### [facility] [address] [place], [address] Erythrocyte distribution width (RBC) [Ratio] 13.4 % Normal 11.6-14.6 [facility] Comment on above: Performed By: #### L 100.0100, L500.4100, L500.4050 #### [facility] [address] [place], [address] Hematocrit (Bld) [Volume fraction] 43.7 % Normal 37-47 [facility] Comment on above: Performed By: #### L 100.0100, L500.4100, L500.4050 #### [facility] [address] [place], [address] Hemoglobin (Bld) [Mass/Vol] 15.0 g/dL Normal 12.0-15.0 [facility] Comment on above: Performed By: #### L 100.0100, L500.4100, L500.4050 #### [facility] [address] [place], [address] IG% 0.400 Normal 0.0-0.9 [facility] Comment on above: Result Comment: IG% - Immature Granulocytes (promyelocytes, myelocytes and metamyelocytes) > 1% indicates that a LEFT SHIFT is Present. Performed By: #### L 100.0100, L500.4100, L500.4050 #### [facility] [address] [place], [address] Lymphocytes/100 WBC (Bld) 18.9 % Low 19-41 [facility] Comment on above: Performed By: #### L 100.0100, L500.4100, L500.4050 #### [facility] [address] [place], [address] MCH (RBC) [Entitic mass] 29.9 pg Normal 27.0-32.0 [facility] Comment on above: Performed By: #### L 100.0100, L500.4100, L500.4050 #### [facility] [address] [place], [address] MCHC (RBC) [Mass/Vol] 34.3 g/dL Normal 32-36 [facility] Comment on above: Performed By: #### L 100.0100, L500.4100, L500.4050 #### [facility] [address] [place], [address] MCV (RBC) [Entitic vol] 87.2 fL Normal 81-99 [facility] Comment on above: Performed By: #### L 100.0100, L500.4100, L500.4050 #### [facility] [address] [place], [address] Monocytes/100 WBC (Bld) 10.5 % High 0-10 [facility] Comment on above: Performed By: #### L 100.0100, L500.4100, L500.4050 #### [facility] [address] [place], [address] Neutrophils/100 WBC (Bld) 68.0 % Normal 47-70 [facility] Comment on above: Performed By: #### L 100.0100, L500.4100, L500.4050 #### [facility] [address] [place], [address] Nucleated RBC (Bld) [#/Vol] 0 10*3/uL Normal 0-5 [facility] Comment on above: Performed By: #### L 100.0100, L500.4100, L500.4050 #### [facility] [address] [place], [address] Platelet mean volume (Bld) [Entitic vol] 9.5 fL Normal 6.2-12.0 [facility] Comment on above: Performed By: #### L 100.0100, L500.4100, L500.4050 #### [facility] [address] [place], [address] Platelets (Bld) [#/Vol] 368 10*3/uL Normal 150-450 [facility] Comment on above: Performed By: #### L 100.0100, L500.4100, L500.4050 #### [facility] [address] [place], [address] RBC (Bld) [#/Vol] 5.01 10*6/uL Normal 4.2-5.4 [facility] Comment on above: Performed By: #### L 100.0100, L500.4100, L500.4050 #### [facility] [address] [place], [address] RDW SD 43.1 fl Normal 35.1-43.9 [facility] Comment on above: Performed By: #### L 100.0100, L500.4100, L500.4050 #### [facility] [address] [place], [address] WBC (Bld) [#/Vol] 12.5 10*3/uL High 4.4-11.0 [facility] Comment on above: Performed By: #### L 100.0100, L500.4100, L500.4050 #### [facility] [address] [place], [address] Chest PA and Lateralon 02-09 Chest PA and Lateral [facility] [address] [place] [address] Chest PA and Lateral MR#: [id number] Acct: [id number] Name: RADHA ATKINSON Rep #: [id number] : 1945 F 79 From: Jluis Arora MD PCP: Dr. Mariel Duke MD Status: PRE ER Study: Chest PA and Lateral Date of Exam: 02/09/25 Exam# [id number] Ordering Dr: Werner Cassidy MD PROCEDURE: CHEST PA AND LATERAL 02/09/2025 REASON FOR EXAM: COUGH TECHNIQUE: Procedure Code: RADCXR Modality: DX Procedure: CHEST PA AND LATERAL COMPARISON: None FINDINGS: Heart: The heart size is normal. Mediastinum: There are atherosclerotic calcifications of the thoracic aorta. Lungs: Surgical tapan in the left upper lung zone. There is opacity projecting posteriorly over the spine on the lateral view. Prominent interstitial markings diffusely. Bones: Degenerative changes are identified within the thoracic spine. Diffuse osteopenia. RAD/Chest PA and Lateral IMPRESSION: 1. Opacity in the posterior lungs on the lateral view could represent infection or atelectasis. Alternatively, this may be artifactual due to obliquity of patient positioning. 2. Diffusely prominent interstitial markings could represent infection/inflammation or pulmonary edema. Reading Location: [id number] CC: Dr. Mariel Duke MD; Dr. Werner Cassidy MD Gas Substation Operator: Signed Normal [facility] Emergency Department Summary on 02-09-2025 Emergency Department Summary [facility] Medical Records Department [address] [place] [address] Emergency Department Summary 02/09/25 MR#: [id number] Acct: [id number] Name: RADHA ATKINSON Rep #: [id number] : 1945 79 From: Werner Cassidy MD PCP: Dr. Mariel Duke MD Status:REG ER Location: ED HPI History of Present Illness Chief Complaint: Shortness of Breath Informant: patient Onset/Context/Timing Onset: Today and Yesterday Context: gradual Timing: Continuous Quality: Positive for Dyspnea on exertion and Wheezing Current Severity: Moderate Worsened by: Exertion and Coughing Relieved by: Nothing Associated Symptoms cough and clear sputum Chest Pain: Positive for None Narrative Narrative: 79-year-old female history of COPD prior lung cancer that being resected. Not on oxygen at home. States she recently URI over the last week. Started having wheezing and shortness of breath yesterday and today. Clear sputum. No chest pain. No hemoptysis. No leg pain or swelling. No history of DVT or PE or risk factors. Denies any fever. PE Risk Factors: Positive for Cancer (Prior lung cancer history resected.); Negative for Prior DVT or PE, Recent immobilization, Recent surgery or Recent travel Prior similar symptoms: Yes Recent Illness/Hospitalizatio n: No [facility] Medical History COPD (chronic obstructive pulmonary disease) Lung cancer Anxiety Home Medications ???Medication ???Instructions ???Recorded ???Last Taken ???Type fluticasone fur. 200 mcg-umeclid 1 ea inhalation DAILY 02/09/25 Unk nown History 62.5 mcg-vilant 25 mcg inhalat.powder (Trelegy Ellipta) lorazepam 0.5 mg tablet 0.5 mg PO BID PRN PRN anxiety 06/04 Unknown History Allergy/AdvReac Type Severity Reaction Status Date / Time fentanyl Allergy Intermediate Rash Verified 02/09/25 18:23 Social History Smoking Status: Current every day smoker tobacco type: cigarettes ROS ROS ED ROS Narrative Cough. Clear sputum. No chest pain. No fever. Shortness of breath. Wheezing. Constitutional Constitutional ED: Denies chills or fever(s) Eyes Eyes: Denies blurry vision ENT ENT ED: Denies ear pain Cardiovascular Cardiovascular: Denies chest pain or palpitations Respiratory/Chest Respiratory/Chest: Reports cough, dyspnea and sputum Gastrointestinal Gastrointestinal: Denies abdominal pain Genitourinary Genitourinary ED: Denies dysuria or hematuria Musculoskeletal Musculoskeletal: Denies arthralgias Integumentary Denies abscess Neurologic Neurologic: Denies headache(s) Psychiatric Psychiatric: Denies anxiety or depression Hematologic/Lymphatic Hematologic/Lymphatic: Denies easy bleeding, easy bruising or lymphadenopathy Allergic/Immunologic Allergic/Immunologic ED: Denies mouth swelling, tongue swelling or urticaria EXAM Physical Exam Narrative Exam Narrative: 79-year-old female sitting upright in bed. She is tachycardic. Pulse ox 96% on room air no signs of hypoxia. H EENT exam pupils round react light. Moist mutes membranes. Neck nontender. No JVD. No lymphadenopathy. Back nontender. Lungs prolonged expiratory phase. Expiratory wheezing. Coarse breath sounds. No rhonchi. No rales. Heart tachycardic 110 no murmur. Chest wall ribs nontender. Cachectic. Abdomen soft nontender normal bowel sounds without peritoneal signs. Moving all 4 extremities. Equal printing film stripper strength. Dorsi plantarflexion intact. Calves are nontender without edema or cords. Neurologically she is awake and alert. Answering questions following commands. No focal motor deficits. Const Vital Signs: 02/09/25 18:23 02/09/25 19:34 02/09/25 20:05 Temperature 97 F L Temperature Source Temporal Pulse Rate 120 H 90 Respiratory Rate 26 H 18 Respiratory Effort Respiratory Depth Respiratory Pattern Normal Blood Pressure 151/117 H Blood Pressure Mean 128 Pulse Ox 96 Oxygen Delivery Method Room Air Room Air 02/09/25 20:05 02/09/25 20:05 02/09/25 20:23 Temperature Temperature Source Pulse Rate 97 Respiratory Rate 20 H 14 Respiratory Effort Short of Breath Respiratory Depth Shallow Respiratory Pattern Tachypnea Blood Pressure 151/129 H Blood Pressure Mean 136 Pulse Ox 98 96 Oxygen Delivery Method Room Air Room Air 02/09/25 22:00 Temperature Temperature Source Pulse Rate 97 Respiratory Rate 25 H Respiratory Effort Respiratory Depth Respiratory Pattern Blood Pressure 137/57 H Blood Pressure Mean 83 Pulse Ox 92 Oxygen Delivery Method Room Air MDM MDM MDM Narrative Medical decision making narrative: 79-year-old female recent URI with COPD clinically and historically seems (more content not included)... Normal [facility] H AND P Exam - Hospitaliston 02-09-2025 H&P Exam - Hospitalist [facility] Medical Records Department [address] [place] [address] H P Exam - Hospitalist 02/09/25 2300 MR#: [id number] Acct: [id number] Name: RADHA ATKINSON Rep #: [id number] : 1945 79 From: Zeinab Ramires MD PCP: Dr. Mariel Duke MD Status:REG ER Location: ED HPI - General General Date of Admission: 02/09/25 Date of Service: 02/09/25 Chief Complaint: Dyspnea, wheezing, cough, URI symptoms. HPI Narrative The patient is a 79 y/o F w/ PMHx: Heavy EtOH use, Severe protein calorie malnutrition, Hx Lung CA unclear type status post focal resection per her reports in remission, Anxiety, COPD, Tobacco use who presents to the [facility] ED on 02/09/2025 with onset over the last 48 hours progressively worsening dyspnea more so with exertion with wheezing in addition to coughing with URI over the last week with mild yellow sputum, congestion, rhinorrhea with no specific fevers or chills but given worsening dyspnea and wheezing prompted eventual ED evaluation be cautious. Workup in the ED included T97, heart rate 120, BP 151/117, respiratory rate 26, 96% on room air with most recent repeat vitals heart rate 97, BP 137/57, respiratory rate 25, 92% on room air, CBC with WC 12.5, hemoglobin 15, platelets 368 with left shift, BMP with sodium 128, chloride 88, BUN/creatinine 4/0.41, GFR 100, glucose 100, troponin initial 11, repeat delta 16, chest x-ray with opacity in the posterior lungs in the lateral view possibly infectious versus atelectasis versus artifact due to oblique patient positioning, diffusely prominent interstitial markings event representative of possibly infection/inflammatory . In the ED patient ministered Solu-Medrol 125 mg IV x 1, albuterol, DuoNeb therapy and azithromycin 500 mg IV x 1. [facility] Medical History Chronic hyponatremia Heavy alcohol use Severe protein-calorie malnutrition History of lung cancer Tobacco use COPD (chronic obstructive pulmonary disease) Anxiety Home Medications ???Medication ???Instructions ???Recorded ???Last Taken ???Type fluticasone fur. 200 mcg-umeclid 1 ea inhalation DAILY 02/09/25 Unk nown History 62.5 mcg-vilant 25 mcg inhalat.powder (Trelegy Ellipta) lorazepam 0.5 mg tablet 0.5 mg PO BID PRN PRN anxiety 06/04 Unknown History Allergy/AdvReac Type Severity Reaction Status Date / Time fentanyl Allergy Intermediate Rash Verified 02/09/25 18:23 Family History (Updated 02/09/25 @ 23:[address] Zeinab Ramires MD) Mother Hemorrhagic shock Unclear exact situation but patient reports following significant vaginal bleeding event approximately 6 months following of a child. Father Heart disease Hypertension Surgical History (Updated 02/09/25 @ 23:[address] Zeinab Ramires MD) History of tonsillectomy and adenoidectomy History of lung surgery Social History (Updated 02/09/25 @ 23:[address] Zeinab Ramires MD) household members: none Smoking Status: Current every day smoker tobacco type: cigarettes Smoking packs per day: 0.5 Smoking cigarettes per day: 10.0 alcohol intake: current alcohol intake frequency: 3 or more drinks per day Alcohol type: beer details: 3-5 beers daily. substance use type: does not use ROS ROS Narrative Admission Review of Systems: CONSTITUTIONAL: No weight loss, fever, chills, + weakness or fatigue. HEENT: + Mild congestion, rhinorrhea. Eyes: No visual loss, blurred vision, double vision or yellow sclerae. Ears, Nose, Throat: No hearing loss, sneezing, sore throat. SKIN: No rash or itching, lesions, wounds except + occasional ecchymoses, abrasion. CARDIOVASCULAR: No chest pain, chest pressure or chest discomfort, palpitations, edema, orthopnea, syncopal events. RESPIRATORY: + Dyspnea, wheezing, mildly productive cough. No hemoptysis. GASTROINTESTINAL: + Anorexia. No nausea, vomiting or diarrhea, abdominal pain, melena, BRBPR. GENITOURINARY: No dysuria, frequency, urgency or retention. NEUROLOGICAL: No headache, dizziness, syncope, paralysis, ataxia, numbness or tingling in the extremities, focal weakness, change in bowel or bladder control, seizure. MUSCULOSKELETAL: + muscle, back pain, joint pain or stiffness. HEMATOLOGIC: No anemia, bleeding or bruising. LYMPHATICS: No enlarged nodes. No history of splenectomy. PSYCHIATRIC: + History of anxiety. ENDOCRINOLOGIC: No reports of sweating, cold or heat intolerance. No polyuria or polydipsia. ALLERGIES: No history of asthma, hives, eczema or rhinitis. Vital Signs Vital Signs Vital Signs: 02/09/25 18:23 02/09/25 19:34 02/09/25 20:05 Temperature 97 F L Temperature Source Temporal Pulse Rate 120 H 90 Respiratory Rate 26 H 18 Respiratory Effort Respiratory Depth Respiratory Pattern Normal Blood Pressure (more content not included)... Normal [facility] L501.4021on 02-09-2025 Trop T High Sen 11 ng/L Normal <=14 [facility] Comment on above: Performed By: #### L 100.0100, L500.4100, L500.4050 #### [facility] [address] [place], [address] Troponin T HS 2 HRon 025 Trop T High Sen 16 ng/L High <=14 [facility] Comment on above: Performed By: #### L 100.0100, L500.4100, L500.4050 #### [facility] [address] [place], [address] Troponin T HS 4 HRon 025 Trop T High Sen 17 ng/L High <=14 [facility] Comment on above: Performed By: #### L 100.0100, L500.4100, L500.4050 #### [facility] [address] [place], [address] Anion gap in Serum or Plasma Ordered By: Mariel Duke on 09-03-2024 Anion gap [Moles/Vol] 13 mmol/L 08-22 [facility] BUN/creatinine ratioOrdered By: Mariel Duke on 09-03-2024 Urea nitrogen/Creatinine [Mass ratio] 11.8 mg/mg 01-27 [facility] Basic Metabolic Profile (BMP )on 09-03-2024 BUN/CRE 11.8 RATIO Normal 01-27 [facility] Comment on above: Performed By: #### L 500.2500 #### [facility] [address] [place], [address] Calcium [Mass/Vol] 9.2 mg/dL Normal 7.6-11.0 [facility] Comment on above: Performed By: #### L 500.2500 #### [facility] [address] [place], [address] Chloride [Moles/Vol] 96 mmol/L Low 98-108 [place] Comment on above: Performed By: #### L 500.2500 #### [facility] [address] [place], [address] CO2 [Moles/Vol] 23.7 mmol/L Normal 21.0-32.0 [facility] Comment on above: Performed By: #### L 500.2500 #### [facility] [address] [place], [address] Creatinine [Mass/Vol] 0.52 mg/dL Low 0.70-1.20 [facility] Comment on above: Performed By: #### L 500.2500 #### [facility] [address] [place], [address] GAP 13 Normal 5-15 [facility] Comment on above: Performed By: #### L 500.2500 #### [facility] [address] [place], [address] GFR/1.73 sq M.predicted among non-blacks MDRD (S/P/Bld) [Vol rate/Area] 95 mL/min/{1.73_m2} Normal >60 [facility] Comment on above: Result Comment: mL/m in/1.73m2 CKD-EPI Creatinine Equation (2020) Performed By: #### L 500.2500 #### [facility] [address] [place], [address] Glucose [Mass/Vol] 101 mg/dL High 70-99 [facility] Comment on above: Performed By: #### L 500.2500 #### [facility] [address] [place], [address] Potassium [Moles/Vol] 4.6 mmol/L Normal 3.3-5.1 [facility] Comment on above: Performed By: #### L 500.2500 #### [facility] [address] [place], [address] Sodium [Moles/Vol] 132 mmol/L Low 133-145 [facility] Comment on above: Performed By: #### L 500.2500 #### [facility] [address] [place], [address] Urea nitrogen [Mass/Vol] 6 mg/dL Normal 4-19 [facility] Comment on above: Performed By: #### L 500.2500 #### [facility] [address] [place], [place], [phone] ([phone]) Carbon dioxide, total [Moles /volume] in Central venous bloodOrdered By: Mariel Duke on 09-03-2024 CO2 [Moles/Vol] 23.7 mmol/L 21.0-32.0 [facility] Chloride assayOrdered By: David Duke on 09-03-2024 Chloride [Moles/Vol] 96 mmol/L Low 98-108 [place] Glomerular filtration rate ( GFR) estimation/1.73 sq m using serum, plasma, or whole bOrdered By: Mariel Duke on 09-03-2024 GFR/1.73 sq M.predicted among non-blacks MDRD (S/P/Bld) [Vol rate/Area] 95 mL/min/{1.73_m2} >60 [facility] Comment on above: mL/min/1.73m2 CKD-EP I Creatinine Equation (2020) Potassium measurement (mass/ volume)Ordered By: Mariel Duke on 09-03-2024 Potassium (Unsp spec) [Mass/Vol] 4.6 mmol/L 3.3-5.1 [facility] Serum creatinine measurement (mass/volume)Ordered By: Mariel Duke on 09-03-2024 Creatinine [Mass/Vol] 0.52 mg/dL Low 0.70-1.20 [facility] Serum glucose measurement (m ass/volume)Ordered By: Mariel Duke on 09-03-2024 Glucose [Mass/Vol] 101 mg/dL High 70-99 [facility] Serum or plasma calcium ellis urement (mass/volume)Ordered By: Mariel Duke on 09-03-2024 Calcium [Mass/Vol] 9.2 mg/dL 7.6-11.0 [facility] Serum or plasma urea nitroge n measurement (mass/volume)Ordered By: Mariel Duke on 09-03-2024 Urea nitrogen [Mass/Vol] 6 mg/dL 4-19 [facility] Sodium levelOrdered By: Landry Duke on 09-03-2024 Sodium [Moles/Vol] 132 mmol/L Low 133-145 [facility] Absolute lymphocyte countOrd ered By: Mariel Duke on 08-19-2024 Lymphocytes Auto (Unsp spec) [#/Vol] 2.20 10*3/uL 0.83-4.51 [facility] Absolute neutrophil countOrd ered By: Mariel Duke on 08-19-2024 Neutrophils (Bld) [#/Vol] 6.1 10*3/uL 2.0-7.7 [facility] Anion gap in Serum or Plasma Ordered By: Mariel Duke on 08-19-2024 Anion gap [Moles/Vol] 13 mmol/L 5-15 [facility] Automated blood erythrocyte countOrdered By: Mariel Duke on 08-19-2024 RBC (Bld) [#/Vol] 4.90 10*6/uL Normal 4.2-5.4 [facility] Comment on above: Order Comment: Order Date: 08/19/24 Order Info: [id number] - CBCD Performed By: #### L 100.0100, L500.9740, L500.4050 #### [facility] [address] [place], [place], [address] Automated blood hematocrit ( percentage)Ordered By: Mariel Duke on 08-19-2024 Hematocrit (Bld) [Volume fraction] 44.8 % Normal 37-47 [facility] Comment on above: Order Comment: Order Date: 08/19/24 Order Info: [id number] - CBCD Performed By: #### L 100.0100, L500.4100, L500.4050 #### [facility] [address] [place], [place], [id number] Automated lymphocyte count a s percentage of total leukocytesOrdered By: Mariel Duke on 08-19-2024 Lymphocytes/100 WBC Auto (Unsp spec) 23.8 % - [facility] BUN/creatinine ratioOrdered By: Mariel Duke on 08-19-2024 Urea nitrogen/Creatinine [Mass ratio] 12.1 mg/mg 10- [facility] Basophil percentageOrdered B y: Mariel Duke on 08-19-2024 Basophils/100 WBC (Bld) 0.9 % Normal 0-1 [facility] Comment on above: Order Comment: Order Date: 08/19/24 Order Info: [id number]- - CBCD Performed By: #### L 100.0100, L500.4100, L500.4050 #### [facility] [address] [place], [place], [phone] Bilirubin, totalOrdered By: Mariel Duke on 08-19-2024 Bilirubin [Mass/Vol] 0.31 mg/dL Normal 0.00-1.30 [place] Comment on above: Order Comment: Order Date: 08/19/24 Order Info: [id number] - CMP Order Info: [id number] - LIPID Performed By: #### L 100.0100, L500.4100, L500.4050 #### [facility] [address] [place], [address] CBC W/Diff, Automatedon 08-08 Absolute Lymph 2.20 X10 3/uL Normal 0.83-4.51 [facility] Comment on above: Order Comment: Order Date: 08/19/24 Order Info: [id number] - CBCD Performed By: #### L 100.0100, L500.4100, L500.4050 #### [facility] [address] [place], [address] Absolute Neut 6.1 X10 3/uL Normal 2.0-7.7 [facility] Comment on above: Order Comment: Order Date: 08/19/24 Order Info: [id number] - CBCD Performed By: #### L 100.0100, L500.4100, L500.4050 #### [facility] [address] [place], [address] IG% 0.600 Normal 0.0-0.9 [facility] Comment on above: Order Comment: Order Date: 08/19/24 Order Info: [id number]- - CBCD Result Comment: IG% - Immature Granulocytes (promyelocytes, myelocytes and metamyelocytes) > 1% indicates that a LEFT SHIFT is Present. Performed By: #### L 100.0100, L500.4100, L500.4050 #### [facility] [address] [place], [address] Lymphocytes/100 WBC (Bld) 23.8 % Normal 19-41 [facility] Comment on above: Order Comment: Order Date: 08/19/24 Order Info: [id number]- - CBCD Performed By: #### L 100.0100, L500.4100, L500.4050 #### [facility] [address] [place], [address] Nucleated RBC (Bld) [#/Vol] 0 10*3/uL Normal 0-5 [facility] Comment on above: Order Comment: Order Date: 08/19/24 Order Info: [id number]- - CBCD Performed By: #### L 100.0100, L500.4100, L500.4050 #### [facility] [address] [place], [address] RDW SD 47.8 fl High 35.1-43.9 [facility] Comment on above: Order Comment: Order Date: 08/19/24 Order Info: [id number] - CBCD Performed By: #### L 100.0100, L500.4100, L500.4050 #### [facility] [address] [place], [address] Calculated very low density lipoprotein (VLDL) cholesterol measurementOrdered By: Mariel Duke on 08-19-2024 Calculated very low density lipoprotein (VLDL) cholesterol measurement 21 mg/dL 5-40 [facility] Carbon dioxide, total [Moles /volume] in Central venous bloodOrdered By: Mariel Duke on 08-19-2024 CO2 [Moles/Vol] 23.0 mmol/L Normal 21.0-32.0 [facility] Comment on above: Order Comment: Order Date: 08/19/24 Order Info: 0786-1 - CMP Order Info: [id number] - LIPID Performed By: #### L 100.0100, L500.4100, L500.4050 #### [facility] [address] [place], [address] Chloride assayOrdered By: David Duke on 08-19-2024 Chloride [Moles/Vol] 96 mmol/L Low 98-108 [place] Comment on above: Order Comment: Order Date: 08/19/24 Order Info: 0786-1 - CMP Order Info: [id number] - LIPID Performed By: #### L 100.0100, L500.4100, L500.4050 #### [facility] [address] [place], [address] Comprehensive Metabolic Prof ilon 08-19-2024 ALK PHOS 80 U/L Normal 35-104 [facility] Comment on above: Order Comment: Order Date: 08/19/24 Order Info: [id number] - CMP Order Info: [id number] - LIPID Performed By: #### L 100.0100, L500.4100, L500.4050 #### [facility] [address] [place], [address] BUN/CRE 12.1 RATIO Normal 10-20 [facility] Comment on above: Order Comment: Order Date: 08/19/24 Order Info: 0786-1 - CMP Order Info: [id number] - LIPID Performed By: #### L 100.0100, L500.4100, L500.4050 #### [facility] [address] [place], [address] GAP 13 Normal 5-15 [facility] Comment on above: Order Comment: Order Date: 08/19/24 Order Info: 0786-1 - CMP Order Info: [id number] - LIPID Performed By: #### L 100.0100, L500.4100, L500.4050 #### [facility] [address] [place], [address] Potassium [Moles/Vol] 4.4 mmol/L Normal 3.3-5.1 [facility] Comment on above: Order Comment: Order Date: 08/19/24 Order Info: [id number] - CMP Order Info: [id number] - LIPID Performed By: #### L 100.0100, L500.4100, L500.4050 #### [facility] [address] [place], [address] T PROT 7.0 g/dL Normal 5.9-8.4 [facility] Comment on above: Order Comment: Order Date: 08/19/24 Order Info: 0786-1 - CMP Order Info: [id number] - LIPID Performed By: #### L 100.0100, L500.4100, L500.4050 #### [facility] [address] [place], [address] Comprehensive Metabolic Prof ilOrdered By: Mariel Duke on 08-19-2024 AST [Catalytic activity/Vol] 16 U/L Normal <=31 [facility] Comment on above: Order Comment: Order Date: 08/19/24 Order Info: 0786-1 - CMP Order Info: [id number] - LIPID Performed By: #### L 100.0100, L500.4100, L500.4050 #### [facility] [address] [place], [place], [id number] Eosinophil percentageOrdered By: Mariel Duke on 08-19-2024 Eosinophils/100 WBC (Bld) 1.5 % Normal 0-5 [facility] Comment on above: Order Comment: Order Date: 08/19/24 Order Info: [id number] - CBCD Performed By: #### L 100.0100, L500.4100, L500.4050 #### [facility] [address] [place], [place], [address] Erythrocyte distribution wid th ratioOrdered By: Mariel Duke on 08-19-2024 Erythrocyte distribution width (RBC) [Ratio] 14.3 % Normal 11.6-14.6 [facility] Comment on above: Order Comment: Order Date: 08/19/24 Order Info: [id number] - CBCD Performed By: #### L 100.0100, L500.4100, L500.4050 #### [facility] [address] [place], [place], [id number] Erythrocyte distribution wid th standard deviationOrdered By: Mariel Duke on 08-19-2024 Erythrocyte distribution width (RBC) [Ratio] 47.8 fl High 35.1-43.9 [facility] Glomerular filtration rate ( GFR) estimation/1.73 sq m using serum, plasma, or whole bOrdered By: Mariel Duke on 08-19-2024 GFR/1.73 sq M.predicted among non-blacks MDRD (S/P/Bld) [Vol rate/Area] 97 mL/min/{1.73_m2} Normal >60 [facility] Comment on above: mL/min/1.73m2 CKD-EP I Creatinine Equation (2020) Order Comment: Order Date: 08/19/24 Order Info: [id number] - CMP Order Info: [id number] - LIPID Result Comment: mL/m in/1.73m2 CKD-EPI Creatinine Equation (2020) Performed By: #### L 100.0100, L500.4100, L500.4050 #### [facility] [address] [place], [address] Hemoglobin measurementOrdere d By: Mariel Duke on 08-19-2024 Hemoglobin (Bld) [Mass/Vol] 14.8 g/dL Normal 12.0-15.0 [facility] Comment on above: Order Comment: Order Date: 08/19/24 Order Info: [id number] - CBCD Performed By: #### L 100.0100, L500.4100, L500.4050 #### [facility] [address] [place], [address] Immature granulocytes/100 WB C Auto (Bld)Ordered By: Mariel Duke on 08-19-2024 Immature granulocytes/100 WBC (Bld) 0.600 % 0.0-0.9 [facility] Comment on above: IG% - Immature Granu locytes (promyelocytes, myelocytes and metamyelocytes) > 1% indicates that a LEFT SHIFT is Present. LDL calc ser/plasOrdered By: Mariel Duke on 08-19-2024 Cholesterol in LDL [Mass/Vol] 127 mg/dL Normal [facility] Comment on above: Vmcxbocsrt=717-089 m g/dL & Higher Etau=211 mg/dL or greater Order Comment: Order Date: 08/19/24 Order Info: 0786-1 - CMP Order Info: [id number] - LIPID Result Comment: Bord zlisfw=221-437 mg/dL Higher Srsb=207 mg/dL or greater Performed By: #### L 100.0100, L500.4100, L500.4050 #### [facility] [address] [place], [address] Lipid Profileon 08-19-2024 CHOL:HDL 3.60 Normal [facility] Comment on above: Order Comment: Order Date: 08/19/24 Order Info: 0786-1 - CMP Order Info: [id number] - LIPID Performed By: #### L 100.0100, L500.4100, L500.4050 #### [facility] [address] [place], [address] Cholesterol in VLDL [Mass/Vol] 21 mg/dL Normal 5-40 [facility] Comment on above: Order Comment: Order Date: 08/19/24 Order Info: [id number] - CMP Order Info: [id number] - LIPID Performed By: #### L 100.0100, L500.4100, L500.4050 #### [facility] [address] [place], [address] MCV (mean corpuscular volume ) determinationOrdered By: Mariel Duke on 08-19-2024 MCV (RBC) [Entitic vol] 91.4 fL Normal 81-99 [facility] Comment on above: Order Comment: Order Date: 08/19/24 Order Info: [id number] - CBCD Performed By: #### L 100.0100, L500.4100, L500.4050 #### [facility] [address] [facility] [place], [address] Mean corpuscular hemoglobin (MCH) determinationOrdered By: Mariel Duke on 08-19-2024 MCH (RBC) [Entitic mass] 30.2 pg Normal 27.0-32.0 [facility] Comment on above: Order Comment: Order Date: 08/19/24 Order Info: [id number] - CBCD Performed By: #### L 100.0100, L500.4100, L500.4050 #### [facility] [address] [place], [address] Mean corpuscular hemoglobin concentration (MCHC) determinationOrdered By: Mariel Leilani on 08-19-2024 MCHC (RBC) [Mass/Vol] 33.0 g/dL Normal 32-36 [facility] Comment on above: Order Comment: Order Date: 08/19/24 Order Info: [id number] - CBCD Performed By: #### L 100.0100, L500.4100, L500.4050 #### [facility] [address] [facility] [address] [place], [place], [address] Mean platelet volume determi nationOrdered By: Mariel Duke on 08-19-2024 Platelet mean volume (Bld) [Entitic vol] 10.3 fL Normal 6.2-12.0 [facility] Comment on above: Order Comment: Order Date: 08/19/24 Order Info: [id number]- - CBCD Performed By: #### L 100.0100, L500.4100, L500.4050 #### [facility] [address] [place], [place], [address] Monocyte percentageOrdered B y: Mariel Duke on 08-19-2024 Monocytes/100 WBC (Bld) 7.1 % Normal 0-10 [facility] Comment on above: Order Comment: Order Date: 08/19/24 Order Info: [id number] - CBCD Performed By: #### L 100.0100, L500.4100, L500.4050 #### [facility] [address] [place], [place], [address] Neutrophil percentageOrdered By: Mariel Duke on 08-19-2024 Neutrophils/100 WBC (Bld) 66.1 % Normal 47-70 [facility] Comment on above: Order Comment: Order Date: 08/19/24 Order Info: [id number]- - CBCD Performed By: #### L 100.0100, L500.4100, L500.4050 #### [facility] [address] [place], [address] Nucleated red blood cell per centageOrdered By: Mariel Duke on 08-19-2024 Nucleated RBC/100 WBC (Bld) [Ratio] 0 % 0-5 [facility] Platelet countOrdered By: David Duke on 08-19-2024 Platelets (Bld) [#/Vol] 493 10*3/uL High 150-450 [facility] Comment on above: Order Comment: Order Date: 08/19/24 Order Info: [id number]- - CBCD Performed By: #### L 100.0100, L500.4100, L500.4050 #### [facility] [address] [place], [place], [id number] Potassium measurement (mass/ volume)Ordered By: Mariel Duke on 08-19-2024 Potassium (Unsp spec) [Mass/Vol] 4.4 mmol/L 3.3-5.1 [facility] Screening total cholesterol/ high density lipoprotein (HDL) cholesterol ratioOrdered By: Mariel Duke on 08-19-2024 Cholesterol.total/Choles terol in HDL [Mass ratio] 3.60 {ratio} [facility] Serum creatinine measurement (mass/volume)Ordered By: Mariel Duke on 08-19-2024 Creatinine [Mass/Vol] 0.48 mg/dL Low 0.70-1.20 [facility] Comment on above: Order Comment: Order Date: 08/19/24 Order Info: 0786-1 - CMP Order Info: [id number] - LIPID Performed By: #### L 100.0100, L500.4100, L500.4050 #### [facility] [address] [facility] [place], [address] Serum globulin measurementOr dered By: Mariel Duke on 08-19-2024 Globulin (S) [Mass/Vol] 2.7 g/dL Normal 2.2-4.2 [facility] Comment on above: Order Comment: Order Date: 08/19/24 Order Info: [id number] - CMP Order Info: [id number] - LIPID Performed By: #### L 100.0100, L500.4100, L500.4050 #### [facility] [address] [place], [place], [address] Serum glucose measurement (m ass/volume)Ordered By: Mariel Duke on 08-19-2024 Glucose [Mass/Vol] 86 mg/dL Normal 70-99 [facility] Comment on above: Order Comment: Order Date: 08/19/24 Order Info: 0786-1 - CMP Order Info: [id number] - LIPID Performed By: #### L 100.0100, L500.4100, L500.4050 #### [facility] [address] [place], [address] Serum or plasma alanine liriano otransferase (ALT) measurementOrdered By: Mariel Duke on 08-19-2024 ALT [Catalytic activity/Vol] 7 U/L Normal <=34 [facility] Comment on above: Order Comment: Order Date: 08/19/24 Order Info: 0786-1 - CMP Order Info: [id number] - LIPID Performed By: #### L 100.0100, L500.4100, L500.4050 #### [facility] [address] [place], [address] Serum or plasma albumin ellis urement (mass/volume)Ordered By: Mariel Duke on 08-19-2024 Albumin [Mass/Vol] 4.3 g/dL Normal 3.4-4.8 [facility] Comment on above: Order Comment: Order Date: 08/19/24 Order Info: 0786-1 - CMP Order Info: [id number] - LIPID Performed By: #### L 100.0100, L500.4100, L500.4050 #### [facility] [address] [place], [address] Serum or plasma albumin/glob ulin mass ratioOrdered By: Mariel Duke on 08-19-2024 Albumin/Globulin [Mass ratio] 1.6 {ratio} Normal 0.9-2.4 [facility] Comment on above: Order Comment: Order Date: 08/19/24 Order Info: [id number] - CMP Order Info: [id number] - LIPID Performed By: #### L 100.0100, L500.4100, L500.4050 #### [facility] [address] [place], [address] Serum or plasma alkaline erika sphatase measurementOrdered By: Mariel Duke on 08-19-2024 ALP [Catalytic activity/Vol] 80 U/L 35-104 [facility] Serum or plasma calcium ellis urement (mass/volume)Ordered By: Mariel Duke on 08-19-2024 Calcium [Mass/Vol] 9.3 mg/dL Normal 7.6-11.0 [facility] Comment on above: Order Comment: Order Date: 08/19/24 Order Info: 0786-1 - CMP Order Info: [id number] - LIPID Performed By: #### L 100.0100, L500.4100, L500.4050 #### [facility] [address] [place], [place], [id number] Serum or plasma cholesterol in HDL measurement (mass/volume)Ordered By: Mariel Duke on 08-19-2024 Cholesterol in HDL [Mass/Vol] 57 mg/dL Normal [facility] Comment on above: National Cholesterol Education Program (NCEP) guidelines:<40 mg/dL: Low HDL-cholesterol (major risk factor for CHD)>= 60 mg/dL: High HDL-cholesterol (negative risk factor for CHD)HDL-cholesterol is affected by a number of factors, e.g. smoking, exercise, hormones, sex and age. Order Comment: Order Date: 08/19/24 Order Info: 0786-1 - CMP Order Info: [id number] - LIPID Result Comment: Alexandrea onal Cholesterol Education Program (NCEP) guidelines: <40 mg/dL: Low HDL-cholesterol (major risk factor for CHD) >= 60 mg/dL: High HDL-cholesterol (negative risk factor for CHD) HDL-cholesterol is affected by a number of factors, e.g. smoking, exercise, hormones, sex and age. Performed By: #### L 100.0100, L500.4100, L500.4050 #### [facility] [address] [place], [address] Serum or plasma cholesterol measurement (mass/volume)Ordered By: Mariel Duke on 08-19-2024 Cholesterol [Mass/Vol] 204 mg/dL High <=200 [facility] Comment on above: Cholesterol level, D esirable <200 mg/dLBorderline high cholesterol 200-239 mg/dLHigh cholesterol >=240 mg/dLRecommendations of the NCEP Adult Treatment Panel for the following risk-cutoff thresholds for the [place] population. Order Comment: Order Date: 08/19/24 Order Info: 0786-1 - CMP Order Info: [id number] - LIPID Result Comment: Chol esterol level, Desirable <200 mg/dL Borderline high cholesterol 200-239 mg/dL High cholesterol >=240 mg/dL Recommendations of the NCEP Adult Treatment Panel for the following risk-cutoff thresholds for the [place] population. Performed By: #### L 100.0100, L500.4100, L500.4050 #### [facility] [address] [place], [address] Serum or plasma urea nitroge n measurement (mass/volume)Ordered By: Mariel Duke on 08-19-2024 Urea nitrogen [Mass/Vol] 6 mg/dL Normal 4-19 [facility] Comment on above: Order Comment: Order Date: 08/19/24 Order Info: 0786-1 - CMP Order Info: [id number] - LIPID Performed By: #### L 100.0100, L500.4100, L500.4050 #### [facility] [address] [place], [place], [id number] Sodium levelOrdered By: Landry Duke on 08-19-2024 Sodium [Moles/Vol] 132 mmol/L Low 133-145 [facility] Comment on above: Order Comment: Order Date: 08/19/24 Order Info: 0786-1 - CMP Order Info: [id number] - LIPID Performed By: #### L 100.0100, L500.4100, L500.4050 #### [facility] [address] [place], [place], [id number] Total proteinOrdered By: Sadie Duke on 08-19-2024 Protein [Mass/Vol] 7.0 g/dL 5.9-8.4 [facility] Triglycerides measurementOrd ered By: Mariel Duke on 08-19-2024 Triglyceride [Mass/Vol] 104 mg/dL Normal [facility] Comment on above: The drugs N-Acetylcy steine and Metamizole may falsely depress this assay. Normal range: <150 mg/dLBorderline High: 150-199 mg/dLHigh: 200-499 mg/dLVery High: >500 mg/dL Order Comment: Order Date: 08/19/24 Order Info: 0786-1 - CMP Order Info: [id number] - LIPID Result Comment: The drugs N-Acetylcysteine and Metamizole may falsely depress this assay. Normal range: <150 mg/dL Borderline High: 150-199 mg/dL High: 200-499 mg/dL Very High: >500 mg/dL Performed By: #### L 100.0100, L500.4100, L500.4050 #### [facility] [address] [place], [place], [address] Vitamin D,25 Hydroxyon 08-19 Vitamin D 25-OH 23.8 ng/mL Low 30-100 [facility] Comment on above: Order Comment: Order Date: 08/19/24 Order Info: 0786-1 - CMP Order Info: [id number] - LIPID Result Comment: Natividad min D Status Deficiency: <20 ng/mL (50nmol/L) Insufficiency: 20-30 ng/mL (50-75 nmol/L) Sufficiency: 30-100 ng/mL (75-250 nmol/L) Toxicity: >100 ng/mL (>250 nmol/L) Performed By: #### L 506.1001 #### [facility] [address] [place], [place], [address] White blood cell (WBC) count Ordered By: Mariel Duke on 08-19-2024 WBC (Bld) [#/Vol] 9.3 10*3/uL Normal 4.4-11.0 [facility] Comment on above: Order Comment: Order Date: 08/19/24 Order Info: [id number] - CBCD Performed By: #### L 100.0100, L500.4100, L500.4050 #### [facility] [address] [place], [place], [address] Basophil percentageOrdered B y: Mariel Duke on 06-19-2023 Basophil percentage < 1.0 mg/dL 0.55-1.02 [place] - Chemistry and C hemistry - challengeOrdered By: Mariel Duke on 06-19-2023 GFR/1.73 sq M.predicted among non-blacks MDRD (S/P/Bld) [Vol rate/Area] 60.0000 mL/min/{1.73_m2} >60 [facility] CT lung screeningon 08-18-19 CT lung screening [facility] [place] [address] [place], [place] [address] CT Scan Report Signed Patient: Radha Atkinson MR#: [id number] : 1945 Acct:[id number] Age/Sex: 76 / F ADM Date: 08/17/22 Loc: [facility][NOTE 3] Room: Type: [facility] Attending Dr: Indio Davidson MD Copies to: Indio Davidson MD Ordering Provider: Indio Davidson MD Date of Service: 08/17/22 CT/CT lung screening: J44.9 CT CHEST WITHOUT CONTRAST, LOW DOSE SCREENING: CLINICAL DATA: A 76-year old current smoker, smoking for 50 pack-years. History of lung cancer COMPARISON: Lung screening CT 06/24/2021 TECHNIQUE: Noncontrast axial CT scan images of the chest were obtained under the low dose screening CT protocol. Coronal and sagittal reconstructed images were also submitted. FINDINGS: Mediastinum : Suboptimal evaluation due to low-dose technique. Thoracic aorta appears normal in caliber. Pulmonary trunk appears nondilated. No pericardial effusion. No lymphadenopathy. The esophagus is grossly unremarkable. Lungs: No focal consolidation, pneumothorax or pleural effusion. Trachea and distal airways appear patent. Emphysematous changes. Diffuse bronchial wall thickening. Mild lung scarring. Postsurgical changes left lung. 3 mm noncalcified pulmonary nodule left upper lobe series 2 image 41. Upper abdomen: No acute findings. Bony thorax and chest wall: Soft tissues surrounding the chest wall demonstrate no acute findings. Osseous structures demonstrate degenerative change. CT/CT lung screening IMPRESSION: 3 MM NONCALCIFIED PULMONARY NODULE LEFT UPPER LOBE, NEW SINCE PRIOR LUNG SCREENING CT. LUNG - RADS Version 1.0 Assessment: Category 2, Benign appearance or behavior. Management: Continue annual lung screening with LDCT in 12 months. Impression dictated by: Grant Alexandra Jr., D.O.08/17/2022 2:33 PM Dictation Location: [place] [address] Transcribed By: RC 08/17/221432 Dictated By: Grant Alexandra Jr, DO 08/17/221429 Signed By: 08/17/22 143 Normal [facility] MM screening mammo BI w/CADo n 03-21-2022 MM screening mammo BI w/CAD [facility] [place] [address] Mammography Report Signed Patient: Radha Atkinson MR#: [id number] : 1945 Acct:[id number] Age/Sex: 76 / F ADM Date: 03/21/22 Loc: ID Room: Type: [facility] Attending Dr: Shannon Sheriff PHYSICIAN SURGEON-C Copies to: DEWAYNE Ellis MD Ordering Provider: Shannon Sheriff APRN Date of Service: 03/21/22 MM/MM screening mammo BI w/CAD: Screening for breast cancer CLINICAL DATA: Screening for malignancy. SCREENING MAMMOGRAM - FULL FIELD DIGITAL WITH TOMOSYNTHESIS AND CAD COMPARISON:Mammograms dating back to 2015 Tomosynthesis craniocaudal and mediolateral oblique views of both breasts were obtained using low- dose digital technique. This examination was reviewed with the aid of CAD. The breast tissue is composed of scattered fibroglandular densities. There are no dominant masses, typically malignant calcifications or architectural distortion. There has been no significant interval change. MM/MM screening mammo BI w/CAD IMPRESSION: NO MAMMOGRAPHIC EVIDENCE OF MALIGNANCY. ROUTINE FOLLOW-UP IS RECOMMENDED IN ONE YEAR. RESULT CODE: 1 Negative DENSITY CODE: 2 (approximately 25-50% glandular) FOLLOW UP: 1YR The false-negative rate of mammography is approximately 10-percent. Management of a palpable abnormality must be based on clinical grounds. Patient was entered into a reminder system with a target due date for the next mammogram. Impression dictated by: Grant Alexandra Jr., D.O.03/21/2022 1:44 PM Dictation Location: [facility] Transcribed By: RC 03/21/22 1344 Dictated By: Grant Alexandra Jr, 03/21/22 1343 Signed By: 03/21/22 1344 Normal [facility] Albumin [Mass/volume] in Ser um or PlasmaOrdered By: Shannon Sheriff on 02-10-2022 Albumin [Mass/Vol] 4.0 g/dL 3.2-5.5 [facility] Basophils Auto (Bld) [#/Vol] Ordered By: Shannon Sheriff on 02-10-2022 Basophils (Bld) [#/Vol] 0.0 10*3/uL 0.0-0.2 [facility] Basophils/100 WBC Auto (Bld) Ordered By: Shannon Sheriff on 02-10-2022 Basophils/100 WBC (Bld) 0.7 % . [facility] Cholesterol [Mass/volume] in Serum or PlasmaOrdered By: Shannon Sheriff on 02-10-2022 Cholesterol [Mass/Vol] 229 mg/dL 140-200 [facility] Comment on above: Chol less than 200 m g/dl low riskChol 201-239 mg/dl borderline riskChol 240 mg/dl and greater high risk Cholesterol in LDL Calc [Mas s/Vol]Ordered By: Shannon Sheriff on 02-10-2022 Cholesterol in LDL [Mass/Vol] 157 mg/dL 0-100 [facility] Comment on above: LDL ATP III CLASSIFI CATIONLDL less than 100 mg/dL OptimalLDL 100-129 mg/dL Near or above optimalLDL 130-159 mg/dL Borderline highLDL 160-189 mg/dL HighLDL greater than 189 mg/dL Very high Cholesterol in VLDL Calc [Ma ss/Vol]Ordered By: Shannon Sheriff on 02-10-2022 Cholesterol in VLDL [Mass/Vol] 20 mg/dL [facility] Complete Blood Count Auto Di ffon 02-10-2022 Basophils (Bld) [#/Vol] 0.0 10*3/uL Normal 0.0-0.2 [facility] Comment on above: Order Comment: Reaso n for Exam Medicare annual wellness visit, initial;Dyslipidemia;COPD (c Result Comment: PERF ORMED BY: [facility] [address] [place] [address] PATHOLOGIST [employer] ATTENDANT MANSORO WATKINS M.D. Performed By: #### T SH3 wRFLX, CMP, CBC, LIPID #### [facility] [address] [place] [address] [place] Basophils/100 WBC (Bld) 0.7 % Normal . [facility] Comment on above: Order Comment: Reaso n for Exam Medicare annual wellness visit, initial;Dyslipidemia;COPD (c Performed By: #### T SH3 wRFLX, CMP, CBC, LIPID #### [facility] [address] [place] [address] [place] Eosinophils (Bld) [#/Vol] 0.2 10*3/uL Normal 0.0-0.45 [facility] Comment on above: Order Comment: Reaso n for Exam Medicare annual wellness visit, initial;Dyslipidemia;COPD (c Performed By: #### T SH3 wRFLX, CMP, CBC, LIPID #### [facility] [address] [place] [address] [place] Eosinophils/100 WBC (Bld) 3.7 % Normal . [facility] Comment on above: Order Comment: Reaso n for Exam Medicare annual wellness visit, initial;Dyslipidemia;COPD (c Performed By: #### T SH3 wRFLX, CMP, CBC, LIPID #### [facility] [address] [place] [address] Erythrocyte distribution width (RBC) [Ratio] 13.9 % Normal 11.9-15.3 [facility] Comment on above: Order Comment: Reaso n for Exam Medicare annual wellness visit, initial;Dyslipidemia;COPD (c Performed By: #### T SH3 wRFLX, CMP, CBC, LIPID #### [facility] [address] [place] [address] [place] Hematocrit (Bld) [Volume fraction] 45.9 % Normal 34.0-46.4 [facility] Comment on above: Order Comment: Reaso n for Exam Medicare annual wellness visit, initial;Dyslipidemia;COPD (c Performed By: #### T SH3 wRFLX, CMP, CBC, LIPID #### [facility] [address] [place] [address] [place] Hemoglobin (Bld) [Mass/Vol] 15.2 g/dL Normal 11.8-15.4 [facility] Comment on above: Order Comment: Reaso n for Exam Medicare annual wellness visit, initial;Dyslipidemia;COPD (c Performed By: #### T SH3 wRFLX, CMP, CBC, LIPID #### [facility] [address] Lymphocytes (Bld) [#/Vol] 2.0 10*3/uL Normal 1.00-4.8 [facility] Comment on above: Order Comment: Reaso n for Exam Medicare annual wellness visit, initial;Dyslipidemia;COPD (c Performed By: #### T SH3 wRFLX, CMP, CBC, LIPID #### [facility] [address] [place] [address] Lymphocytes/100 WBC (Bld) 31.1 % Normal . [facility] Comment on above: Order Comment: Reaso n for Exam Medicare annual wellness visit, initial;Dyslipidemia;COPD (c Performed By: #### T SH3 wRFLX, CMP, CBC, LIPID #### [facility] [address] [place] [address] MCH (RBC) [Entitic mass] 30.2 pg Normal 24.7-34.3 [facility] Comment on above: Order Comment: Reaso n for Exam Medicare annual wellness visit, initial;Dyslipidemia;COPD (c Performed By: #### T SH3 wRFLX, CMP, CBC, LIPID #### [facility] [address] [place] [address] [place] MCV (RBC) [Entitic vol] 91.1 fL Normal 80-100 [facility] Comment on above: Order Comment: Reaso n for Exam Medicare annual wellness visit, initial;Dyslipidemia;COPD (c Performed By: #### T SH3 wRFLX, CMP, CBC, LIPID #### [facility] [address] [place] [address] [place] Mean Corpuscular HGB Conc 33.1 g/dL Normal 32.0-35.0 [facility] Comment on above: Order Comment: Reaso n for Exam Medicare annual wellness visit, initial;Dyslipidemia;COPD (c Performed By: #### T SH3 wRFLX, CMP, CBC, LIPID #### [facility] [address] [place] [address] [place] Monocytes (Bld) [#/Vol] 0.5 10*3/uL Normal 0.0-0.8 [facility] Comment on above: Order Comment: Reaso n for Exam Medicare annual wellness visit, initial;Dyslipidemia;COPD (c Performed By: #### T SH3 wRFLX, CMP, CBC, LIPID #### [facility] [address] [place] [address] [place] Monocytes/100 WBC (Bld) 8.0 % Normal . [facility] Comment on above: Order Comment: Reaso n for Exam Medicare annual wellness visit, initial;Dyslipidemia;COPD (c Performed By: #### T SH3 wRFLX, CMP, CBC, LIPID #### [facility] [address] [place] [address] [place] Neutrophils (Bld) [#/Vol] 3.6 10*3/uL Normal 1.8-7.7 [facility] Comment on above: Order Comment: Reaso n for Exam Medicare annual wellness visit, initial;Dyslipidemia;COPD (c Performed By: #### T SH3 wRFLX, CMP, CBC, LIPID #### [facility] [address] [place] [address] [place] Neutrophils/100 WBC (Bld) 56.5 % Normal . [facility] Comment on above: Order Comment: Reaso n for Exam Medicare annual wellness visit, initial;Dyslipidemia;COPD (c Performed By: #### T SH3 wRFLX, CMP, CBC, LIPID #### [facility] [address] [place] [id number] [place] Nucleated RBC/100 WBC (Bld) [Ratio] 0.2 % Normal 0-0.5 [facility] Comment on above: Order Comment: Reaso n for Exam Medicare annual wellness visit, initial;Dyslipidemia;COPD (c Performed By: #### T SH3 wRFLX, CMP, CBC, LIPID #### [facility] [address] [place] [id number] [place] Platelet mean volume (Bld) [Entitic vol] 9.7 fL Normal 6.3-10.7 [facility] Comment on above: Order Comment: Reaso n for Exam Medicare annual wellness visit, initial;Dyslipidemia;COPD (c Performed By: #### T SH3 wRFLX, CMP, CBC, LIPID #### [facility] [address] Platelets (Bld) [#/Vol] 223 10*3/uL Normal 150-450 [facility] Comment on above: Order Comment: Reaso n for Exam Medicare annual wellness visit, initial;Dyslipidemia;COPD (c Performed By: #### T SH3 wRFLX, CMP, CBC, LIPID #### [facility] [address] RBC (Bld) [#/Vol] 5.04 10*6/uL High 3.60-5.00 [facility] Comment on above: Order Comment: Reaso n for Exam Medicare annual wellness visit, initial;Dyslipidemia;COPD (c Performed By: #### T SH3 wRFLX, CMP, CBC, LIPID #### [facility] [address] WBC (Bld) [#/Vol] 6.4 10*3/uL Normal 4.5-11.0 [facility] Comment on above: Order Comment: Reaso n for Exam Medicare annual wellness visit, initial;Dyslipidemia;COPD (c Performed By: #### T SH3 wRFLX, CMP, CBC, LIPID #### [facility] [address] [place] [address] Comprehensive Metabolic Pane cathleen 02-10-2022 Albumin [Mass/Vol] 4.0 g/dL Normal 3.2-5.5 [facility] Comment on above: Order Comment: Reaso n for Exam Medicare annual wellness visit, initial;Dyslipidemia;COPD (c FASTING Performed By: #### T SH3 wRFLX, CMP, CBC, LIPID #### [facility] [address] [place] [address] Albumin/Globulin [Mass ratio] 1.8 {ratio} Normal [facility] Comment on above: Order Comment: Reaso n for Exam Medicare annual wellness visit, initial;Dyslipidemia;COPD (c FASTING Performed By: #### T SH3 wRFLX, CMP, CBC, LIPID #### [facility] [address] [place] [id number] [place] ALP [Catalytic activity/Vol] 66 U/L Normal 32-92 [facility] Comment on above: Order Comment: Reaso n for Exam Medicare annual wellness visit, initial;Dyslipidemia;COPD (c FASTING Performed By: #### T SH3 wRFLX, CMP, CBC, LIPID #### [facility] [address] [place] [id number] [place] ALT [Catalytic activity/Vol] 15 U/L Normal 10-60 [facility] Comment on above: Order Comment: Reaso n for Exam Medicare annual wellness visit, initial;Dyslipidemia;COPD (c FASTING Performed By: #### T SH3 wRFLX, CMP, CBC, LIPID #### [facility] [address] Anion gap [Moles/Vol] 14.5 mmol/L Normal 6.0-15.0 [facility] Comment on above: Order Comment: Reaso n for Exam Medicare annual wellness visit, initial;Dyslipidemia;COPD (c FASTING Performed By: #### T SH3 wRFLX, CMP, CBC, LIPID #### [facility] [address] [place] [address] [place] AST [Catalytic activity/Vol] 19 U/L Normal 10-42 [facility] Comment on above: Order Comment: Reaso n for Exam Medicare annual wellness visit, initial;Dyslipidemia;COPD (c FASTING Performed By: #### T SH3 wRFLX, CMP, CBC, LIPID #### [facility] [address] [place], [place] [id number] [place] Bilirubin [Mass/Vol] 0.6 mg/dL Normal 0.3-1.2 [facility] Comment on above: Order Comment: Reaso n for Exam Medicare annual wellness visit, initial;Dyslipidemia;COPD (c FASTING Performed By: #### T SH3 wRFLX, CMP, CBC, LIPID #### [facility] [address] [place] [id number] [place] Calcium [Mass/Vol] 9.2 mg/dL Normal 8.2-10.2 [facility] Comment on above: Order Comment: Reaso n for Exam Medicare annual wellness visit, initial;Dyslipidemia;COPD (c FASTING Performed By: #### T SH3 wRFLX, CMP, CBC, LIPID #### [facility] [address] [place] [address] [place] Chloride [Moles/Vol] 98 mmol/L Normal 95-114 [facility] Comment on above: Order Comment: Reaso n for Exam Medicare annual wellness visit, initial;Dyslipidemia;COPD (c FASTING Performed By: #### T SH3 wRFLX, CMP, CBC, LIPID #### [facility] [address] [place] [address] [place] CO2 [Moles/Vol] 28.1 mmol/L Normal 22.0-30.0 [facility] Comment on above: Order Comment: Reaso n for Exam Medicare annual wellness visit, initial;Dyslipidemia;COPD (c FASTING Performed By: #### T SH3 wRFLX, CMP, CBC, LIPID #### [facility] [address] Creatinine [Mass/Vol] 0.56 mg/dL Normal 0.44-1.03 [facility] Comment on above: Order Comment: Reaso n for Exam Medicare annual wellness visit, initial;Dyslipidemia;COPD (c FASTING Performed By: #### T SH3 wRFLX, CMP, CBC, LIPID #### [facility] [address] [place] [address] [place] Estimated GFR ( Christiana > 60 [facility] Comment on above: Order Comment: Reaso n for Exam Medicare annual wellness visit, initial;Dyslipidemia;COPD (c FASTING Result Comment: GFR estimated reference range: According to KDOQI guidelines, <60 ml/min/1.73m2 is sufficient to diagnose a patient with chronic kidney disease. Performed By: #### T SH3 wRFLX, CMP, CBC, LIPID #### [facility] [address] [place] [id number] [place] Estimated GFR (Non- Am > 60 [facility] Comment on above: Order Comment: Reaso n for Exam Medicare annual wellness visit, initial;Dyslipidemia;COPD (c FASTING Performed By: #### T SH3 wRFLX, CMP, CBC, LIPID #### [facility] [address] [place] [address] [place] Globulin (S) [Mass/Vol] 2.2 g/dL Normal [facility] Comment on above: Order Comment: Reaso n for Exam Medicare annual wellness visit, initial;Dyslipidemia;COPD (c FASTING Performed By: #### T SH3 wRFLX, CMP, CBC, LIPID #### [facility] [address] [place] [phone] [place] Glucose [Mass/Vol] 96 mg/dL Normal 70-100 [facility] Comment on above: Order Comment: Reaso n for Exam Medicare annual wellness visit, initial;Dyslipidemia;COPD (c FASTING Result Comment: [facility] Glucose Reference Range is dependent on time and content of last meal. Glucose of more than 200 mg/dL in a nonstressed, ambulatory subject supports the diagnosis of Diabetes Mellitus. ADA recommended reference range Performed By: #### T SH3 wRFLX, CMP, CBC, LIPID #### [facility] [address] [place] [phone] [place] Potassium [Moles/Vol] 4.6 mmol/L Normal 3.5-5.1 [facility] Comment on above: Order Comment: Reaso n for Exam Medicare annual wellness visit, initial;Dyslipidemia;COPD (c FASTING Performed By: #### T SH3 wRFLX, CMP, CBC, LIPID #### [facility] [address] [place] [phone] [place] Protein [Mass/Vol] 6.2 g/dL Normal 6.1-7.9 [facility] Comment on above: Order Comment: Reaso n for Exam Medicare annual wellness visit, initial;Dyslipidemia;COPD (c FASTING Performed By: #### T SH3 wRFLX, CMP, CBC, LIPID #### [facility] [address] [place] [phone] [place] Sodium [Moles/Vol] 136 mmol/L Normal 136-146 [facility] Comment on above: Order Comment: Reaso n for Exam Medicare annual wellness visit, initial;Dyslipidemia;COPD (c FASTING Performed By: #### T SH3 wRFLX, CMP, CBC, LIPID #### [facility] [address] [place] [phone] [place] Urea nitrogen [Mass/Vol] 5 mg/dL Low 9- [facility] Comment on above: Order Comment: Reaso n for Exam Medicare annual wellness visit, initial;Dyslipidemia;COPD (c FASTING Performed By: #### T SH3 wRFLX, CMP, CBC, LIPID #### [facility] [address] [place] [phone] [facility] Creatinine and Glomerular fi ltration rate.predicted panel (S/P/Bld)Ordered By: Shannon Sheriff on 02-10-2022 Creatinine [Mass/Vol] 0.56 mg/dL 0.44-1.03 [facility] Eosinophils Auto (Bld) [#/Vo l]Ordered By: Shannon Sheriff on 02-10-2022 Eosinophils (Bld) [#/Vol] 0.2 10*3/uL 0.0-0.45 [facility] Eosinophils/100 WBC Auto (Bl d)Ordered By: Shannon Sheriff on 02-10-2022 Eosinophils/100 WBC (Bld) 3.7 % . [facility] Erythrocyte distribution wid th Auto (RBC) [Ratio]Ordered By: Shannon Sheriff on 02-10-2022 Erythrocyte distribution width (RBC) [Ratio] 13.9 % 11.9-15.3 [facility] Estimated glomerular filtrat ion rate (GFR) non- AmericanOrdered By: Shannon Sheriff on 02-10-2022 GFR/1.73 sq M.predicted among non-blacks MDRD (S/P/Bld) [Vol rate/Area] > 60 mL/Min [facility] Globulin Calc (S) [Mass/Vol] Ordered By: Shannon Sheriff on 02-10-2022 Globulin (S) [Mass/Vol] 2.2 g/dL F [facility] Hematocrit Auto (Bld) [Volum e fraction]Ordered By: Shannon Sheriff on 02-10-2022 Hematocrit (Bld) [Volume fraction] 45.9 % 34.0-46.4 [facility] Hemoglobin [Mass/volume] in BloodOrdered By: Shannon Sheriff on 02-10-2022 Hemoglobin (Bld) [Mass/Vol] 15.2 g/dL 11.8-15.4 [facility] - Hematology and Cell countsOrdered By: Shannon Sheriff on 02-10-2022 Nucleated RBC/100 WBC (Bld) [Ratio] 0.2 % 0-0.5 [facility] Leukocytes [#/volume] in Blo od by Automated countOrdered By: Shannon Sheriff on 02-10-2022 WBC (Bld) [#/Vol] 6.4 10*3/uL 4.5-11.0 [facility] Lipid Panelon 02-10-2022 Cholesterol [Mass/Vol] 229 mg/dL High 140-200 [facility] Comment on above: Order Comment: Reaso n for Exam Medicare annual wellness visit, initial;Dyslipidemia;COPD (c FASTING Result Comment: Chol less than 200 mg/dl low risk Chol 201-239 mg/dl borderline risk Chol 240 mg/dl and greater high risk Performed By: #### T SH3 wRFLX, CMP, CBC, LIPID #### [facility] [address] [place] [id number] [place] Cholesterol in HDL [Mass/Vol] 51 mg/dL Normal 35-85 [facility] Comment on above: Order Comment: Reaso n for Exam Medicare annual wellness visit, initial;Dyslipidemia;COPD (c FASTING Result Comment: HDL CHOL ATP-III CLASSIFICATION Cardiovascular Risk HDL > or equal to 60 mg/dL LOW HDL < 40 mg/dL HIGH Performed By: #### T SH3 wRFLX, CMP, CBC, LIPID #### [facility] [address] [place] [address] [place] Cholesterol.total/Choles terol in HDL [Mass ratio] 4.5 {ratio} Normal <5.0 [facility] Comment on above: Order Comment: Reaso n for Exam Medicare annual wellness visit, initial;Dyslipidemia;COPD (c FASTING Performed By: #### T SH3 wRFLX, CMP, CBC, LIPID #### [facility] [address] [place] [address] [place] LDL Cholesterol,Calculated 157 mg/dL High 0-100 [facility] Comment on above: Order Comment: Reaso n for Exam Medicare annual wellness visit, initial;Dyslipidemia;COPD (c FASTING Result Comment: LDL ATP III CLASSIFICATION LDL less than 100 mg/dL Optimal LDL 100-129 mg/dL Near or above optimal LDL 130-159 mg/dL Borderline high LDL 160-189 mg/dL High LDL greater than 189 mg/dL Very high Performed By: #### T SH3 wRFLX, CMP, CBC, LIPID #### [facility] [address] Triglyceride w/Reflex 104 mg/dL Normal 35-149 [facility] Comment on above: Order Comment: Reaso n for Exam Medicare annual wellness visit, initial;Dyslipidemia;COPD (c FASTING Result Comment: TRIG ATP III CLASSIFICATION TRIG less than 150 mg/dL Normal TRIG 150-199 mg/dL Borderline high TRIG 200-500 mg/dL High TRIG greater than 500 mg/dL Very high Standard traceable to the Center for Disease Conrtrol and Prevention (CDC) test method. Performed By: #### T SH3 wRFLX, CMP, CBC, LIPID #### [facility] [address] VLDL CHOLESTEROL 20 mg/dL Normal [facility] Comment on above: Order Comment: Reaso n for Exam Medicare annual wellness visit, initial;Dyslipidemia;COPD (c FASTING Performed By: #### T SH3 wRFLX, CMP, CBC, LIPID #### [facility] [address] Lymphocytes Auto (Bld) [#/Vo l]Ordered By: Shannon Sheriff on 02-10-2022 Lymphocytes (Bld) [#/Vol] 2.0 10*3/uL 1.00-4.8 [facility] Lymphocytes/100 WBC Auto (Bl d)Ordered By: Shannon Sheriff on 02-10-2022 Lymphocytes/100 WBC (Bld) 31.1 % . [facility] MCH Auto (RBC) [Entitic mass ]Ordered By: Shannon Sheriff on 02-10-2022 MCH (RBC) [Entitic mass] 30.2 pg 24.7-34.3 [facility] MCHC Auto (RBC) [Mass/Vol]Or dered By: Shannon Sheriff on 02-10-2022 MCHC (RBC) [Mass/Vol] 33.1 g/dL 32.0-35.0 [facility] MCV Auto (RBC) [Entitic vol] Ordered By: Shannon Sheriff on 02-10-2022 MCV (RBC) [Entitic vol] 91.1 fL 80-100 F [facility] Monocytes Auto (Bld) [#/Vol] Ordered By: Shannon Sheriff on 02-10-2022 Monocytes (Bld) [#/Vol] 0.5 10*3/uL 0.0-0.8 [facility] Monocytes/100 WBC Auto (Bld) Ordered By: Shannon Sheriff on 02-10-2022 Monocytes/100 WBC (Bld) 8.0 % . [facility] Neutrophils Auto (Bld) [#/Vo l]Ordered By: Shannon Sheriff on 02-10-2022 Neutrophils (Bld) [#/Vol] 3.6 10*3/uL 1.8-7.7 [facility] Neutrophils/100 WBC Auto (Bl d)Ordered By: Shannon Sheriff on 02-10-2022 Neutrophils/100 WBC (Bld) 56.5 % . [facility] No Panel InformationOrdered By: Shannon Sheriff on 02-10-2022 Estimated GFR () > 60 mL/Min [facility] Comment on above: GFR estimated refere nce range: According to KDOQI guidelines, <60 ml/min/1.73m2 is sufficient to diagnose a patient with chronic kidney disease. Pharmacy Creatinine Clearance (Chem N/A [facility] Platelet mean volume Auto (B ld) [Entitic vol]Ordered By: Shannon Sheriff on 02-10-2022 Platelet mean volume (Bld) [Entitic vol] 9.7 fL 6.3-10.7 [facility] Platelets Auto (Bld) [#/Vol] Ordered By: Shannon Sheriff on 02-10-2022 Platelets (Bld) [#/Vol] 223 10*3/uL 150-450 [facility] Protein [Mass/volume] in Ser um or PlasmaOrdered By: Shannon Sheriff on 02-10-2022 Protein [Mass/Vol] 6.2 g/dL 6.1-7.9 [facility] RBC Auto (Bld) [#/Vol]Ordere d By: Shannon Sheriff on 02-10-2022 RBC (Bld) [#/Vol] 5.04 10*6/uL 3.60-5.00 [facility] Serum or plasma alanine liriano otransferase measurement without P-5'-P (enzymatic activiOrdered By: Shannon Sheriff on 02-10-2022 ALT No additional P-5'-P [Catalytic activity/Vol] 15 U/L 10-60 [facility] Serum or plasma albumin/glob ulin mass ratioOrdered By: Shannon Sheriff on 02-10-2022 Albumin/Globulin [Mass ratio] 1.8 {ratio} [facility] Serum or plasma alkaline erika sphatase measurement (enzymatic activity/volume)Ordered By: Shannon Sheriff on 02-10-2022 ALP [Catalytic activity/Vol] 66 U/L 32-92 [facility] Serum or plasma anion gap de terminationOrdered By: Shannon Sheriff on 02-10-2022 Anion gap [Moles/Vol] 14.5 mmol/L 6.0-15.0 [facility] Serum or plasma aspartate am inotransferase measurement (enzymatic activity/volume)Ordered By: Shannon Sheriff on 02-10-2022 AST [Catalytic activity/Vol] 19 U/L 10-42 [facility] Serum or plasma calcium ellsi urement (mass/volume)Ordered By: Shannon Sheriff on 02-10-2022 Calcium [Mass/Vol] 9.2 mg/dL 8.2-10.2 [facility] Serum or plasma chloride geo surement (moles/volume)Ordered By: Shannon Sheriff on 02-10-2022 Chloride [Moles/Vol] 98 mmol/L 95-114 [facility] Serum or plasma glucose ellis urement (mass/volume)Ordered By: Shannon Sheriff on 02-10-2022 Glucose [Mass/Vol] 96 mg/dL 70-100 [facility] Comment on above: ADA recommended refe rence rangeRandom Glucose Reference Range is dependent on time and content of last meal. Glucose of more than 200 mg/dL in a nonstressed, ambulatory subject supports the diagnosis of Diabetes Mellitus. Serum or plasma high density lipoprotein (HDL) cholesterol measurementOrdered By: Shannon Sheriff on 02-10-2022 Cholesterol in HDL [Mass/Vol] 51 mg/dL 35-85 [facility] Comment on above: HDL CHOL ATP-III CLA SSIFICATION Cardiovascular RiskHDL > or equal to 60 mg/dL LOWHDL < 40 mg/dL HIGH Serum or plasma potassium me asurement (moles/volume)Ordered By: Shannon Sheriff on 02-10-2022 Potassium [Moles/Vol] 4.6 mmol/L 3.5-5.1 [facility] Serum or plasma sodium measu rement (moles/volume)Ordered By: Shannon Sheriff on 02-10-2022 Sodium [Moles/Vol] 136 mmol/L 136-146 [facility] Serum or plasma total biliru bin measurement (mass/volume)Ordered By: Shannon Sheriff on 02-10-2022 Bilirubin [Mass/Vol] 0.6 mg/dL 0.3-1.2 [facility] Serum or plasma total carbon dioxide measurement (moles/volume)Ordered By: Shannon Sheriff on 02-10-2022 CO2 [Moles/Vol] 28.1 mmol/L 22.0-30.0 [facility] Serum or plasma total choles terol/high density lipoprotein (HDL) cholesterol mass ratOrdered By: Shannon Sheriff on 02-10-2022 Cholesterol.total/Choles terol in HDL [Mass ratio] 4.5 {ratio} <5.0 [facility] Serum or plasma urea nitroge n measurement (mass/volume)Ordered By: Shannon Sheriff on 02-10-2022 Urea nitrogen [Mass/Vol] 5 mg/dL 9- [facility] TSH DL <= 0.005 mIU/L QnOrde red By: Shannon Sheriff on 02-10-2022 TSH Qn 4.26 m[IU]/L 0.45-5.33 [facility] Thyroid Stim Hormone w/Rflxo n 02-10-2022 Thyroid Stim Hormone w/Rflx 4.26 u[iU]/mL Normal 0.45-5.33 [facility] Comment on above: Order Comment: Reaso n for Exam Medicare annual wellness visit, initial;Dyslipidemia;COPD (c FASTING Result Comment: PERF ORMED BY: [facility] [address] [place] [address] PATHOLOGIST [employer] HOUSE ATTENDANT MANSOOR WATKINS M.D. Performed By: #### T SH3 wRFLX, CMP, CBC, LIPID #### [facility] [address] Triglyceride [Mass/volume] i n Serum or PlasmaOrdered By: Shannon Sheriff on 02-10-2022 Triglyceride [Mass/Vol] 104 mg/dL 35-149 F [facility] Comment on above: TRIG ATP III CLASSIF ICATIONTRIG less than 150 mg/dL NormalTRIG 150-199 mg/dL Borderline highTRIG 200-500 mg/dL High TRIG greater than 500 mg/dL Very highStandard traceable to the Center for Disease Conrtrol and Prevention (CDC) test method. COVID-19 Antigenon 2 COVID-19 Antigen Healthcare Worker?: N Reference Range: Negative Negative results, from patients with symptom onset beyond five days, should be treated as presumptive and confirmation with a molecular assay, if necessary, for patient management, may be performed. Negative results do not rule out COVID-19 and should not be used as the sole basis for treatment or patient management decisions, including infection control decisions. Negative results should be considered in the context of a patient's recent exposures, history and the presence of clinical signs and symptoms consistent with COVID-19. The Nikki SARS Antigen FABI does not differentiate between SARS-CoV and SARS-CoV-2. This test was developed and its performance characteristic determined by [employer] and validated at [facility]. This test has not been FDA cleared or approved. This test has been authorized by FDA under an Emergency Use Authorization (EUA). This test has been validated in accordance with the FDA's Guidance Document (Policy for Diagnostics Testing in Laboratories Certified to Perform High Complexity Testing under CLIA prior to Emergency Use Authorization for Coronavirus Disease-2019 during the Public Health Emergency) issued on July 11, 2019. This test is only authorized for the duration of time the declaration that circumstances exist justifying the authorization of the emergency use of in vitro diagnostic tests for detection of SARS-CoV-2 virus and/or diagnosis of COVID-19 infection under section 564(b)(1) of the Act, 21 U.S.C. 360bbb-3(b)(1), unless the authorization is terminated or revoked sooner. SARS-CoV+SARS-CoV-2 (COVID-19) Ag [Presence] in Respiratory specimen by Rapid immunoassay Negative for SARS Antigen by FABI PERFORMED BY: [place] [address] PATHOLOGIST [employer] HOUSE ATTENDANT MANSOOR WATKINS M.D. Normal [facility] Comment on above: Performed By: #### S OFIANEG, COVID-19 NIKKI #### [address] COVID-19 SOFIAOrdered By: Kye Tinsley on 10-30-2021 SARS-CoV+SARS-CoV-2 (COVID-19) Ag IA.rapid Ql (Resp) Negative Negative [facility] Comment on above: This is a duplicate Nikki SARS Antigen (FABI) result to be used for statistical tracking purpose only. ECG 12 lead ECGon 10-30-2021 ECG 12 lead ECG [facility] [address] [place] [address] Electrocardiograph Report Signed Patient: Radha Atkinson MR#: [id number] : 1945 Acct:[id number] Age/Sex: 75 / F ADM Date: 10/30/21 Loc: ER Room: Type: [facility] ER Attending Dr: Ordering Provider: Roman Tinsley DO Date of Service: 10/30/21 ECG/ECG 12 lead ECG: Shortness of Breath/Dyspnea Copies to: Test Reason : Blood Pressure : 148/096 mmHG Vent. Rate : 071 BPM Atrial Rate : 071 BPM P-R Int : 198 ms QRS Dur : 102 ms QT Int : 426 ms P-R-T Axes : 076 092 066 degrees QTc Int : 462 ms Normal sinus rhythm with sinus arrhythmia Possible Left atrial enlargement Rightward axis Borderline ECG When compared with ECG of 10-DEC-2015 14:52, ST no longer depressed in Inferior leads T wave inversion no longer evident in Inferior leads Confirmed by DORETHA BEASLEY [facility] ([id number]) on 11/01/2021 8:22:48 AM Referred By: Electronically Signed By:DANIEL COYNE MD [facility] Transcribed By: MUS Signed By Deion Coyne MD 11/01/21 0822 Normal [facility] No Panel InformationOrdered By: Roman Tinsley on 10-30-2021 SARS Antigen (LFIA) [facility] Nikki Ag Negativeon 10-31-19 Nikki Ag Negative Negative Normal Negative [facility] Comment on above: Result Comment: This is a duplicate Nikki SARS Antigen (FABI) result to be used for statistical tracking purpose only. PERFORMED BY: [place] [address] PATHOLOGIST [employer] HOUSE ATTENDANT MANSOOR WATKINS M.D. Performed By: #### S DARRON MCCURDY-19 NIKKI #### [address] XR chest 2V*on 10-30-2021 XR chest 2V* [facility] [address] [place] [address] XRay Report Signed Patient: Radha Atkinson MR#: [id number] : 1945 Acct:[id number] Age/Sex: 75 / F ADM Date: 10/30/21 Loc: ER Room: Type: [facility] ER Attending Dr: Copies to: Roman Tinsley DO Ordering Provider: Roman Tinsley DO Date of Service: 10/30/21 XR/XR chest 2V*: Shortness of Breath/Dyspnea PA AND LATERAL CHEST: CLINICAL HISTORY: Shortness of breath and cough. History of lung cancer. COMPARISON: 12/23/[address] 06/24/2021 The lungs are hyperinflated. There is scarring and a staple line at the left midlung. There is also scarring at the apices. There is no developing consolidation, effusion or pneumothorax. The cardiac, hilar and mediastinal silhouettes are within normal limits. There is no vascular congestion. The visualized bony structures are osteopenic . XR/XR chest 2V* IMPRESSION: OBSTRUCTIVE LUNG DISEASE AND LEFT POSTOPERATIVE CHANGES. NO ACUTE CARDIOPULMONARY ABNORMALITY. Impression dictated by: Sharon Payton M.D.10/30/2021 12:33 PM Dictation Location: [place] [address] Transcribed By: [facility] 10/30/21 1233 Dictated By: Shraon Payton MD 10/30/21 1230 Signed By: 10/30/21 1233 [facility] Vital Signs Date Time Vital Sign Value Performing Clinician Facility 02-14-2023 08:34-0500 Body height 167.64 cm [facility] 02-14-2023 08:34-0500 Body mass index (BMI) [Ratio] 19.4 kg/m2 [facility] 02-14-2023 08:34-0500 Body temperature 97.6 [degF] [facility] 02-14-2023 08:34-0500 Body weight 54.61 kg [facility] 02-14-2023 08:34-0500 Diastolic blood pressure 88 mm[Hg] [facility] 02-14-2023 08:34-0500 Heart rate 113 /min [facility] 02-14-2023 08:34-0500 Respiratory rate 18 /min [facility] 02-14-2023 08:34-0500 SaO2% (BldA) [Mass fraction] 98 % [facility] 02-14-2023 08:34-0500 Systolic blood pressure 163 mm[Hg] [facility] 01-23-2023 10:30-0400 Body height 167.64 cm Matias Serna Other [facility] [facility] [employer] Other 01-23-2023 10:30-0400 Body mass index (BMI) [Ratio] 19.21 kg/m2 Matias Serna Other [employer] Other 01-23-2023 10:30-0400 Body temperature 96.4 [degF] Matias Serna Other [employer] Other 01-23-2023 10:30-0400 Body weight 53.98 kg Matias Serna Other [employer] Other 01-23-2023 10:30-0400 Diastolic blood pressure 78 mm[Hg] Matias Serna Other [employer] Other 01-23-2023 10:30-0400 Respiratory rate 20 /min Matias Serna Other [employer] Other 01-23-2023 10:30-0400 SaO2% (BldA) [Mass fraction] 97 % Matias Serna Other [employer] Other 01-23-2023 10:30-0400 Systolic blood pressure 136 mm[Hg] Matias Serna Other [employer] Other 11-07-2022 14:45-0400 Body height 167.64 cm Matias Serna Other [employer] Other 11-07-2022 14:45-0400 Body mass index (BMI) [Ratio] 20.66 kg/m2 Matias Serna Other [employer] Other 11-07-2022 14:45-0400 Body weight 58.06 kg Matias Serna Other [employer] Other 11-07-2022 14:45-0400 Diastolic blood pressure 70 mm[Hg] Matias Serna Other [employer] Other 11-07-2022 14:45-0400 Respiratory rate 20 /min Mtaias Serna Other [employer] Other 11-07-2022 14:45-0400 SaO2% (BldA) [Mass fraction] 97 % Matias Serna Other [employer] Other 11-07-2022 14:45-0400 Systolic blood pressure 134 mm[Hg] Matias Serna Other [employer] Other 09-13-2022 11:45-0400 Body height 167.64 cm Indio Davidson Other [employer] Other 09-13-2022 11:45-0400 Body mass index (BMI) [Ratio] 20.66 kg/m2 Indio Davidson Other [employer] Other 09-13-2022 11:45-0400 Body temperature 96.9 [degF] Indio Davidson Other [employer] Other 09-13-2022 11:45-0400 Body weight 58.06 kg Indio Davidson Other [employer] Other 09-13-2022 11:45-0400 Diastolic blood pressure 72 mm[Hg] Indio Davidson Other [employer] Other 09-13-2022 11:45-0400 Respiratory rate 20 /min Indio Davidson Other [employer] Other 09-13-2022 11:45-0400 SaO2% (BldA) [Mass fraction] 94 % Indio Davidson Other [employer] Other 09-13-2022 11:45-0400 Systolic blood pressure 148 mm[Hg] Indio Noelban Other [employer] Other 08-01-2022 16:30-0400 Body height 167.64 cm Matias Serna Other [employer] Other 08-01-2022 16:30-0400 Body mass index (BMI) [Ratio] 20.98 kg/m2 Matias Serna Other [employer] Other 08-01-2022 16:30-0400 Body weight 58.97 kg Matias Serna Other [employer] Other 08-01-2022 16:30-0400 Diastolic blood pressure 70 mm[Hg] Matias Serna Other [employer] Other 08-01-2022 16:30-0400 Systolic blood pressure 134 mm[Hg] Matias Serna Other [employer] Other 05-05-2022 16:15-0500 Body height 167.64 cm Matias Serna Other [employer] Other 05-05-2022 16:15-0500 Body mass index (BMI) [Ratio] 21.59 kg/m2 Matias Serna Other [employer] Other 05-05-2022 16:15-0500 Body temperature 97.7 [degF] Matias Serna Other [employer] Other 05-05-2022 16:15-0500 Body weight 60.69 kg Matias Serna Other [employer] Other 05-05-2022 16:15-0500 Diastolic blood pressure 70 mm[Hg] Matias Serna Other [employer] Other 05-05-2022 16:15-0500 Respiratory rate 20 /min Matias Serna Other [employer] Other 05-05-2022 16:15-0500 SaO2% (BldA) [Mass fraction] 98 % Matias Serna Other [employer] Other 05-05-2022 16:15-0500 Systolic blood pressure 130 mm[Hg] Matias Serna Other [employer] Other 02-04-2022 12:30-0400 Body height 167.64 cm Shannon Jaziel Other [employer] Other 02-04-2022 12:30-0400 Body mass index (BMI) [Ratio] 21.79 kg/m2 Shannon Jaziel Other [employer] Other 02-04-2022 12:30-0400 Body weight 61.24 kg Shannon Jaziel Other [employer] Other 02-04-2022 12:30-0400 Diastolic blood pressure 82 mm[Hg] Shannon Jaziel Other [employer] Other 02-04-2022 12:30-0400 SaO2% (BldA) [Mass fraction] 95 % Shannon Jaziel Other [employer] Other 02-04-2022 12:30-0400 Systolic blood pressure 140 mm[Hg] Shannon Jaziel Other [employer] Other 12-04-2021 13:15-0400 Body height 167.64 cm MD Matias Serna Work Phone: [facility] 12-04-2021 13:15-0400 Body temperature 97.9 [degF] MD Matias Serna Work Phone: [facility] 12-04-2021 13:15-0400 Body weight 62.4 kg MD Matias Serna Work Phone: [facility] 12-04-2021 13:15-0400 Diastolic blood pressure 75 mm[Hg] MD Matias Serna Work Phone: [facility] 12-04-2021 13:15-0400 Heart rate 76 /min MD Matias Serna Work Phone: [facility] 12-04-2021 13:15-0400 Respiratory rate 18 /min MD Matias Serna Work Phone: [facility] 12-04-2021 13:15-0400 SaO2% (BldA) [Mass fraction] 100 % MD Matias Serna Work Phone: [facility] 12-04-2021 13:15-0400 Systolic blood pressure 162 mm[Hg] MD Matias Serna Work Phone: [facility] 10-30-2021 12:51-0400 Diastolic blood pressure 70 mm[Hg] MD Matias Serna Work Phone: [facility] 10-30-2021 12:51-0400 Heart rate 67 /min MD Matias Serna Work Phone: [facility] 10-30-2021 12:51-0400 Respiratory rate 18 /min MD Matias Serna Work Phone: [facility] 10-30-2021 12:51-0400 SaO2% (BldA) [Mass fraction] 97 % MD Matias Serna Work Phone: [facility] 10-30-2021 12:51-0400 Systolic blood pressure 160 mm[Hg] MD Matias Serna Work Phone: [facility] 10-30-2021 11:08-0400 Body height 168.91 cm MD Matias Serna Work Phone: [facility] 10-30-2021 11:08-0400 Body temperature 97.9 [degF] MD Matias Serna Work Phone: [facility] 10-30-2021 11:08-0400 Body weight 63.5 kg MD Matias Serna Work Phone: [facility] 10-02-2021 16:10-0400 Body height 167.64 cm MD Matias Serna Work Phone: [facility] 10-02-2021 16:10-0400 Body mass index (BMI) [Ratio] 22.4 kg/m2 MD Matias Serna Work Phone: [facility] 10-02-2021 16:10-0400 Body temperature 98.2 [degF] MD Matias Serna Work Phone: [facility] 10-02-2021 16:10-0400 Body weight 63.2 kg MD Matias Serna Work Phone: [facility] 10-02-2021 16:10-0400 Diastolic blood pressure 79 mm[Hg] MD Matias Serna Work Phone: [facility] 10-02-2021 16:10-0400 Heart rate 75 /min MD Matias Serna Work Phone: [facility] 10-02-2021 16:10-0400 Respiratory rate 20 /min MD Matias Serna Work Phone: [facility] 10-02-2021 16:10-0400 SaO2% (BldA) [Mass fraction] 97 % MD Matias Serna Work Phone: [facility] 10-02-2021 16:10-0400 Systolic blood pressure 175 mm[Hg] MD Matias Serna Work Phone: [facility] Encounters Encounter Date Encounter Type Care Provider Facility Start: 02-10-2025 ambulatory Zeinab L White Facility :[facility] Start: 02-10-2025 End: 02-11-2025 Evaluation and management of inpatient Zeinab L White Facility:[facility] Start: 02-09-2025 ambulatory Zeinab L White Facility :[facility] Start: 09-03-2024 End: 09-03-2024 ambulatory Mariel Duke MD Work Phone: [facility] Work Phone: Start: 09-03-2024 End: 09-03-[address] Mariel Duke MD -Laboratory [facility] Start: 09-03-2024 End: 09-03-2024 ambulatory Mariel Duke Facility:[facility] Start: 08-19-2024 End: 08-19-2024 ambulatory Mariel Duke MD Work Phone: [facility] Work Phone: Start: 08-19-2024 End: 08-19-[address] Mariel Duke MD -Laboratory [facility] Start: 08-19-2024 End: 08-19-2024 ambulatory Mariel Duke Facility:[facility] Start: 06-19-2023 End: 06-19-2023 ambulatory [facility] Work Phone: Start: 06-19-2023 End: 06-19-2023 Patient encounter procedure [facility]-Cat Scan, [facility] Work Phone: Start: 05-24-2023 End: 05-24-2023 ambulatory [facility] Work Phone: Start: 05-24-2023 End: 05-24-2023 Patient encounter procedure [facility]-Radiology, [place] Work Phone: Start: 02-14-2023 End: 02-14-2023 Emergency department patient visit [facility]Emergency Department Work Phone: Start: 02-03-2023 End: 02-03-2023 ambulatory Shannon Sheriff Other [employer] Other Start: 02-03-2023 Nursing evaluation o f patient and report Shannon Sheriff [facility] Start: 01-23-2023 End: 01-23-2023 ambulatory Matias Serna Other [employer] Other Start: 01-23-2023 Office outpatient vi sit 25 minutes Matias Serna [facility] Start: 01-23-2023 Telephone encounter Matias quiroga [facility] Start: 01-05-2023 End: 01-05-2023 ambulatory Matias Serna Other [employer] Other Start: 01-05-2023 Telephone encounter [facility] Start: 12-05-2022 End: 12-05-2022 ambulatory Matias Serna Other [employer] Other Start: 12-05-2022 Telephone encounter [facility] Start: 11-07-2022 End: 11-07-2022 ambulatory Matias Serna Other [employer] Other Start: 11-07-2022 Office outpatient vi sit 15 minutes Matias Serna [facility] Start: 11-07-2022 Telephone encounter [facility] Start: 10-13-2022 End: 10-13-2022 ambulatory Matias Serna Other [employer] Other Start: 10-13-2022 Telephone encounter [facility] Start: 09-13-2022 End: 09-13-2022 ambulatory Kamal Chaban Other [employer] Other Start: 09-13-2022 Office outpatient vi sit 25 minutes Kamal Chaban [facility] Start: 09-12-2022 End: 09-12-2022 ambulatory Matias Serna Other [employer] Other Start: 09-12-2022 Telephone encounter Matias Nikko [facility] Start: 08-17-2022 End: 08-17-2022 ambulatory Kamal Chaban Facility:[facility] Start: 08-17-2022 End: 08-17-2022 ambulatory MD Matias Serna Work Phone: [facility] Work Phone: Start: 08-17-2022 End: 08-17-2022 Patient encounter procedure MD Matias Serna Work Phone: [facility] [address] Work Phone: Start: 08-15-2022 End: 08-15-2022 ambulatory Matias Serna Other [employer] Other Start: 08-15-2022 Telephone encounter [facility] Start: 08-01-2022 End: 08-01-2022 ambulatory Matias Serna Other [employer] Other Start: 08-01-2022 Office outpatient vi sit 25 minutes Matias TANNER [facility] Start: 07-13-2022 End: 07-13-2022 ambulatory Matias Serna Other [employer] Other Start: 07-13-2022 Telephone encounter Matias quiroga [facility] Start: 06-13-2022 End: 06-13-2022 ambulatory Matias Serna Other [employer] Other Start: 06-13-2022 Telephone encounter Matias quiroga [facility] Start: 05-16-2022 End: 05-16-2022 ambulatory Matias Serna Other [employer] Other Start: 05-16-2022 Telephone encounter Matias quiroga [facility] Start: 05-05-2022 End: 05-05-2022 ambulatory Matias Serna Other [employer] Other Start: 05-05-2022 Office outpatient vi sit 25 minutes Matias Kareem [facility] Start: 05-04-2022 End: 05-04-2022 ambulatory Indio Davidson Other [employer] Other Start: 05-04-2022 Telephone encounter Kamronviridiana Lety [facility] Start: 04-13-2022 End: 04-13-2022 ambulatory Matias Serna Other [employer] Other Start: 04-13-2022 Telephone encounter Matias quiroga [facility] Start: 03-29-2022 End: 03-29-2022 ambulatory Shannon Jaziel Other [employer] Other Start: 03-29-2022 Telephone encounter Shannonra Sheriff [facility] Start: 03-22-2022 End: 03-22-2022 ambulatory Matias Serna Other [employer] Other Start: 03-22-2022 Telephone encounter Matias quiroga [facility] Start: 03-21-2022 End: 03-21-2022 ambulatory MD Matias Serna Work Phone: [facility] Work Phone: Start: 03-21-2022 End: 03-21-2022 Patient encounter procedure MD Matias Serna Work Phone: [facility] Start: 03-14-2022 End: 03-14-2022 ambulatory Matias Serna Other [employer] Other Start: 03-14-2022 Telephone encounter Matias quiroga [facility] Start: 02-10-2022 End: 02-10-2022 ambulatory Shannon Jaziel Facility:[facility] Start: 02-10-2022 Encounter for genera l adult medical examination without abnormal findings Shannon Jaziel [facility] Start: 02-10-2022 End: 02-10-2022 ambulatory MD Matias Serna Work Phone: [facility] Work Phone: Start: 02-10-2022 End: 02-10-2022 Patient encounter procedure MD Matias Serna Work Phone: [facility] [place] Start: 02-04-2022 End: 02-04-2022 ambulatory Shannon Jaziel Other [employer] Other Start: 02-04-2022 Patient encounter procedure Shannon Sheriff [facility] Start: 01-13-2022 End: 01-13-2022 ambulatory Matias Serna Other [employer] Other Start: 01-13-2022 Telephone encounter Matias quiroga [facility] Start: 12-15-2021 End: 12-15-2021 ambulatory Matias Serna Other [employer] Other Start: 12-15-2021 Telephone encounter Matias quiroga [facility] Start: 12-14-2021 End: 12-14-2021 ambulatory Matias Serna Other [employer] Other Start: 12-14-2021 Telephone encounter Matias quiroga [facility] Start: 12-04-2021 End: 12-04-2021 Emergency department patient visit Nicole Malik Facility:[facility] Start: 12-04-2021 End: 12-04-2021 Emergency department patient visit MD Matias Serna Work Phone: [facility] Start: 11-16-2021 End: 11-16-2021 ambulatory Matias Serna Other [employer] Other Start: 11-16-2021 Telephone encounter Matias quiroga [facility] Start: 10-30-2021 End: 10-30-2021 Emergency department patient visit Roman Tinsley Facility:[facility] Start: 10-30-2021 End: 10-30-2021 Emergency department patient visit MD Matias Serna Work Phone: [facility] Start: 10-18-2021 End: 10-18-2021 ambulatory Matias Serna Other [employer] Other Start: 10-18-2021 Telephone encounter Matias quiroga [facility] Start: 10-04-2021 End: 10-04-2021 ambulatory Matias Serna Other [facility] Other Start: 10-04-2021 Telephone encounter [facility] Start: 10-02-2021 End: 10-02-2021 Emergency department patient visit Burak Garrido Facility:[facility] Start: 10-02-2021 End: 10-02-2021 Emergency department patient visit MD Matias Serna Work Phone: [facility] Start: 09-15-2021 End: 09-15-2021 ambulatory Matias Brookson Other [facility] Other Start: 09-15-2021 Telephone encounter [facility] Start: 08-16-2021 End: 08-16-2021 ambulatory Matias Brookson Other [facility] Other Start: 08-16-2021 Telephone encounter [facility] Start: 07-19-2021 End: 07-19-2021 ambulatory Matias Brookson Other [facility] Other Start: 07-19-2021 Telephone encounter [facility] Procedures Date Procedure Procedure Detail Performing Clinician Start: 08-19-2024 Vitamin D, 25-hydrox y measurement Mariel Duke MD Work Phone: Comment on above: Vitamin D StatusDefi ciency: <20 ng/mL (50nmol/L)Insufficiency: 20-30 ng/mL (50-75 nmol/L)Sufficiency: 30-100 ng/mL (75-250 nmol/L)Toxicity: >100 ng/mL (>250 nmol/L) Start: 06-19-2023 CT of thorax with contrast Start: 05-24-2023 Plain chest X-ray Start: 08-17-2022 CT of lungs MD Matias Serna Work Phone: Start: 03-21-2022 Dual energy X-ray absorptiometry MD Matias Serna Work Phone: Start: 03-21-2022 Screening mammograph y of bilateral breasts MD Matias Serna Work Phone: Start: 10-30-2021 Plain chest X-ray MD Dayanna Serna Work Phone: SARS Antigen (LFIA) MD Charbel Serna Work Phone: Plan of Treatment Date Care Activity Detail Author Patient Education [facility] Work Phone: Patient referral [facility] Work Phone: Immunizations Immunization Date Immunization Notes Care Provider Fa janelle 02-03-2023 Prevnar 20 Shannonra Sheriff Other [facility] Other 01-23-2023 influenza, high dose seasonal, preservative-free Matias Serna Other [facility] Other 02-04-2022 influenza, high dose seasonal, preservative-free Shannon Jaziel Other [facility] Other 03-24-2021 COVID-19 Vaccine Moderna - Documentation Purposes Only Matias Serna Other [facility] Other 07-23-2020 COVID-19 Vaccine Moderna - Documentation Purposes Only Matias Serna Other [facility] Other 06-25-2020 COVID-19 Vaccine Moderna - Documentation Purposes Only Matias Serna Other [facility] Other 06-03-2020 tetanus toxoid, redu schuyler diphtheria toxoid, and acellular pertussis vaccine, adsorbed Matias Serna Other [facility] 01-16-2018 influenza, injectabl e, quadrivalent, contains preservative Matias Serna Other [facility] [employer] Other 01-12-2017 influenza, injectabl e, quadrivalent, contains preservative Matias Serna Other [facility] Other 07-13-2016 pneumococcal conjuga te vaccine, 13 valent Matias Serna Other [facility] Other 02-16-2016 influenza, seasonal, injectable Matias Serna Other [facility] Other 12-09-2013 pneumococcal polysaccharide vaccine, 23 valent Matias Serna Other [facility] Other Payers Date Payer Category Payer Medicare [id number] 2021 Medicare [id number] 2021 Self-pay [id number] 2013 Unknown [id number] Medicare [id number] Medicare [id number] Medicare [facility] MEDICARE ADVANTAGE [id number] Private Health Insurance [employer] [id number] Unknown [id number] 31 Unknown [id number] 31 Unknown [id number] 31 Unknown [id number] 31 Unknown [id number] [id number] 31 Unknown [id number] [id number] 31 Unknown [id number] [id number] 62 Unknown [id number] [id number] 62 Unknown [id number] [id number] 62 Unknown [id number] [id number] 62 Unknown [id number] [id number] 62 Unknown [id number] 62 Social History Date Type Detail Facility Sex Assigned At [facility] Other Start: 10-30-2021 End: 12-04-2021 Tobacco smoking status NHIS Smoker (finding) [facility] Start: 1945 Sex Assigned At Female F [facility] Start: 02-14-2023 End: 02-14-2023 Tobacco smoking status NHIS Unknown if ever smoked [facility] Start: 02-14-2023 Tobacco smoking stat us NHIS Smokes tobacco daily (finding) [facility] Clinical Notes 12-10-2015 to 02-11-2025 Note Date & Type Note Facility 02-11-2025 Note [facility] Medical Records Department [address] [place] [address] Discharge Summary 02/11/25 1412 MR#: [id number] Acct: [id number] Name: RADHA ATKINSON Rep #: [id number] : 1945 79 From: Juli Rios MD PCP: Dr. Mariel Duke MD Status:DIS IN [place] [facility] [place] Providers Date of Admission: 02/10/25 Date of Discharge: 02/12/25 Primary Care Physician: Mariel Duke MD Reason For Visit: COPD EXACERBATION Diagnosis Discharge Diagnosis (1) Acute exacerbation of chronic obstructive pulmonary disease: Status: Chronic Code(s): J44.1 - Chronic obstructive pulmonary disease with (acute) exacerbation Plan #Acute exacerbation of COPD # Chronic hyponatremia # Alcohol use #Tobacco use #Depression/anxiety Medications at Discharge Home Medications fluticasone fur. 200 mcg-umeclid 62.5 mcg-vilant 25 mcg inhalat.powder (Trelegy Ellipta) 1 ea inhalation DAILY 02/09/25 lorazepam 0.5 mg tablet 0.5 mg PO BID PRN PRN anxiety 02/09/25 azithromycin 250 mg tablet 500 mg (2 x 250 mg) PO Q24 3 days #6 tabs 02/11/25 ipratropium 0.5 mg-albuterol 3 mg (2.5 mg base)/3 mL nebulization soln 3 ml inhalation Q4HWA.RT PRN Shortness of breath/weezing #180 mL 02/11/25 prednisone 20 mg tablet See Taper PO BREAKFAST #32 tabs 02/11/25 Hospital Course Summary of Care Provided Minutes Spent on Discharge: 27 Hospital Course: 79-year-old female history of COPD with prior lung cancer resection not on home O2 and anxiety presented [facility] ED 02/09/2025 due to shortness of breath and coughing. She recently had URI over this past week and yesterday had increased wheezing and shortness of breath and increased clear sputum. In the ED temp 97, heart rate initially 120 with a respiratory rate of 26, blood pressure 151/117 and pulse ox 96% on room air. Labs showed white count of 12.5, hemoglobin of 15, sodium of 128, troponin of 11 with a repeat of 16. Chest x-ray with opacity in posterior lungs on the lateral view that could represent infection or atelectasis versus artifact as well as diffusely prominent interstitial markings possible infection or inflammation or pulmonary edema. It was felt patient had COPD exacerbation and was given Solu-Medrol, nebs, and azithromycin and hospitalist contacted for admission. Pt improved with steroids and breathing treatments. She was able to ambulate without need for O2 and with improving shortness of breath and felt comfortable discharging home. No new or acute complaints on day of discharge. Discharge instructions as follows: - You will be discharged on 3 more days of azithromycin for your breathing - A prescription for nebulizer solution will be sent into preferred pharmacy on file, you indicated that you have a nebulizer at home, please use this up to every 4 hours as needed for shortness of breath and wheezing -You will be discharged on a prednisone taper: -60 mg daily x3 days -50mg daily x3 days -40mg daily x3 days -30mg daily x3 days -20mg daily x3 days -10mg daily x3 days -It is very important that you quit smoking moving forward -Please call your primary care provider's office upon discharge to schedule a hospital follow up within 1 week. -For any concerning signs or symptoms please call 911 or proceed to the nearest emergency department Physical Exam Narrative General: Alert, oriented, no apparent distress HEENT: Atraumatic, normocephalic Eyes: Anicteric, normal conjunctiva, extraocular movements grossly intact Neck: Supple Respiratory: Transmitted upper airway sounds with no wheezes Cardiovascular: Regular rate and rhythm GI: Soft, nontender, nondistended Extremities: No edema Musculoskeletal: Moving all extremities Neuro: No overt focal neurological deficits Skin: No rashes appreciated Psych: Cooperative Medical Records Data Medical Nutrition Assessment Dietitian: Malnutrition Criteria Met Start: 02/10/25 12:20 Freq: Status: Active Protocol: Document 02/10/25 12:21 SLA (Rec: 02/10/25 12:21 SLA [id number]) Nutrition Malnutrition Evidence of Yes Malnutrition Exists Malnutrition (severe Chronic ): Evidenced By Suboptimal Energy Intake (Severe),Weight Loss (Severe), Physical Changes (Severe) Clinical Problem Chronic Disease or Condition Related Malnutrition Etiology related to increased nutritional needs r/t COPD and hx of lung cancer - pt with inadequate energy intake Signs/Symptoms as evidenced by po intake <50-74% of est nutritional needs, 18% unplanned wt loss and severe fat/muscle loss throughout body x past 6 mo. BMI = 14.7 Status Active Problem Recommendation Dietitian Will continue liberal regular diet - add fortified Recommendations/ foods as able for increased nutrition if consumed Changes Continue 4 oz ensure plus high protein 4x/day w/ medpass Continue to follow and monitor (more content not included)... [facility] 02-03-2023 Evaluation note Encounter Date Diagnosis Assessment Notes Jan, Need for vaccination (ICD-10 - Z23) [facility] Other 10-16-2023 Evaluation note* Encounter Date Diagnosis Assessment Notes Treatment Notes Treatment Clinical Notes Jan, Anxiety associated with depression (ICD-10 - F41.8) [facility] Other 10-16-2023 Evaluation note* Encounter Date Diagnosis [...] was encouraged to find a PCP in [place] for management. She is to get Prevnar 20 vaccine in [place]. [facility] Other 09-28-2023 Evaluation note* Encounter Date Diagnosis Assessment Notes Treatment Notes Treatment Clinical Notes Dec, Anxiety associated with depression (ICD-10 - F41.8) [facility] Other 08-28-2023 Evaluation note* Encounter Date Diagnosis Assessment Notes Treatment Notes Treatment Clinical Notes Nov, Anxiety associated with depression (ICD-10 - F41.8) [facility] Other 07-31-2023 Evaluation note* Encounter Date Diagnosis Assessment Notes Treatment Notes Treatment Clinical Notes Oct, Anxiety associated with depression (ICD-10 - F41.8) [facility] Other 07-31-2023 Evaluation note* Encounter Date Diagnosis [...] discussing the need for absolute smoking cessation. [facility] Other 07-06-2023 Evaluation note* Encounter Date Diagnosis Assessment Notes Treatment Notes Treatment Clinical Notes Oct, Anxiety associated with depression (ICD-10 - F41.8) [facility] Other 06-06-2023 Evaluation note* Encounter Date Diagnosis [...] finding of lung field (ICD-10 - R91.8) [facility] Other 06-05-2023 Evaluation note* Encounter Date Diagnosis Assessment Notes Treatment Notes Treatment Clinical Notes Sep, Anxiety associated with depression (ICD-10 - F41.8) [facility] Other 05-08-2023 Evaluation note* Encounter Date Diagnosis Assessment Notes Treatment Notes Treatment Clinical Notes August, Anxiety associated with depression (ICD-10 - F41.8) [facility] Other 04-24-2023 Evaluation note* Encounter Date Diagnosis [...] been negative, with followup 09/30 with pulmonology...... [facility] Other 04-05-2023 Evaluation note* Encounter Date Diagnosis Assessment Notes Treatment Notes Treatment Clinical Notes Jul, Anxiety (ICD-10 - F41.9) [facility] Other 03-06-2023 Evaluation note* Encounter Date Diagnosis Assessment Notes Treatment Notes Treatment Clinical Notes Jun, Anxiety (ICD-10 - F41.9) [facility] Other 02-06-2023 Evaluation note* Encounter Date Diagnosis Assessment Notes Treatment Notes Treatment Clinical Notes May, Anxiety (ICD-10 - F41.9) [facility] Other 01-26-2023 Evaluation note* Encounter Date Diagnosis [...] is to have the second Bivalent booster [facility] Other 01-25-2023 Evaluation note* Encounter Date Diagnosis Assessment Notes Treatment Notes Treatment Clinical Notes Apr, COPD (chronic obstructive pulmonary disease) (ICD-10 - J44.9) [facility] Other 01-04-2023 Evaluation note* Encounter Date Diagnosis Assessment Notes Treatment Notes Treatment Clinical Notes Apr, Anxiety (ICD-10 - F41.9) [facility] Other 12-05-2022 Evaluation note* Encounter Date Diagnosis Assessment Notes Treatment Notes Treatment Clinical Notes Mar, Anxiety (ICD-10 - F41.9) [facility] Other 10-28-2022 Evaluation note* Encounter Date Diagnosis [...] on clothing, she was referred to derm [facility] Other 10-06-2022 Evaluation note* Encounter Date Diagnosis Assessment Notes Treatment Notes Treatment Clinical Notes Jan, Anxiety (ICD-10 - F41.9) [facility] Other 09-07-2022 Evaluation note* Encounter Date Diagnosis Assessment Notes Treatment Notes Treatment Clinical Notes Dec, Anxiety (ICD-10 - F41.9) [facility] Other 08-09-2022 Evaluation note* Encounter Date Diagnosis Assessment Notes Treatment Notes Treatment Clinical Notes Nov, Anxiety (ICD-10 - F41.9) [facility] Other 07-11-2022 Evaluation note* Encounter Date Diagnosis Assessment Notes Treatment Notes Treatment Clinical Notes Oct, Anxiety (ICD-10 - F41.9) [facility] Other 06-08-2022 Evaluation note* Encounter Date Diagnosis Assessment Notes Treatment Notes Treatment Clinical Notes Sep, Anxiety (ICD-10 - F41.9) [facility] Other 05-09-2022 Evaluation note* Encounter Date Diagnosis Assessment Notes Treatment Notes Treatment Clinical Notes August, Anxiety (ICD-10 - F41.9) [facility] Other 04-11-2022 Evaluation note* Encounter Date Diagnosis Assessment Notes Treatment Notes Treatment Clinical Notes Jul, Anxiety (ICD-10 - F41.9) [facility] Other 09-01-2016 History general Narrative - Reported* Type Description Date Medical History generalized osteoarthritis Medical History chronic depression Medical History COPD Medical History Lung Ca (12/2015) Surgical History T & A Surgical History kidney stone Surgical History D&C Surgical History Thoracotomy, Left (Dr. Pereyra) 12/15/15 Hospitalization History tonsillectomy [facility] Other [facility]No [facility] Other Evaluation noteNo assessment information available [facility] Work Phone: Reason for referral (narrative)No reason for referral information [facility] Work Phone: Chief Complaint and Reason for Visit Chief Complaint R eye swelling, blur ry vision, pain trouble breathing, cough Chief Complaint R eye swelling, blur ry vision, pain trouble breathing, cough left ear pain Chief Complaint left ear pain Z12.31 Z78.0 Chief Complaint Z00.00;E78.5;J44.9 Z12.31 Z78.0 Chief Complaint j44.9 z87.891 z85.11 8 Chief Complaint RASH Chief Complaint LUNG CA Advance Directives No Advanced Directives Records Found Advance Directive Response Recorded Date/ Time Advance Directives No December 03, 2016 10:02am Advance Directive Response Recorded Date/ Time Advance Directives No December 03, 2016 9:02am Advance Directive Response Recorded Date/ Time Living Will No February 14 8:47am Power of Welding Machine Tender No February 14, 2023 8:47am Advance Directive Response Recorded Date/ Time Living Will No February 14 9:47am Power of Welding Machine Tender No February 14, 2023 9:47am Reason for Referral Reason skin lesion removal Diagnosis 1 SK (seborrheic kerat osis) (L82.1) Referral Organization [facility] Referring Provider First Name Shannon Referring Provider Last Name Jaziel Referring Provider Specialty Nurse Pract itioner Referred Provider Specialty Dermatology Referral Priority Routine Summary Purpose Family History No Family History Records FoundNo Family History Records Found Additional Source Comments [...] content) Team Status: Inactive Member Role Status Luis Manuel Serna MD Primary Care Provider Active Roman Tinsley DO Emergency Provider Active Team Status: Inactive Member Role Status Luis Manuel Serna MD Primary Care Provider Active Burak Garrido APRN Emergency Provider Active Team Status: Active Member Role Status Luis Manuel Serna MD Primary Care Provider Active Team Status: Inactive Member Role Status Luis Manuel Serna MD Primary Care Provider Active Nicole Malik , OFFICE TECHNOLOGY INSTRUCTOR- Emergency Provider Active Team Status: Inactive Member Role Status Luis Manuel Serna MD Primary Care Provider Active Shannon Sheriff PHYSICIAN SURGEON-C Attending Provider Active Team Status: Inactive Member Role Status Luis Manuel Serna MD Primary Care Provider Active Indio Davidson MD Attending Provider Active Team Status: Active Member Role Status Dates No Primary Care Physician Primary Care Provider Active Team Status: Inactive Member Role Status Luis Manuel Arizmendi DO Emergency Provider Active No Primary Care Physician Primary Care Provider Active Team Status: Inactive Member Role Status Dates No Primary Care Physician Primary Care Provider Active Mariel Duke MD Attending Provider, Referring Provide r Active Team Status: Inactive Member Role Status Luis Manuel Arizmendi DO Attending Provider, Emergency Pro vider Active No Primary Care Physician Primary Care Provider Active Team Status: Active Member Role Status Luis Manuel Duke MD Primary Care Provider Active Team Status: Inactive Member Role Status Luis Manuel Duke MD Primary Care Provide r, Attending Provider, Referring Provider Active Team Status: Inactive Member Role Status Luis Manuel Duke MD Primary Care Provider Active St art: August 19, 2024 End: August 19, 2024 Mariel Duke MD Attending Provider Active Start : August 19, 2024 End: August 19, 2024 Mariel Duke MD Referring Provider Active Start : August 19, 2024 End: August 19, 2024 Team Status: Inactive Member Role Status Luis Manuel Duke MD Primary Care Provider Active St art: September 03, 2024 End: September 03, 2024 Mariel Duke MD Attending Provider Active Start : September 03, 2024 End: September 03, 2024 Mariel Duke MD Referring Provider Active Start : September 03, 2024 End: September 03, 2024 Goals (unrecognized section and content) Goals may be documented in a n alternate section INFORMATION SOURCE (unrecogn ized section and content) DATE CREATED AUTHOR 08/18/2022 [facility] DATE CREATED AUTHOR AUTHOR'S MIAN MADDEN 02/19/2025 [facility] FOR RECORDS PERTAINING TO PATIENTS WHO ARE [...] BE BASED ON THE PRIMARY CLINICAL RECORDS. [employer] [facility]. provides no warranty or guarantee of the accuracy or completeness of information in this document.
== END | disposition home or self-care (01) ==
LOC: OPBD 16:26
PROVIDERS: PCP Family Medicine
DX: Z13.820 Encounter for screening for osteoporosis (principal); Z78.0 Asymptomatic menopausal state; Z12.2 Encounter for screening for malignant neoplasm of respiratory organs; F17.210 Nicotine dependence, cigarettes, uncomplicated
CPT/HCPCS: 71271; 77080